=== PATIENT | female | born 1940 | race Caucasian/White ===

== ENCOUNTER 2017-08-25 17:06 | Inpatient (IN) | payer MEDICARE, MEDICAID ==
--- NOTE | 2017-08-25 17:30 | ED Physician Chart ---
ED Chief Complaint/HPI - Patient Information Date Seen:: 08/25/17 Time Seen:: 17:29 Chief Complaint:: AGITATION, CRYING, FLAILING CONFUSED Allergies:: Allergies Allergy/AdvReac Type Severity Reaction Status Date / Time acetaminophen [From Tylenol] Allergy Verified 08/25/17 17:29 aspirin Allergy Verified 08/25/17 17:29 codeine Allergy Verified 08/25/17 17:29 Penicillins Allergy Verified 08/25/17 17:28 Sulfa (Sulfonamide Allergy Verified 08/25/17 17:28 Antibiotics) THE PATIENT IS DEMENTED AND UNABLE TO PROVIDE ANY INFORMATION REGARDING HER HISTORY OF PRESENT ILLNESS. Review:: Nurse's Note Reviewed, Transfer documents Reviewed ED Review of Systems - Review of Systems General/Constitutional: Other (PATIENT IS UNABLE TO PROVIDE ANY RELIABLE INFORMATION REGARDING REVIEW OF SYSTEMS. SHE DOES NOT ANSWER YES OR NO TO ANY OF THE QUESTIONS AND IS UNCOOPERATIVE WITH SIMPLE COMMANDS SUCH SQUEEZE MY FINGERS.) ED Past Medical History - Past Medical History Past Medical History: HTN, DM, CAD, CHF, CVA/TIA, Dementia Social History: Other (PATIENT UNABLE TO PROVIDE INFORMATION ON TOBACCO, ALCOHOL AND DRUG USE DUE TO DEMENTIA.) Family Medical History - Family Member Mother History Unknown: Yes ED Physical Exam - Physical Examination General/Constitutional: Awake, Well-developed, well-nourished, No distress, Non- toxic appearing Other Gen/Cons comments:: Nonambulatory. Head: Atraumatic Eyes: Lids, conjuctiva normal, PERRL Other Eyes comments:: Patient does not cooperate with EOM examination. Skin: No rash, No skin lesions, No ecchymosis, Well hydrated, No lymphadenopathy Other Skin comments:: No visible or palpable evidence of recent head injury. ENMT: External ears, nose nl, TM canals nl Other ENMT comments:: Gag reflex is active. patient is edentulous without plates. Neck: Nontender, Full ROM w/o pain, No JVD, No nuchal rigidity, No bruit, No mass, No stridor Respiratory: Nl effort/Exclusion, No Wheeze/Rhonchi/Rales Cardio Vascular: No murmur, gallop, rubs, NL S1 S2 Other Cardio Vascular comments:: Patient with adequate pulses in all 4 extremities. GI: No tenderness/rebounding/guarding, No organomegaly, No hernia, Normal BS's, Nondistended, No mass/bruits, No McBurney tenderness Other GI comments:: Rectal examination deferred at my discretion. : No CVA tenderness Other comments:: Pelvic examination deferred at my discretion. No female port traffic manager available. Ankle splint left lower extremity no obvious swelling and minimal tenderness on palpation over the lateral and medial malleoli. ED Labs/Radiology/EKG Results - Lab Results Results: Laboratory Results - last 24 hr 08/25/17 17:56 WBC 7.2 RBC 3.46 L Hgb 11.4 L Hct 33.1 L MCV 95.5 MCH 32.8 H MCHC Differential 34.4 RDW 13.5 Plt Count 369 MPV 7.1 Neutrophils % 54.9 Lymphocytes % 33.8 Monocytes % 7.7 Eosinophils % 2.9 Basophils % 0.7 The CBC is unremarkable with no leukocytosis, a mild anemia with a hemoglobin of 11.4 and platelet count within the normal parameters. Comprehensive metabolic panel pending at this time ED Assessment - Assessment General Assessment: CASE SUMMARY: THIS 76-YEAR-OLD FEMALE WAS SENT TO THE HOSPITAL BECAUSE OF INAPPROPRIATE CRYING, AGITATION, AND CONFUSION. THE TIME OF EXAMINATION THERE WAS NO EVIDENCE OF HEAD INJURY AND CRANIAL NERVES APPEARED TO BE INTACT. PATIENT DOES NOT ANSWER TO SIMPLE QUESTIONS SUCH WHAT IS YOUR NAME AND DOES NOT FOLLOW SIMPLE COMMANDS SUCH SQUEEZE MY FINGERS. THE PATIENT'S CHEST, ABDOMEN AND EXTREMITIES APPEAR TO BE NORMAL. CBC RETURNS WITH A NORMAL WHITE COUNT AND A MILD ANEMIA. ED Septic Shock - . Is Septic Shock (SBP<90, OR Lactate>4 mmol\L) present?: No ED Reassessment (Disposition) - Reassessment Reassessment Condition:: Unchanged - Diagnosis Diagnosis:: DEMENTIA/AGITATION NO EVIDENCE FOR SEPSIS. MEDICALLY CLEAR FOR ADMISSION TO GERIATRIC/PSYCH [facility]. ED Discharge Plan - Patient Disposition Admit/Discharge/Transfer: Acute Care w/in this hosp Condition at Disposition: Stable
[2017-08-25 18:03] LABS: % BASOPHILS 0.7 % (0.0-2.0); % EOSINOPHILS 2.9 % (0.0-5.0); % LYMPHOCYTES 33.8 % (20.0-50.0); % MONOCYTES 7.7 % (2.0-10.0); % NEUTROPHILS 54.9 % (40.0-80.0); BASOPHILE ABSOLUTE 0.1 Th/cumm (0-0.2); EOSINOPHILE ABSOLUTE 0.2 Th/cmm (0.1-0.4); HEMATOCRIT 33.1 % (41.0-60); HEMOGLOBIN 11.4 gm/dL (12-16); LYMPHOCYTE ABSOLUTE 2.4 Th/cmm (1.5-3.0); MEAN CELL VOLUME 95.5 fl (81-100); MEAN CORPUSCULAR HEMOGLOBIN 32.8 pg (27.0-31.0); MEAN CORPUSCULAR HGB CONC 34.4 pg (28.0-36.0); MEAN PLATELET VOLUME 7.1 fl; MONOCYTE ABSOLUTE 0.6 Th/cmm (0.3-1.0); NEUTROPHILE ABSOLUTE 3.9 Th/cmm (1.8-8.0); PLATELET COUNT 369 Th/cmm (150-400); RED BLOOD COUNT 3.46 Mil/cmm (3.80-5.20); RED CELL DISTRIBUTION WIDTH 13.5 % (11.5-20.0); WHITE BLOOD COUNT 7.2 Th/cmm (4.8-10.8)
[2017-08-25 18:18] LABS: ALB/GLOB RATIO 1.2 (1.0-1.8); ALBUMIN 3.6 gm/dL (3.7-5.3); ALKALINE PHOSPHATASE 62 U/L (34-104); ANION GAP 10.8 (7.0-16.0); BILIRUBIN,TOTAL 0.3 mg/dL (0.3-1.0); BUN - UREA NITROGEN 23 mg/dL (7-25); CALCIUM SERUM 9.5 mg/dL (8.6-10.3); CHLORIDE 102 mEq/L (98-107); CREATININE - SERUM 0.7 mg/dL (0.6-1.2); GLUCOSE 192 mg/dL (70-105); POTASSIUM SERUM 3.8 mEq/L (3.5-5.1); SGOT 15 U/L (13-39); SGPT/ALT 18 U/L (7-52); SODIUM SERUM 135 mEq/L (136-145); TOTAL PROTEIN,SERUM 6.7 gm/dL (6.0-8.3)
[2017-08-25 20:44] VITALS: BP 147/70
[2017-08-25] MEDS ORDERED: Maalox 30 mL Cup PO PRN (20:45)
[2017-08-25] MEDS ORDERED: Magnesium Hydroxide (MOM) 30 mL UDC PO PRN (20:45)
[2017-08-25] MEDS ORDERED: [UNRECOGNIZED DRUG - OTHER] PO PRN (20:50)
[2017-08-25] MEDS ORDERED: Fleet Enema 135 mL RC PRN (20:50)
[2017-08-25] MEDS ORDERED: Non-Formulary Item 1 EA (Melatonin [Melatonin] 9 MG) PO SCH (21:00)
[2017-08-26] MEDS ORDERED: [UNRECOGNIZED DRUG - OTHER] PO SCH (09:00)
--- NOTE | 2017-08-26 09:06 | Diagnostic Imaging Report ---
Portable chest x-ray HISTORY: Shortness of breath The overall heart size is difficult to assess with portable technique in a poor inspiration. No acute focal bony processes. Atherosclerotic calcification seen in the aortic arch. IMPRESSION: 1. No acute focal pulmonary processes 2. Atherosclerotic vascular changes
[2017-08-26] MEDS: Lactulose 10 Gm/15 mL 30mL UDC PO SCH ×3 (09:27→17:06)
[2017-08-26] MEDS: Multivitamin Tab PO SCH ×2 (09:28→09:39)
[2017-08-26] MEDS: Hydrogel 3 oz Tube TP SCH (09:30)
--- NOTE | 2017-08-26 17:23 | History & Physical ---
ADMIT DATE: 08/26/2017 REASON FOR ADMISSION: Agitation. HISTORY OF PRESENT ILLNESS: A 76-year-old female presents after apparently getting agitated and crying. The patient was brought to the Emergency Room. No acute medical findings were found. The patient is being admitted for further treatment and care. The patient is a poor historian, appears in no pain or distress. PAST MEDICAL HISTORY: The patient has history of diabetes mellitus, dementia, also noted in records, the patient has hypertension, coronary artery disease, congestive heart failure, previous history of CVA or TIA. MEDICATIONS: As per reconciliation. ALLERGIES: No known drug allergies. SOCIAL HISTORY: No tobacco, alcohol or drug use. FAMILY HISTORY: Noncontributory. REVIEW OF SYSTEMS: IMMUNOLOGIC: . CARDIOVASCULAR: The patient has chronic heart disease and hypertension. GASTROINTESTINAL: No nausea, vomiting or diarrhea. ENDOCRINE: The patient is diabetic. . NEUROLOGIC: No seizure or stroke. HEMATOLOGIC: No bleeding or clotting disorder. PHYSICAL EXAMINATION: GENERAL: The patient is awake and alert, in no acute distress. VITAL SIGNS: Temperature 98.0, pulse 96, respiration 18, blood pressure 141/84. HEENT: Pupils equally round, anicteric sclerae. NECK: Supple, no JVD, mass or bruit. LUNGS: Clear to auscultation. HEART: S1, S2 regular rate and rhythm. ABDOMEN: Soft, nontender, positive bowel sounds. EXTREMITIES: No clubbing, cyanosis, or edema. NEUROLOGIC: Unable to follow command. LABORATORY DATA: WBC is 7.2, hemoglobin 11.4, sodium is 135, glucose is 192, albumin is 3.6. IMPRESSION: 1. Diabetes mellitus. 2. Dementia. 3. Anemia. PLAN: Admit to Geropsych Unit. Continue with the patient's home medications. She is medically cleared to participate in activities. JOB# [id number]
[2017-08-26 17:59] LABS: A1C % 6.2 % (4.0-6.0)
--- NOTE | 2017-08-27 00:35 | Consultation ---
DATE OF CONSULTATION: 08/26/2017 INITIAL PSYCHIATRIC EVALUATION IDENTIFYING DATA: A 76-year-old female. REASON FOR HOSPITALIZATION: Agitation and psychotic behavior. CHIEF COMPLAINT: Irritable, crying, does not engage in conversation. HISTORY OF PRESENT ILLNESS: The patient is a 76-year-old female with a previous history of dementia and prediabetes, who was brought in here for workup, more irritable and agitated and crying. She was medically cleared from the ER. Today on [id number] evaluation, the patient wakes up, does not engage in conversation, becomes just crying, tearful, disengaged. Nursing staff overnight continues to report that she is not able to sleep and when she is awake, she just cries tearfully and does not engage in conversation, disengaged ____ is consistent with my interview. PAST MEDICAL HISTORY: Includes history of bimalleolar fracture of right ankle status post ORIF, osteopenia of the ankle. Hypertension, diabetes, CAD, CHF, and CVA with a history of TIA. PAST PSYCHIATRIC HISTORY: Dementia. ALLERGIES TO MEDICATIONS: NKDA. LEGAL HISTORY: Unknown. FAMILY PSYCHIATRIC HISTORY: Unknown. Labs were reviewed. ALLERGIES TO MEDICATION: Clarification seen by medical records include ASPIRIN, CODEINE, PENICILLINS and SULFA medications. SOCIAL HISTORY: Unable to give much information. Per medical records, no history of alcohol or drug use. CURRENT HOME MEDICATIONS: Include bisacodyl, famotidine, metformin, senna. MENTAL STATUS EXAMINATION: Calm, initially irritable, tearful and selectively mute, disengaging, able to assess thought process, thought content, observed to be disorganized, derails with conversations. Limited insight, judgment and impulse control. ONSET OF ILLNESS: Unknown. STRENGTH: Good family support system. WEAKNESSES: Poor coping skills. Physical pain 0/10. Physical impairment, none. PRIMARY DIAGNOSIS: Dementia with behavior disturbance and psychosis. SECONDARY DIAGNOSIS: None. MEDICAL DIAGNOSIS: As noted above. PLAN: The patient is a 76-year-old female with history of dementia with a teary mental status. Medically cleared from the medical unit. We will start the patient on Aricept and low dose of Seroquel. She continues to present very disorganized, resulting in self-injurious behavior. ESTIMATED LENGTH OF STAY: 5 to 10 days. DISCHARGE CRITERIA: Demonstrate euthymic mood. Engaging. JOB# [id number]
--- NOTE | 2017-08-27 09:17 | General Progress Note ---
Subjective - Review of Systems Service Date: 08/27/17 Subjective: awake, yelling spits out meds poor oral intake Objective - Results Result Diagrams: 08/25/17 17:56 08/25/17 17:56 Recent Labs: Laboratory Last Values WBC 7.2 Th/cmm (4.8-10.8) 08/25/17 17:56 RBC 3.46 Mil/cmm (3.80-5.20) L 08/25/17 17:56 Hgb 11.4 gm/dL (12-16) L 08/25/17 17:56 Hct 33.1 % (41.0-60) L 08/25/17 17:56 MCV 95.5 fl (81-100) 08/25/17 17:56 MCH 32.8 pg (27.0-31.0) H 08/25/17 17:56 MCHC Differential 34.4 pg (28.0-36.0) 08/25/17 17:56 RDW 13.5 % (11.5-20.0) 08/25/17 17:56 Plt Count 369 Th/cmm (150-400) 08/25/17 17:56 MPV 7.1 fl 08/25/17 17:56 Neutrophils % 54.9 % (40.0-80.0) 08/25/17 17:56 Lymphocytes % 33.8 % (20.0-50.0) 08/25/17 17:56 Monocytes % 7.7 % (2.0-10.0) 08/25/17 17:56 Eosinophils % 2.9 % (0.0-5.0) 08/25/17 17:56 Basophils % 0.7 % (0.0-2.0) 08/25/17 17:56 Sodium 135 mEq/L (136-145) L 08/25/17 17:56 Potassium 3.8 mEq/L (3.5-5.1) 08/25/17 17:56 Chloride 102 mEq/L (98-107) 08/25/17 17:56 Carbon Dioxide 26.0 mEq/L (21.0-31.0) 08/25/17 17:56 Anion Gap 10.8 (7.0-16.0) 08/25/17 17:56 BUN 23 mg/dL (7-25) 08/25/17 17:56 Creatinine 0.7 mg/dL (0.6-1.2) 08/25/17 17:56 Est GFR ( Amer) TNP 08/25/17 17:56 Est GFR (Non-Af Amer) TNP 08/25/17 17:56 BUN/Creatinine Ratio 32.9 08/25/17 17:56 Glucose 192 mg/dL (70-105) H 08/25/17 17:56 Hemoglobin A1c % 6.2 % (4.0-6.0) H 08/25/17 17:56 Whole Bld Lactic Acid 1.57 mmol/L (0.60-1.99) 08/25/17 17:56 Calcium 9.5 mg/dL (8.6-10.3) 08/25/17 17:56 Total Bilirubin 0.3 mg/dL (0.3-1.0) 08/25/17 17:56 AST 15 U/L (13-39) 08/25/17 17:56 ALT 18 U/L (7-52) 08/25/17 17:56 Alkaline Phosphatase 62 U/L (34-104) 08/25/17 17:56 Total Protein 6.7 gm/dL (6.0-8.3) 08/25/17 17:56 Albumin 3.6 gm/dL (3.7-5.3) L 08/25/17 17:56 Globulin 3.1 gm/dL 08/25/17 17:56 Albumin/Globulin Ratio 1.2 (1.0-1.8) 08/25/17 17:56 - Physical Exam Vitals and I&O: Vital Signs Temp 97 F 08/27/17 05:26 Pulse 91 08/27/17 05:26 Resp 18 08/27/17 05:26 BP 121/97 08/27/17 05:26 Pulse Ox 95 08/27/17 05:26 Intake & Output 08/26/17 08/27/17 08/27/17 18:59 06:59 18:59 Intake Total 900 360 Balance 900 360 Intake: Oral 900 360 Other: # Voids 3 1 Active Medications: Current Medications Acetaminophen (Tylenol) 650 mg PO Q4H PRN PRN Reason: Mild Pain / Temp above 100 Stop: 10/24/17 20:44 Al Hydrox/Mg Hydrox/Simethicone (Maalox) 30 ml PO Q4H PRN PRN Reason: GI DISTRESS Stop: 10/24/17 20:44 Bandage/Support Products (Hydrogel) 1 appl TP DAILY [facility] Stop: 10/25/17 08:59 Last Admin: 08/26/17 09:30 Dose: 1 appl Bisacodyl (Dulcolax 5 Mg Ec Tab) 10 mg PO DAILY PRN PRN Reason: Constipation Stop: 10/24/17 20:49 Donepezil HCl (Aricept) 5 mg PO DAILY [facility] Stop: 10/25/17 08:59 Last Admin: 08/26/17 09:38 Dose: Not Given Ergocalciferol (Vitamin D) 50,000 iu PO QWEEK [facility] Stop: 10/26/17 08:59 Famotidine (Pepcid) 20 mg PO DAILY [facility] Stop: 10/25/17 08:59 Last Admin: 08/26/17 09:38 Dose: Not Given Lactulose (Cephulac) 10 gm PO BID [facility] Stop: 10/25/17 08:59 Last Admin: 08/26/17 17:06 Dose: Not Given Lorazepam (Ativan) 0.5 mg PO Q4HR PRN; Protocol PRN Reason: Anxiety Stop: 09/24/17 20:44 Magnesium Hydroxide (Milk Of Magnesia) 30 ml PO HS PRN PRN Reason: Constipation Megestrol Acetate (Megace) 400 mg PO DAILY [facility] Stop: 10/25/17 08:59 Last Admin: 08/26/17 09:38 Dose: Not Given Metformin HCl (Glucophage) 500 mg PO DAILY [facility] Stop: 10/25/17 08:59 Last Admin: 08/26/17 09:39 Dose: Not Given Multivitamins/Vitamin C (Theragran) 1 tab PO DAILY [facility] Stop: 10/25/17 08:59 Last Admin: 08/26/17 09:39 Dose: Not Given Oxycodone HCl (Oxycodone Ir) 2.5 mg PO Q6H PRN PRN Reason: Pain (Severe) Stop: 10/25/17 07:29 Quetiapine Fumarate (Seroquel) 12.5 mg PO BID JIL PRN Reason: Protocol Stop: 10/25/17 08:59 Last Admin: 08/26/17 17:06 Dose: 12.5 mg Senna (Senna) 8.6 mg PO BID PRN PRN Reason: Constipation Stop: 10/24/17 20:49 Sodium Phosphate (Fleet Enema) 135 ml RC DAILY PRN PRN Reason: NO BM IN THREE DAYS Stop: 10/24/17 20:49 Tramadol HCl (Ultram) 50 mg PO Q6H PRN PRN Reason: MODERATE PAIN Stop: 10/24/17 20:49 Last Admin: 08/26/17 18:31 Dose: 50 mg Zolpidem Tartrate (Ambien) 5 mg PO HS PRN PRN Reason: Insomnia Stop: 10/24/17 20:44 Last Admin: 08/26/17 20:08 Dose: 5 mg General: No acute distress HEENT: Atraumatic Neck: Supple, JVD Cardiovascular: Regular rate, Normal S1, Normal S2 Lungs: Clear to auscultation Abdomen: Bowel sounds, Soft - Procedures Procedures: Procedures Procedure Code Date EXCIS KNEE SEMILUN CARTL 80.6 02/12/04 INJECT/INFUSE NEC 99.29 10/09/07 KNEE ARTHROSCOPY/SURGERY 11134 02/12/04 KNEE ARTHROSCOPY/SURGERY 33988 02/12/04 OTHER REPAIR OF KNEE 81.47 02/12/04 THER/PROPH/DIAG INJ, IV PUSH [id number] 10/09/07 TX/PRO/DX INJ NEW DRUG ADDON 67189 10/09/07 Assessment/Plan - Assessment Assessment: PSYCHIATRIC DISORDER DJD DM ANEMIA MILD PROTEIN MALNUTRITION - Plan Plan: CHECK BLOOD TEST ENCOURAGE HYDRATION TRY TO GIVE PAIN MEDS, PSYCH MEDS
[2017-08-27] MEDS: oxyCODONE 5 mg IR Tab PO PRN ×2 (09:22→20:16)
[2017-08-27 09:31] LABS: % BASOPHILS 0.7 % (0.0-2.0); % EOSINOPHILS 1.7 % (0.0-5.0); % LYMPHOCYTES 33.6 % (20.0-50.0); % MONOCYTES 6.9 % (2.0-10.0); % NEUTROPHILS 57.1 % (40.0-80.0); BASOPHILE ABSOLUTE 0.1 Th/cumm (0-0.2); EOSINOPHILE ABSOLUTE 0.1 Th/cmm (0.1-0.4); HEMATOCRIT 37.4 % (41.0-60); HEMOGLOBIN 12.6 gm/dL (12-16); LYMPHOCYTE ABSOLUTE 2.9 Th/cmm (1.5-3.0); MEAN CELL VOLUME 95.1 fl (81-100); MEAN CORPUSCULAR HEMOGLOBIN 32.1 pg (27.0-31.0); MEAN CORPUSCULAR HGB CONC 33.8 pg (28.0-36.0); MEAN PLATELET VOLUME 7.3 fl; MONOCYTE ABSOLUTE 0.6 Th/cmm (0.3-1.0); NEUTROPHILE ABSOLUTE 4.8 Th/cmm (1.8-8.0); PLATELET COUNT 408 Th/cmm (150-400); RED BLOOD COUNT 3.94 Mil/cmm (3.80-5.20); RED CELL DISTRIBUTION WIDTH 13.6 % (11.5-20.0); WHITE BLOOD COUNT 8.5 Th/cmm (4.8-10.8)
[2017-08-27 09:47] LABS: ANION GAP 12.6 (7.0-16.0); BUN - UREA NITROGEN 22 mg/dL (7-25); CALCIUM SERUM 10.1 mg/dL (8.6-10.3); CARBON DIOXIDE 23.3 mEq/L (21.0-31.0); CHLORIDE 102 mEq/L (98-107); CREATININE - SERUM 0.9 mg/dL (0.6-1.2); GLUCOSE 224 mg/dL (70-105); POTASSIUM SERUM 3.9 mEq/L (3.5-5.1); SODIUM SERUM 134 mEq/L (136-145)
[2017-08-27] MEDS: Lactulose 10 Gm/15 mL 30mL UDC PO SCH ×2 (12:17→16:50)
[2017-08-27] MEDS: Multivitamin Tab PO SCH (12:17)
[2017-08-27 15:52] LABS: URINE MICROSCOPIC INDICATED? YES; URINE SOURCE CATH
[2017-08-27 15:53] LABS: URINE BILIRUBIN NEGATIVE (NEGATIVE); URINE BLOOD NEGATIVE (NEGATIVE); URINE CLARITY CLEAR (CLEAR); URINE COLOR YELLOW; URINE GLUCOSE (UA) NEGATIVE (NEGATIVE); URINE KETONE NEGATIVE (NEGATIVE); URINE LEUKOCYTE ESTERASE NEGATIVE (NEGATIVE); URINE NITRATE NEGATIVE (NEGATIVE); URINE PH 5.5 (4.6 - 8.0); URINE PROTEIN NEGATIVE (NEGATIVE); URINE UROBILINOGEN 0.2 E.U./dL (0.2 - 1.0)
[2017-08-27 15:58] LABS: URINE EPITHELIAL CELLS FEW /lpf (FEW)
[2017-08-27 15:59] LABS: URINE AMORPHOUS SEDIMENT MODERATE URATES (NONE SEEN); URINE BACTERIA MODERATE /hpf (NONE SEEN)
--- NOTE | 2017-08-27 18:15 | Progress Notes ---
DATE: 08/27/[address] Galindo. SUBJECTIVE: Today, the patient is observed selectively mute, withdrawn, disengaged and upon approach, does not give much more information. Overnight, nursing staff reported the patient slept overnight, but has been minimally interactive and very disengaged. I appreciate the physical examination and consultation from Dr. Anders, diagnosed with diabetes, dementia, and anemia. MENTAL STATUS EXAMINATION: Withdrawn, disengaged. LABORATORY DATA: Reviewed. ASSESSMENT AND PLAN: The patient is a 76-year-old female who presents very withdrawn and disengaged, unable to engage in conversation, selectively mute with bites on her lips, self-injurious behavior. We are going to have a second opinion come and evaluate the patient to evaluate for any other potential dehydration. Continue with the Seroquel at this point and continue monitoring, evaluating the patient's mental status. JOB# [id number]
[2017-08-27] MEDS: Hydrogel 3 oz Tube TP SCH (19:04)
[2017-08-27 20:07] LABS: URINE RBC 0-2 /hpf (0-5)
[2017-08-28] MEDS: oxyCODONE 5 mg IR Tab PO PRN ×3 (08:03→20:55)
[2017-08-28] MEDS: Lactulose 10 Gm/15 mL 30mL UDC PO SCH ×2 (08:21→16:48)
[2017-08-28] MEDS: Multivitamin Tab PO SCH (08:23)
[2017-08-28] MEDS: Hydrogel 3 oz Tube TP SCH (10:00)
--- NOTE | 2017-08-28 10:05 | Progress Notes ---
DATE: SUBJECTIVE: The patient was seen and evaluated. The patient's chart reviewed. Vital signs reviewed, stable. Labs on 08/27/2017 within normal limits. Some moderate bacteria. I appreciate Dr. Anders who recommends encouragement of hydration and continued with pain meds. Overnight is observed to the patient's Ativan is disinhibiting the patient. MENTAL STATUS EXAMINATION: Irritable observed to be in pain. ASSESSMENT AND PLAN: The patient is a 76-year-old female with severe dementia, disorganized and confused, thought process. We will obtain more collateral baseline information. We will discontinue the Ativan and continue with the Seroquel. She continues state. We will adjust and targeting pain per medical doctor recommendations. JOB# [id number]
--- NOTE | 2017-08-28 14:58 | General Progress Note ---
Subjective - Review of Systems Service Date: 08/28/17 Subjective: agitated off and on unable to communicate needs Objective - Results Result Diagrams: 08/27/17 09:25 08/27/17 09:25 Recent Labs: Laboratory Last Values WBC 8.5 Th/cmm (4.8-10.8) 08/27/17 09:25 RBC 3.94 Mil/cmm (3.80-5.20) 08/27/17 09:25 Hgb 12.6 gm/dL (12-16) 08/27/17 09:25 Hct 37.4 % (41.0-60) L 08/27/17 09:25 MCV 95.1 fl (81-100) 08/27/17 09:25 MCH 32.1 pg (27.0-31.0) H 08/27/17 09:25 MCHC Differential 33.8 pg (28.0-36.0) 08/27/17 09:25 RDW 13.6 % (11.5-20.0) 08/27/17 09:25 Plt Count 408 Th/cmm (150-400) H 08/27/17 09:25 MPV 7.3 fl 08/27/17 09:25 Neutrophils % 57.1 % (40.0-80.0) 08/27/17 09:25 Lymphocytes % 33.6 % (20.0-50.0) 08/27/17 09:25 Monocytes % 6.9 % (2.0-10.0) 08/27/17 09:25 Eosinophils % 1.7 % (0.0-5.0) 08/27/17 09:25 Basophils % 0.7 % (0.0-2.0) 08/27/17 09:25 Sodium 134 mEq/L (136-145) L 08/27/17 09:25 Potassium 3.9 mEq/L (3.5-5.1) 08/27/17 09:25 Chloride 102 mEq/L (98-107) 08/27/17 09:25 Carbon Dioxide 23.3 mEq/L (21.0-31.0) 08/27/17 09:25 Anion Gap 12.6 (7.0-16.0) 08/27/17 09:25 BUN 22 mg/dL (7-25) 08/27/17 09:25 Creatinine 0.9 mg/dL (0.6-1.2) 08/27/17 09:25 Est GFR ( Amer) TNP 08/27/17 09:25 Est GFR (Non-Af Amer) TNP 08/27/17 09:25 BUN/Creatinine Ratio 24.4 08/27/17 09:25 Glucose 224 mg/dL (70-105) H 08/27/17 09:25 Hemoglobin A1c % 6.2 % (4.0-6.0) H 08/25/17 17:56 Whole Bld Lactic Acid 1.57 mmol/L (0.60-1.99) 08/25/17 17:56 Calcium 10.1 mg/dL (8.6-10.3) 08/27/17 09:25 Total Bilirubin 0.3 mg/dL (0.3-1.0) 08/25/17 17:56 AST 15 U/L (13-39) 08/25/17 17:56 ALT 18 U/L (7-52) 08/25/17 17:56 Alkaline Phosphatase 62 U/L (34-104) 08/25/17 17:56 Total Protein 6.7 gm/dL (6.0-8.3) 08/25/17 17:56 Albumin 3.6 gm/dL (3.7-5.3) L 08/25/17 17:56 Globulin 3.1 gm/dL 08/25/17 17:56 Albumin/Globulin Ratio 1.2 (1.0-1.8) 08/25/17 17:56 Urine Source CATH 08/27/17 14:50 Urine Color YELLOW 08/27/17 14:50 Urine Clarity CLEAR (CLEAR) 08/27/17 14:50 Urine pH 5.5 (4.6 - 8.0) 08/27/17 14:50 Ur Specific [place] >= 1.030 (1.005-1.030) 08/27/17 14:50 Urine Protein NEGATIVE mg/dL (NEGATIVE) 08/27/17 14:50 Urine Glucose (UA) NEGATIVE mg/dL (NEGATIVE) 08/27/17 14:50 Urine Ketones NEGATIVE mg/dL (NEGATIVE) 08/27/17 14:50 Urine Blood NEGATIVE (NEGATIVE) 08/27/17 14:50 Urine Nitrate NEGATIVE (NEGATIVE) 08/27/17 14:50 Urine Bilirubin NEGATIVE (NEGATIVE) 08/27/17 14:50 Urine Urobilinogen 0.2 E.U./dL (0.2 - 1.0) 08/27/17 14:50 Ur Leukocyte Esterase NEGATIVE (NEGATIVE) 08/27/17 14:50 Urine RBC 0-2 /hpf (0-5) 08/27/17 14:50 Urine WBC 2-5 /hpf (0-5) 08/27/17 14:50 Ur Epithelial Cells FEW /lpf (FEW) 08/27/17 14:50 Amorphous Sediment MODERATE URATES (NONE SEEN) 08/27/17 14:50 Urine Bacteria MODERATE /hpf (NONE SEEN) H 08/27/17 14:50 - Physical Exam Vitals and I&O: Vital Signs Temp 97.1 F 08/28/17 06:15 Pulse 103 08/28/17 06:15 Resp 19 08/28/17 06:15 BP 160/74 08/28/17 06:15 Pulse Ox 98 08/28/17 06:15 Intake & Output 08/27/17 08/28/17 08/28/17 18:59 06:59 18:59 Intake Total 800 300 Balance 800 300 Intake: Oral 800 300 Other: # Voids 4 2 # Bowel Movements 1 1 Active Medications: Current Medications Acetaminophen (Tylenol) 650 mg PO Q4H PRN PRN Reason: Mild Pain / Temp above 100 Stop: 10/24/17 20:44 Al Hydrox/Mg Hydrox/Simethicone (Maalox) 30 ml PO Q4H PRN PRN Reason: GI DISTRESS Stop: 10/24/17 20:44 Bandage/Support Products (Hydrogel) 1 appl TP DAILY [facility] Stop: 10/25/17 08:59 Last Admin: 08/28/17 10:00 Dose: 1 appl Bisacodyl (Dulcolax 5 Mg Ec Tab) 10 mg PO DAILY PRN PRN Reason: Constipation Stop: 10/24/17 20:49 Donepezil HCl (Aricept) 5 mg PO DAILY [facility] Stop: 10/25/17 08:59 Last Admin: 08/28/17 08:21 Dose: Not Given Ergocalciferol (Vitamin D) 50,000 iu PO QWEEK [facility] Stop: 10/26/17 08:59 Last Admin: 08/27/17 12:17 Dose: Not Given Famotidine (Pepcid) 20 mg PO DAILY [facility] Stop: 10/25/17 08:59 Last Admin: 08/28/17 08:21 Dose: Not Given Lactulose (Cephulac) 10 gm PO BID [facility] Stop: 10/25/17 08:59 Last Admin: 08/28/17 08:21 Dose: 10 gm Magnesium Hydroxide (Milk Of Magnesia) 30 ml PO HS PRN PRN Reason: Constipation Megestrol Acetate (Megace) 400 mg PO DAILY [facility] Stop: 10/25/17 08:59 Last Admin: 08/28/17 08:23 Dose: 400 mg Metformin HCl (Glucophage) 500 mg PO DAILY [facility] Stop: 10/25/17 08:59 Last Admin: 08/28/17 08:23 Dose: Not Given Multivitamins/Vitamin C (Theragran) 1 tab PO DAILY [facility] Stop: 10/25/17 08:59 Last Admin: 08/28/17 08:23 Dose: Not Given Oxycodone HCl (Oxycodone Ir) 2.5 mg PO Q6H PRN PRN Reason: Pain (Severe) Stop: 10/25/17 07:29 Last Admin: 08/28/17 14:39 Dose: 2.5 mg Quetiapine Fumarate (Seroquel) 25 mg PO BID JIL PRN Reason: Protocol Stop: 10/27/17 08:59 Last Admin: 08/28/17 08:24 Dose: 25 mg Senna (Senna) 8.6 mg PO BID PRN PRN Reason: Constipation Stop: 10/24/17 20:49 Sodium Phosphate (Fleet Enema) 135 ml RC DAILY PRN PRN Reason: NO BM IN THREE DAYS Stop: 10/24/17 20:49 Last Admin: 08/27/17 10:39 Dose: 135 ml Tramadol HCl (Ultram) 50 mg PO Q6H PRN PRN Reason: MODERATE PAIN Stop: 10/24/17 20:49 Last Admin: 08/27/17 17:26 Dose: 50 mg Zolpidem Tartrate (Ambien) 5 mg PO HS PRN PRN Reason: Insomnia Stop: 10/24/17 20:44 Last Admin: 08/26/17 20:08 Dose: 5 mg General: No acute distress HEENT: Atraumatic Neck: Supple, JVD Cardiovascular: Regular rate, Normal S1, Normal S2 Lungs: Clear to auscultation Abdomen: Bowel sounds, Soft - Procedures Procedures: Procedures Procedure Code Date EXCIS KNEE SEMILUN CARTL 80.6 02/12/04 INJECT/INFUSE NEC 99.29 10/09/07 KNEE ARTHROSCOPY/SURGERY 00210 02/12/04 KNEE ARTHROSCOPY/SURGERY 16625 02/12/04 OTHER REPAIR OF KNEE 81.47 02/12/04 THER/PROPH/DIAG INJ, IV PUSH [id number] 10/09/07 TX/PRO/DX INJ NEW DRUG ADDON 62202 10/09/07 Assessment/Plan - Assessment Assessment: PSYCHIATRIC DISORDER DJD DM ANEMIA MILD PROTEIN MALNUTRITION - Plan Plan: encourage PO liquids discussed with staff
[2017-08-29] MEDS: Hydrogel 3 oz Tube TP SCH (09:50)
[2017-08-29] MEDS: Lactulose 10 Gm/15 mL 30mL UDC PO SCH ×2 (09:53→17:54)
[2017-08-29] MEDS: Multivitamin Tab PO SCH (09:54)
--- NOTE | 2017-08-29 11:59 | Internal Medicine Prog Note ---
Internal Medicine Subjective - Subjective Service Date: 08/29/17 Patient seen and examined:: with staff Patient is:: awake, non-verbal, in bed, confused Per staff patient has:: no adverse event Internal Medicine Objective - Results Result Diagrams: 08/27/17 09:25 08/27/17 09:25 Recent Labs: Laboratory Last Values WBC 8.5 Th/cmm (4.8-10.8) 08/27/17 09:25 RBC 3.94 Mil/cmm (3.80-5.20) 08/27/17 09:25 Hgb 12.6 gm/dL (12-16) 08/27/17 09:25 Hct 37.4 % (41.0-60) L 08/27/17 09:25 MCV 95.1 fl (81-100) 08/27/17 09:25 MCH 32.1 pg (27.0-31.0) H 08/27/17 09:25 MCHC Differential 33.8 pg (28.0-36.0) 08/27/17 09:25 RDW 13.6 % (11.5-20.0) 08/27/17 09:25 Plt Count 408 Th/cmm (150-400) H 08/27/17 09:25 MPV 7.3 fl 08/27/17 09:25 Neutrophils % 57.1 % (40.0-80.0) 08/27/17 09:25 Lymphocytes % 33.6 % (20.0-50.0) 08/27/17 09:25 Monocytes % 6.9 % (2.0-10.0) 08/27/17 09:25 Eosinophils % 1.7 % (0.0-5.0) 08/27/17 09:25 Basophils % 0.7 % (0.0-2.0) 08/27/17 09:25 Sodium 134 mEq/L (136-145) L 08/27/17 09:25 Potassium 3.9 mEq/L (3.5-5.1) 08/27/17 09:25 Chloride 102 mEq/L (98-107) 08/27/17 09:25 Carbon Dioxide 23.3 mEq/L (21.0-31.0) 08/27/17 09:25 Anion Gap 12.6 (7.0-16.0) 05/27/18 09:25 BUN 22 mg/dL (7-25) 08/27/17 09:25 Creatinine 0.9 mg/dL (0.6-1.2) 08/27/17 09:25 Est GFR ( Amer) TNP 08/27/17 09:25 Est GFR (Non-Af Amer) TNP 08/27/17 09:25 BUN/Creatinine Ratio 24.4 08/27/17 09:25 Glucose 224 mg/dL (70-105) H 08/27/17 09:25 Hemoglobin A1c % 6.2 % (4.0-6.0) H 08/25/17 17:56 Whole Bld Lactic Acid 1.57 mmol/L (0.60-1.99) 08/25/17 17:56 Calcium 10.1 mg/dL (8.6-10.3) 08/27/17 09:25 Total Bilirubin 0.3 mg/dL (0.3-1.0) 08/25/17 17:56 AST 15 U/L (13-39) 08/25/17 17:56 ALT 18 U/L (7-52) 08/25/17 17:56 Alkaline Phosphatase 62 U/L (34-104) 08/25/17 17:56 Total Protein 6.7 gm/dL (6.0-8.3) 08/25/17 17:56 Albumin 3.6 gm/dL (3.7-5.3) L 08/25/17 17:56 Globulin 3.1 gm/dL 08/25/17 17:56 Albumin/Globulin Ratio 1.2 (1.0-1.8) 08/25/17 17:56 Urine Source CATH 08/27/17 14:50 Urine Color YELLOW 08/27/17 14:50 Urine Clarity CLEAR (CLEAR) 08/27/17 14:50 Urine pH 5.5 (4.6 - 8.0) 08/27/17 14:50 Ur Specific [place] >= 1.030 (1.005-1.030) 08/27/17 14:50 Urine Protein NEGATIVE mg/dL (NEGATIVE) 08/27/17 14:50 Urine Glucose (UA) NEGATIVE mg/dL (NEGATIVE) 08/27/17 14:50 Urine Ketones NEGATIVE mg/dL (NEGATIVE) 08/27/17 14:50 Urine Blood NEGATIVE (NEGATIVE) 08/27/17 14:50 Urine Nitrate NEGATIVE (NEGATIVE) 08/27/17 14:50 Urine Bilirubin NEGATIVE (NEGATIVE) 08/27/17 14:50 Urine Urobilinogen 0.2 E.U./dL (0.2 - 1.0) 08/27/17 14:50 Ur Leukocyte Esterase NEGATIVE (NEGATIVE) 08/27/17 14:50 Urine RBC 0-2 /hpf (0-5) 08/27/17 14:50 Urine WBC 2-5 /hpf (0-5) 08/27/17 14:50 Ur Epithelial Cells FEW /lpf (FEW) 08/27/17 14:50 Amorphous Sediment MODERATE URATES (NONE SEEN) 08/27/17 14:50 Urine Bacteria MODERATE /hpf (NONE SEEN) H 08/27/17 14:50 - Physical Exam Vitals and I&O: Vital Signs Temp 97.1 F 08/29/17 06:15 Pulse 94 08/29/17 06:15 Resp 19 08/29/17 06:15 BP 132/69 08/29/17 06:15 Pulse Ox 99 08/29/17 06:15 Intake & Output 08/28/17 08/29/17 08/29/17 18:59 06:59 18:59 Intake Total 850 180 Balance 850 180 Intake: Oral 850 180 Other: # Voids 3 1 # Bowel Movements 1 0 Active Medications: Current Medications Acetaminophen (Tylenol) 650 mg PO Q4H PRN PRN Reason: Mild Pain / Temp above 100 Stop: 10/24/17 20:44 Last Admin: 08/29/17 09:53 Dose: 650 mg Al Hydrox/Mg Hydrox/Simethicone (Maalox) 30 ml PO Q4H PRN PRN Reason: GI DISTRESS Stop: 10/24/17 20:44 Bandage/Support Products (Hydrogel) 1 appl TP DAILY [facility] Stop: 10/25/17 08:59 Last Admin: 08/29/17 09:50 Dose: 1 appl Bisacodyl (Dulcolax 5 Mg Ec Tab) 10 mg PO DAILY PRN PRN Reason: Constipation Stop: 10/24/17 20:49 Donepezil HCl (Aricept) 5 mg PO DAILY [facility] Stop: 10/25/17 08:59 Last Admin: 08/29/17 09:54 Dose: 5 mg Ergocalciferol (Vitamin D) 50,000 iu PO QWEEK [facility] Stop: 10/26/17 08:59 Last Admin: 08/27/17 12:17 Dose: Not Given Famotidine (Pepcid) 20 mg PO DAILY [facility] Stop: 10/25/17 08:59 Last Admin: 08/29/17 09:54 Dose: 20 mg Lactulose (Cephulac) 10 gm PO BID [facility] Stop: 10/25/17 08:59 Last Admin: 08/29/17 09:53 Dose: 10 gm Magnesium Hydroxide (Milk Of Magnesia) 30 ml PO HS PRN PRN Reason: Constipation Megestrol Acetate (Megace) 400 mg PO DAILY [facility] Stop: 10/25/17 08:59 Last Admin: 08/29/17 09:53 Dose: 400 mg Metformin HCl (Glucophage) 500 mg PO DAILY [facility] Stop: 10/25/17 08:59 Last Admin: 08/29/17 09:54 Dose: 500 mg Multivitamins/Vitamin C (Theragran) 1 tab PO DAILY [facility] Stop: 10/25/17 08:59 Last Admin: 08/29/17 09:54 Dose: 1 tab Oxycodone HCl (Oxycodone Ir) 2.5 mg PO Q6H PRN PRN Reason: Pain (Severe) Stop: 10/25/17 07:29 Last Admin: 08/28/17 20:55 Dose: 2.5 mg Quetiapine Fumarate (Seroquel) 25 mg PO BID [facility] PRN Reason: Protocol Stop: 10/27/17 08:59 Last Admin: 08/29/17 09:53 Dose: 25 mg Senna (Senna) 8.6 mg PO BID PRN PRN Reason: Constipation Stop: 10/24/17 20:49 Sodium Phosphate (Fleet Enema) 135 ml RC DAILY PRN PRN Reason: NO BM IN THREE DAYS Stop: 10/24/17 20:49 Last Admin: 08/27/17 10:39 Dose: 135 ml Tramadol HCl (Ultram) 50 mg PO Q6H PRN PRN Reason: MODERATE PAIN Stop: 10/24/17 20:49 Last Admin: 08/27/17 17:26 Dose: 50 mg Zolpidem Tartrate (Ambien) 5 mg PO HS PRN PRN Reason: Insomnia Stop: 10/24/17 20:44 Last Admin: 08/28/17 20:55 Dose: 5 mg General: demented HEENT: NC/AT, PERRLA, EOMI, anicteric sclerae, throat clear Neck: Supple, No JVD, No thyromegaly, +2 carotid pulse wo bruit, No LAD, + JVD Lungs: CTAB Cardiovascular: RRR, Normal S1, Normal S2, without murmur Abdomen: non-tender, non-distended Extremities: clear Neurological: no change - Procedures Procedures: Procedures Procedure Code Date EXCIS KNEE SEMILUN CARTL 80.6 02/12/04 INJECT/INFUSE NEC 99.29 10/09/07 KNEE ARTHROSCOPY/SURGERY 11778 02/12/04 KNEE ARTHROSCOPY/SURGERY 17878 02/12/04 OTHER REPAIR OF KNEE 81.47 02/12/04 THER/PROPH/DIAG INJ, IV PUSH 21229 10/09/07 TX/PRO/DX INJ NEW DRUG ADDON 58743 10/09/07 Internal Medicine Assmt/Plan - Assessment Assessment: 1.DM. 2.ANEMIA. 3.DEMENTIA. - Plan Plan: CONTINUE ON CURRENT MEDICATION AND DIET.
[2017-08-29] MEDS: Venelex 60gm Tube TP SCH (16:55)
[2017-08-29] MEDS: oxyCODONE 5 mg IR Tab PO PRN (19:50)
--- NOTE | 2017-08-29 23:44 | Progress Notes ---
DATE: 08/29/2017 Daughter approaches me and wants me to continue the patient on Seroquel, wanting to give it clinical one more day. I will take her off Risperdal and put her back on Seroquel 25 mg b.i.d. We will stop trazodone. We will stop Risperdal. Continue Seroquel. JOB# [id number]
--- NOTE | 2017-08-30 00:01 | Progress Notes ---
DATE: 08/29/2017 SUBJECTIVE: The patient in the hospital, history of dementia, advanced. The patient with sundowning, crying, tearful episodes, combative with changing and ADLs. Daughter at bedside, concerned her mom is over sedated "she is not herself. I feel like she is dying." Not happy with her current treatment. The patient is currently on Aricept. Also, Seroquel. Daughter concerned. The patient is AO to name only, appearing quite blank, withdrawn. Medications were noted. ASSESSMENT: The patient quite flat on exam, appearing somewhat over sedated. The patient with poor sleep at night. PLAN: I will adjust the medications. Consider stopping Seroquel as it may be over sedating and initiating Namenda as well as Risperdal. Also, consider trazodone for sleep. We will monitor and follow up. JOB# [id number]
[2017-08-30] MEDS ORDERED: Haloperidol Lactate 5 mg/mL 1mL Vial ONE (07:02)
[2017-08-30] MEDS: Multivitamin Tab PO SCH (09:35)
[2017-08-30] MEDS: Lactulose 10 Gm/15 mL 30mL UDC PO SCH ×2 (09:36→16:53)
[2017-08-30] MEDS: Venelex 60gm Tube TP SCH (09:37)
[2017-08-30] MEDS: Hydrogel 3 oz Tube TP SCH (09:37)
--- NOTE | 2017-08-30 23:13 | Internal Medicine Prog Note ---
Internal Medicine Subjective - Subjective Service Date: 08/30/17 Patient seen and examined:: with staff Patient is:: awake, non-verbal, in bed, confused Per staff patient has:: no adverse event Internal Medicine Objective - Results Result Diagrams: 08/27/17 09:25 08/27/17 09:25 Recent Labs: Laboratory Last Values WBC 8.5 Th/cmm (4.8-10.8) 08/27/17 09:25 RBC 3.94 Mil/cmm (3.80-5.20) 08/27/17 09:25 Hgb 12.6 gm/dL (12-16) 08/27/17 09:25 Hct 37.4 % (41.0-60) L 08/27/17 09:25 MCV 95.1 fl (81-100) 08/27/17 09:25 MCH 32.1 pg (27.0-31.0) H 08/27/17 09:25 MCHC Differential 33.8 pg (28.0-36.0) 08/27/17 09:25 RDW 13.6 % (11.5-20.0) 08/27/17 09:25 Plt Count 408 Th/cmm (150-400) H 08/27/17 09:25 MPV 7.3 fl 08/27/17 09:25 Neutrophils % 57.1 % (40.0-80.0) 08/27/17 09:25 Lymphocytes % 33.6 % (20.0-50.0) 08/27/17 09:25 Monocytes % 6.9 % (2.0-10.0) 08/27/17 09:25 Eosinophils % 1.7 % (0.0-5.0) 08/27/17 09:25 Basophils % 0.7 % (0.0-2.0) 08/27/17 09:25 Sodium 134 mEq/L (136-145) L 08/27/17 09:25 Potassium 3.9 mEq/L (3.5-5.1) 08/27/17 09:25 Chloride 102 mEq/L (98-107) 08/27/17 09:25 Carbon Dioxide 23.3 mEq/L (21.0-31.0) 08/27/17 09:25 Anion Gap 12.6 (7.0-16.0) 05/27/18 09:25 BUN 22 mg/dL (7-25) 08/27/17 09:25 Creatinine 0.9 mg/dL (0.6-1.2) 08/27/17 09:25 Est GFR ( Amer) TNP 08/27/17 09:25 Est GFR (Non-Af Amer) TNP 08/27/17 09:25 BUN/Creatinine Ratio 24.4 08/27/17 09:25 Glucose 224 mg/dL (70-105) H 08/27/17 09:25 POC Glucose 243 MG/DL (70-105) H 08/28/17 19:26 Hemoglobin A1c % 6.2 % (4.0-6.0) H 08/25/17 17:56 Whole Bld Lactic Acid 1.57 mmol/L (0.60-1.99) 08/25/17 17:56 Calcium 10.1 mg/dL (8.6-10.3) 08/27/17 09:25 Total Bilirubin 0.3 mg/dL (0.3-1.0) 08/25/17 17:56 AST 15 U/L (13-39) 08/25/17 17:56 ALT 18 U/L (7-52) 08/25/17 17:56 Alkaline Phosphatase 62 U/L (34-104) 08/25/17 17:56 Total Protein 6.7 gm/dL (6.0-8.3) 08/25/17 17:56 Albumin 3.6 gm/dL (3.7-5.3) L 08/25/17 17:56 Globulin 3.1 gm/dL 08/25/17 17:56 Albumin/Globulin Ratio 1.2 (1.0-1.8) 08/25/17 17:56 Urine Source CATH 08/27/17 14:50 Urine Color YELLOW 08/27/17 14:50 Urine Clarity CLEAR (CLEAR) 08/27/17 14:50 Urine pH 5.5 (4.6 - 8.0) 08/27/17 14:50 Ur Specific [place] >= 1.030 (1.005-1.030) 08/27/17 14:50 Urine Protein NEGATIVE mg/dL (NEGATIVE) 08/27/17 14:50 Urine Glucose (UA) NEGATIVE mg/dL (NEGATIVE) 08/27/17 14:50 Urine Ketones NEGATIVE mg/dL (NEGATIVE) 08/27/17 14:50 Urine Blood NEGATIVE (NEGATIVE) 08/27/17 14:50 Urine Nitrate NEGATIVE (NEGATIVE) 08/27/17 14:50 Urine Bilirubin NEGATIVE (NEGATIVE) 08/27/17 14:50 Urine Urobilinogen 0.2 E.U./dL (0.2 - 1.0) 08/27/17 14:50 Ur Leukocyte Esterase NEGATIVE (NEGATIVE) 08/27/17 14:50 Urine RBC 0-2 /hpf (0-5) 08/27/17 14:50 Urine WBC 2-5 /hpf (0-5) 08/27/17 14:50 Ur Epithelial Cells FEW /lpf (FEW) 08/27/17 14:50 Amorphous Sediment MODERATE URATES (NONE SEEN) 08/27/17 14:50 Urine Bacteria MODERATE /hpf (NONE SEEN) H 08/27/17 14:50 - Physical Exam Vitals and I&O: Vital Signs Temp 97.6 F 08/30/17 20:00 Pulse 94 08/30/17 20:00 Resp 18 08/30/17 20:00 BP 129/77 08/30/17 20:00 Pulse Ox 97 08/30/17 20:00 Intake & Output 08/30/17 08/30/17 08/31/17 06:59 18:59 06:59 Intake Total 480 Balance 480 Intake: Oral 480 Other: # Voids 3 2 Active Medications: Current Medications Acetaminophen (Tylenol) 650 mg PO Q4H PRN PRN Reason: Mild Pain / Temp above 100 Stop: 10/24/17 20:44 Last Admin: 08/30/17 05:41 Dose: 650 mg Al Hydrox/Mg Hydrox/Simethicone (Maalox) 30 ml PO Q4H PRN PRN Reason: GI DISTRESS Stop: 10/24/17 20:44 Bandage/Support Products (Hydrogel) 1 appl TP DAILY [facility] Stop: 10/25/17 08:59 Last Admin: 08/30/17 09:37 Dose: 1 appl Bisacodyl (Dulcolax 5 Mg Ec Tab) 10 mg PO DAILY PRN PRN Reason: Constipation Stop: 10/24/17 20:49 [place] Oil/[place] Balsam/Trypsin (Venelex) 1 appl TP DAILY [facility] Stop: 10/28/17 15:59 Last Admin: 08/30/17 09:37 Dose: 1 appl Donepezil HCl (Aricept) 5 mg PO DAILY [facility] Stop: 10/25/17 08:59 Last Admin: 08/30/17 09:35 Dose: 5 mg Ergocalciferol (Vitamin D) 50,000 iu PO QWEEK [facility] Stop: 10/26/17 08:59 Last Admin: 08/27/17 12:17 Dose: Not Given Famotidine (Pepcid) 20 mg PO DAILY [facility] Stop: 10/25/17 08:59 Last Admin: 08/30/17 09:36 Dose: 20 mg Lactulose (Cephulac) 10 gm PO BID [facility] Stop: 10/25/17 08:59 Last Admin: 08/30/17 16:53 Dose: 10 gm Magnesium Hydroxide (Milk Of Magnesia) 30 ml PO HS PRN PRN Reason: Constipation Megestrol Acetate (Megace) 400 mg PO DAILY [facility] Stop: 10/25/17 08:59 Last Admin: 08/30/17 09:35 Dose: 400 mg Metformin HCl (Glucophage) 500 mg PO DAILY [facility] Stop: 10/25/17 08:59 Last Admin: 08/30/17 09:35 Dose: 500 mg Multivitamins/Vitamin C (Theragran) 1 tab PO DAILY [facility] Stop: 10/25/17 08:59 Last Admin: 08/30/17 09:35 Dose: 1 tab Oxycodone HCl (Oxycodone Ir) 2.5 mg PO Q6H PRN PRN Reason: Pain (Severe) Stop: 10/25/17 07:29 Last Admin: 08/29/17 19:50 Dose: 2.5 mg Quetiapine Fumarate (Seroquel) 25 mg PO BID [facility]; Protocol Stop: 10/29/17 08:59 Last Admin: 08/30/17 16:53 Dose: 25 mg Quetiapine Fumarate (Seroquel) 50 mg PO TID [facility]; Protocol Stop: 10/29/17 13:59 Last Admin: 08/30/17 22:02 Dose: 50 mg Senna (Senna) 8.6 mg PO BID PRN PRN Reason: Constipation Stop: 10/24/17 20:49 Sodium Phosphate (Fleet Enema) 135 ml RC DAILY PRN PRN Reason: NO BM IN THREE DAYS Stop: 10/24/17 20:49 Last Admin: 08/27/17 10:39 Dose: 135 ml Tramadol HCl (Ultram) 50 mg PO Q6H PRN PRN Reason: MODERATE PAIN Stop: 10/24/17 20:49 Last Admin: 08/30/17 01:55 Dose: 50 mg General: demented HEENT: NC/AT, PERRLA, EOMI, anicteric sclerae, throat clear Neck: Supple, No JVD, No thyromegaly, +2 carotid pulse wo bruit, No LAD, + JVD Lungs: CTAB Cardiovascular: RRR, Normal S1, Normal S2, without murmur Abdomen: non-tender, non-distended Extremities: clear Neurological: no change - Procedures Procedures: Procedures Procedure Code Date EXCIS KNEE SEMILUN CARTL 80.6 02/12/04 INJECT/INFUSE NEC 99.29 10/09/07 KNEE ARTHROSCOPY/SURGERY 70534 02/12/04 KNEE ARTHROSCOPY/SURGERY 64159 02/12/04 OTHER REPAIR OF KNEE 81.47 02/12/04 THER/PROPH/DIAG INJ, IV PUSH 49078 10/09/07 TX/PRO/DX INJ NEW DRUG ADDON 51485 10/09/07 Internal Medicine Assmt/Plan - Assessment Assessment: 1.DM. 2.ANEMIA. 3.DEMENTIA. - Plan Plan: CONTINUE ON CURRENT MEDICATION AND DIET.
[2017-08-31] MEDS: Lactulose 10 Gm/15 mL 30mL UDC PO SCH ×2 (09:45→17:37)
[2017-08-31] MEDS: Multivitamin Tab PO SCH (09:46)
[2017-08-31] MEDS: Hydrogel 3 oz Tube TP SCH (09:47)
[2017-08-31] MEDS: Venelex 60gm Tube TP SCH (09:47)
[2017-08-31] MEDS ORDERED: Haloperidol Lactate 5 mg/mL 1mL Vial IM ONE (11:35)
[2017-08-31] MEDS ORDERED: Haloperidol Lactate 5 mg/mL 1mL Vial ONE (11:35)
--- NOTE | 2017-08-31 13:04 | Progress Notes ---
DATE: SUBJECTIVE: Chart reviewed and the patient interviewed. Also discussed the patient's condition with the staff and reviewed records and labs. The patient continued to be extremely agitated and in irritable mood. The patient has been yelling and screaming most of my interview and I tried to ask the patient questions. ____ continue to yell and scream. She is confused and still has disorganized thoughts. The patient also is not able to answer any of the questions and she continued to mumble in Hebrew language and the loud tone of voice with yelling and screaming behavior. Otherwise, the patient is compliant with taking her medications and yesterday, Dr. Pichardo stopped Risperdal and start back on Seroquel 25 mg twice a day since it seems that Seroquel was helping the patient more. We will continue to monitor her behavior and we will continue adjusting psychotropic medications and follow up closely. Actually, the current dose of Seroquel is 50 mg 3 times a day. [facility]# [id number]
--- NOTE | 2017-08-31 18:41 | Internal Medicine Prog Note ---
Internal Medicine Subjective - Subjective Service Date: 08/31/17 Patient seen and examined:: with staff Patient is:: awake, non-verbal, in bed, confused Per staff patient has:: no adverse event Internal Medicine Objective - Results Result Diagrams: 08/27/17 09:25 08/27/17 09:25 Recent Labs: Laboratory Last Values WBC 8.5 Th/cmm (4.8-10.8) 08/27/17 09:25 RBC 3.94 Mil/cmm (3.80-5.20) 08/27/17 09:25 Hgb 12.6 gm/dL (12-16) 08/27/17 09:25 Hct 37.4 % (41.0-60) L 08/27/17 09:25 MCV 95.1 fl (81-100) 08/27/17 09:25 MCH 32.1 pg (27.0-31.0) H 08/27/17 09:25 MCHC Differential 33.8 pg (28.0-36.0) 08/27/17 09:25 RDW 13.6 % (11.5-20.0) 08/27/17 09:25 Plt Count 408 Th/cmm (150-400) H 08/27/17 09:25 MPV 7.3 fl 08/27/17 09:25 Neutrophils % 57.1 % (40.0-80.0) 08/27/17 09:25 Lymphocytes % 33.6 % (20.0-50.0) 08/27/17 09:25 Monocytes % 6.9 % (2.0-10.0) 08/27/17 09:25 Eosinophils % 1.7 % (0.0-5.0) 08/27/17 09:25 Basophils % 0.7 % (0.0-2.0) 08/27/17 09:25 Sodium 134 mEq/L (136-145) L 08/27/17 09:25 Potassium 3.9 mEq/L (3.5-5.1) 08/27/17 09:25 Chloride 102 mEq/L (98-107) 08/27/17 09:25 Carbon Dioxide 23.3 mEq/L (21.0-31.0) 08/27/17 09:25 Anion Gap 12.6 (7.0-16.0) 05/27/18 09:25 BUN 22 mg/dL (7-25) 08/27/17 09:25 Creatinine 0.9 mg/dL (0.6-1.2) 08/27/17 09:25 Est GFR ( Amer) TNP 08/27/17 09:25 Est GFR (Non-Af Amer) TNP 08/27/17 09:25 BUN/Creatinine Ratio 24.4 08/27/17 09:25 Glucose 224 mg/dL (70-105) H 08/27/17 09:25 POC Glucose 160 MG/DL (70 - 105) H 08/31/17 16:39 Hemoglobin A1c % 6.2 % (4.0-6.0) H 08/25/17 17:56 Whole Bld Lactic Acid 1.57 mmol/L (0.60-1.99) 08/25/17 17:56 Calcium 10.1 mg/dL (8.6-10.3) 08/27/17 09:25 Total Bilirubin 0.3 mg/dL (0.3-1.0) 08/25/17 17:56 AST 15 U/L (13-39) 08/25/17 17:56 ALT 18 U/L (7-52) 08/25/17 17:56 Alkaline Phosphatase 62 U/L (34-104) 08/25/17 17:56 Total Protein 6.7 gm/dL (6.0-8.3) 08/25/17 17:56 Albumin 3.6 gm/dL (3.7-5.3) L 08/25/17 17:56 Globulin 3.1 gm/dL 08/25/17 17:56 Albumin/Globulin Ratio 1.2 (1.0-1.8) 08/25/17 17:56 Urine Source CATH 08/27/17 14:50 Urine Color YELLOW 08/27/17 14:50 Urine Clarity CLEAR (CLEAR) 08/27/17 14:50 Urine pH 5.5 (4.6 - 8.0) 08/27/17 14:50 Ur Specific [place] >= 1.030 (1.005-1.030) 08/27/17 14:50 Urine Protein NEGATIVE mg/dL (NEGATIVE) 08/27/17 14:50 Urine Glucose (UA) NEGATIVE mg/dL (NEGATIVE) 08/27/17 14:50 Urine Ketones NEGATIVE mg/dL (NEGATIVE) 08/27/17 14:50 Urine Blood NEGATIVE (NEGATIVE) 08/27/17 14:50 Urine Nitrate NEGATIVE (NEGATIVE) 08/27/17 14:50 Urine Bilirubin NEGATIVE (NEGATIVE) 08/27/17 14:50 Urine Urobilinogen 0.2 E.U./dL (0.2 - 1.0) 08/27/17 14:50 Ur Leukocyte Esterase NEGATIVE (NEGATIVE) 08/27/17 14:50 Urine RBC 0-2 /hpf (0-5) 08/27/17 14:50 Urine WBC 2-5 /hpf (0-5) 08/27/17 14:50 Ur Epithelial Cells FEW /lpf (FEW) 08/27/17 14:50 Amorphous Sediment MODERATE URATES (NONE SEEN) 08/27/17 14:50 Urine Bacteria MODERATE /hpf (NONE SEEN) H 08/27/17 14:50 - Physical Exam Vitals and I&O: Vital Signs Temp 97.0 F 08/31/17 15:17 Pulse 99 08/31/17 15:17 Resp 20 08/31/17 15:17 BP 105/55 08/31/17 15:17 Pulse Ox 97 08/31/17 15:17 Intake & Output 08/30/17 08/31/17 08/31/17 18:59 06:59 18:59 Intake Total 480 120 960 Balance 480 120 960 Intake: Oral 480 120 960 Other: # Voids 2 3 2 # Bowel Movements 0 Active Medications: Current Medications Acetaminophen (Tylenol) 650 mg PO Q4H PRN PRN Reason: Mild Pain / Temp above 100 Stop: 10/24/17 20:44 Last Admin: 08/30/17 05:41 Dose: 650 mg Al Hydrox/Mg Hydrox/Simethicone (Maalox) 30 ml PO Q4H PRN PRN Reason: GI DISTRESS Stop: 10/24/17 20:44 Bandage/Support Products (Hydrogel) 1 appl TP DAILY [facility] Stop: 10/25/17 08:59 Last Admin: 08/31/17 09:47 Dose: 1 appl Bisacodyl (Dulcolax 5 Mg Ec Tab) 10 mg PO DAILY PRN PRN Reason: Constipation Stop: 10/24/17 20:49 [place] Oil/[place] Balsam/Trypsin (Venelex) 1 appl TP DAILY [facility] [place] Stop: 10/28/17 15:59 Last Admin: 08/31/17 09:47 Dose: 1 appl Donepezil HCl (Aricept) 5 mg PO DAILY [facility] [place] Stop: 10/25/17 08:59 Last Admin: 08/31/17 09:47 Dose: 5 mg Ergocalciferol (Vitamin D) 50,000 iu PO QWEEK [facility] [place] Stop: 10/26/17 08:59 Last Admin: 08/27/17 12:17 Dose: Not Given Famotidine (Pepcid) 20 mg PO DAILY [facility] [place] Stop: 10/25/17 08:59 Last Admin: 08/31/17 09:47 Dose: 20 mg Lactulose (Cephulac) 10 gm PO BID [facility] [place] Stop: 10/25/17 08:59 Last Admin: 08/31/17 17:37 Dose: 10 gm Magnesium Hydroxide (Milk Of Magnesia) 30 ml PO HS PRN PRN Reason: Constipation Megestrol Acetate (Megace) 400 mg PO DAILY [facility] [place] Stop: 10/25/17 08:59 Last Admin: 08/31/17 09:45 Dose: 400 mg Metformin HCl (Glucophage) 500 mg PO DAILY [facility] [place] Stop: 10/25/17 08:59 Last Admin: 08/31/17 09:47 Dose: 500 mg Multivitamins/Vitamin C (Theragran) 1 tab PO DAILY [facility] [place] Stop: 10/25/17 08:59 Last Admin: 08/31/17 09:46 Dose: 1 tab Oxycodone HCl (Oxycodone Ir) 2.5 mg PO Q6H PRN PRN Reason: Pain (Severe) Stop: 10/25/17 07:29 Last Admin: 08/29/17 19:50 Dose: 2.5 mg Quetiapine Fumarate (Seroquel) 100 mg PO TID [facility] [place]; Protocol Stop: 10/30/17 08:59 Last Admin: 08/31/17 14:30 Dose: 100 mg Senna (Senna) 8.6 mg PO BID PRN PRN Reason: Constipation Stop: 10/24/17 20:49 Sodium Phosphate (Fleet Enema) 135 ml RC DAILY PRN PRN Reason: NO BM IN THREE DAYS Stop: 10/24/17 20:49 Last Admin: 08/27/17 10:39 Dose: 135 ml Tramadol HCl (Ultram) 50 mg PO Q6H PRN PRN Reason: MODERATE PAIN Stop: 10/24/17 20:49 Last Admin: 08/31/17 00:04 Dose: 50 mg General: demented HEENT: NC/AT, PERRLA, EOMI, anicteric sclerae, throat clear Neck: Supple, No JVD, No thyromegaly, +2 carotid pulse wo bruit, No LAD, + JVD Lungs: CTAB Cardiovascular: RRR, Normal S1, Normal S2, without murmur Abdomen: non-tender, non-distended Extremities: clear Neurological: no change - Procedures Procedures: Procedures Procedure Code Date EXCIS KNEE SEMILUN CARTL 80.6 02/12/04 INJECT/INFUSE NEC 99.29 10/09/07 KNEE ARTHROSCOPY/SURGERY 07877 02/12/04 KNEE ARTHROSCOPY/SURGERY 37915 02/12/04 OTHER REPAIR OF KNEE 81.47 02/12/04 THER/PROPH/DIAG INJ, IV PUSH 60177 10/09/07 TX/PRO/DX INJ NEW DRUG ADDON 25019 10/09/07 Internal Medicine Assmt/Plan - Assessment Assessment: 1.DM. 2.ANEMIA. 3.DEMENTIA. - Plan Plan: CONTINUE ON CURRENT MEDICATION AND DIET.
[2017-09-01] MEDS: Lactulose 10 Gm/15 mL 30mL UDC PO SCH ×2 (09:01→18:52)
[2017-09-01] MEDS: oxyCODONE 5 mg IR Tab PO PRN (09:03)
[2017-09-01] MEDS: Multivitamin Tab PO SCH (09:05)
[2017-09-01] MEDS: Venelex 60gm Tube TP SCH (11:34)
[2017-09-01] MEDS: Hydrogel 3 oz Tube TP SCH (11:34)
--- NOTE | 2017-09-01 11:56 | Progress Notes ---
DATE: 09/01/[address] Galindo. Case was discussed with staff of the patient and reviewed records. This is a 76-year-old female who was admitted on 08/25/2017 because of agitation and psychotic behavior. She was irritable, unable to engage in any information. The patient is demented, confused. The patient had many intramuscular injections because of her acting out behavior, agitation and when it wears off, she starts yelling and screaming again. She is on Aricept 5 mg a day, Seroquel 100 mg 3 times a day, tramadol. The staff believes that she does well when they give her the Haldol and so far no side effects with the medication, no sedation or nausea, no extrapyramidal symptoms. We will continue with the patient in group therapy, milieu therapy, adjust medication as needed. JOB# [id number]
--- NOTE | 2017-09-01 14:22 | Progress Notes ---
DATE: 08/31/2017 Chart reviewed and the patient interviewed. Also discussed the patient's condition with the staff and reviewed records and labs. The patient continued to be irritable and angry. She also is still yelling and screaming constantly and she is still using foul language to staff and tries to hit staff while trying to help with her ADLs. The patient also still has difficulty following any of staff directions. She is irritable and angry. The patient also did not sleep, except about 4 hours last night according to staff. Also, the patient is suspicious and is paranoid and seems to be confused. ASSESSMENT: The patient is still psychotic and can be dangerous to others. TREATMENT PLAN: We will continue to monitor her behavior and her condition closely. Also we will increase Seroquel to 100 mg three times a day. Also, continue to work on behavioral modification. JOB# [id number]
--- NOTE | 2017-09-01 18:47 | Internal Medicine Prog Note ---
Internal Medicine Subjective - Subjective Service Date: 09/01/17 Patient seen and examined:: with staff Patient is:: awake, non-verbal, in bed, confused Per staff patient has:: no adverse event Internal Medicine Objective - Results Result Diagrams: 08/27/17 09:25 08/27/17 09:25 Recent Labs: Laboratory Last Values WBC 8.5 Th/cmm (4.8-10.8) 08/27/17 09:25 RBC 3.94 Mil/cmm (3.80-5.20) 08/27/17 09:25 Hgb 12.6 gm/dL (12-16) 08/27/17 09:25 Hct 37.4 % (41.0-60) L 08/27/17 09:25 MCV 95.1 fl (81-100) 08/27/17 09:25 MCH 32.1 pg (27.0-31.0) H 08/27/17 09:25 MCHC Differential 33.8 pg (28.0-36.0) 08/27/17 09:25 RDW 13.6 % (11.5-20.0) 08/27/17 09:25 Plt Count 408 Th/cmm (150-400) H 08/27/17 09:25 MPV 7.3 fl 08/27/17 09:25 Neutrophils % 57.1 % (40.0-80.0) 08/27/17 09:25 Lymphocytes % 33.6 % (20.0-50.0) 08/27/17 09:25 Monocytes % 6.9 % (2.0-10.0) 08/27/17 09:25 Eosinophils % 1.7 % (0.0-5.0) 08/27/17 09:25 Basophils % 0.7 % (0.0-2.0) 08/27/17 09:25 Sodium 134 mEq/L (136-145) L 08/27/17 09:25 Potassium 3.9 mEq/L (3.5-5.1) 08/27/17 09:25 Chloride 102 mEq/L (98-107) 08/27/17 09:25 Carbon Dioxide 23.3 mEq/L (21.0-31.0) 08/27/17 09:25 Anion Gap 12.6 (7.0-16.0) 05/27/18 09:25 BUN 22 mg/dL (7-25) 08/27/17 09:25 Creatinine 0.9 mg/dL (0.6-1.2) 08/27/17 09:25 Est GFR ( Amer) TNP 08/27/17 09:25 Est GFR (Non-Af Amer) TNP 08/27/17 09:25 BUN/Creatinine Ratio 24.4 08/27/17 09:25 Glucose 224 mg/dL (70-105) H 08/27/17 09:25 POC Glucose 160 MG/DL (70 - 105) H 08/31/17 16:39 Hemoglobin A1c % 6.2 % (4.0-6.0) H 08/25/17 17:56 Whole Bld Lactic Acid 1.57 mmol/L (0.60-1.99) 08/25/17 17:56 Calcium 10.1 mg/dL (8.6-10.3) 08/27/17 09:25 Total Bilirubin 0.3 mg/dL (0.3-1.0) 08/25/17 17:56 AST 15 U/L (13-39) 08/25/17 17:56 ALT 18 U/L (7-52) 08/25/17 17:56 Alkaline Phosphatase 62 U/L (34-104) 08/25/17 17:56 Total Protein 6.7 gm/dL (6.0-8.3) 08/25/17 17:56 Albumin 3.6 gm/dL (3.7-5.3) L 08/25/17 17:56 Globulin 3.1 gm/dL 08/25/17 17:56 Albumin/Globulin Ratio 1.2 (1.0-1.8) 08/25/17 17:56 Urine Source CATH 08/27/17 14:50 Urine Color YELLOW 08/27/17 14:50 Urine Clarity CLEAR (CLEAR) 08/27/17 14:50 Urine pH 5.5 (4.6 - 8.0) 08/27/17 14:50 Ur Specific [place] >= 1.030 (1.005-1.030) 08/27/17 14:50 Urine Protein NEGATIVE mg/dL (NEGATIVE) 08/27/17 14:50 Urine Glucose (UA) NEGATIVE mg/dL (NEGATIVE) 08/27/17 14:50 Urine Ketones NEGATIVE mg/dL (NEGATIVE) 08/27/17 14:50 Urine Blood NEGATIVE (NEGATIVE) 08/27/17 14:50 Urine Nitrate NEGATIVE (NEGATIVE) 08/27/17 14:50 Urine Bilirubin NEGATIVE (NEGATIVE) 08/27/17 14:50 Urine Urobilinogen 0.2 E.U./dL (0.2 - 1.0) 08/27/17 14:50 Ur Leukocyte Esterase NEGATIVE (NEGATIVE) 08/27/17 14:50 Urine RBC 0-2 /hpf (0-5) 08/27/17 14:50 Urine WBC 2-5 /hpf (0-5) 08/27/17 14:50 Ur Epithelial Cells FEW /lpf (FEW) 08/27/17 14:50 Amorphous Sediment MODERATE URATES (NONE SEEN) 08/27/17 14:50 Urine Bacteria MODERATE /hpf (NONE SEEN) H 08/27/17 14:50 - Physical Exam Vitals and I&O: Vital Signs Temp 97.6 F 09/01/17 15:07 Pulse 99 09/01/17 15:07 Resp 20 09/01/17 15:07 BP 105/54 09/01/17 15:07 Pulse Ox 97 09/01/17 15:07 Intake & Output 08/31/17 09/01/17 09/01/17 18:59 06:59 18:59 Intake Total 960 960 Balance 960 960 Intake: Oral 960 960 Other: # Voids 2 2 # Bowel Movements 0 Active Medications: Current Medications Acetaminophen (Tylenol) 650 mg PO Q4H PRN PRN Reason: Mild Pain / Temp above 100 Stop: 10/24/17 20:44 Last Admin: 08/30/17 05:41 Dose: 650 mg Al Hydrox/Mg Hydrox/Simethicone (Maalox) 30 ml PO Q4H PRN PRN Reason: GI DISTRESS Stop: 10/24/17 20:44 Bandage/Support Products (Hydrogel) 1 appl TP DAILY JIL Stop: 10/25/17 08:59 Last Admin: 09/01/17 11:34 Dose: 1 appl Bisacodyl (Dulcolax 5 Mg Ec Tab) 10 mg PO DAILY PRN PRN Reason: Constipation Stop: 10/24/17 20:49 [place] Oil/[place] Balsam/Trypsin (Venelex) 1 appl TP DAILY [facility] Stop: 10/28/17 15:59 Last Admin: 09/01/17 11:34 Dose: 1 appl Donepezil HCl (Aricept) 5 mg PO DAILY [facility] Stop: 10/25/17 08:59 Last Admin: 09/01/17 09:02 Dose: 5 mg Ergocalciferol (Vitamin D) 50,000 iu PO QWEEK [facility] Stop: 10/26/17 08:59 Last Admin: 08/27/17 12:17 Dose: Not Given Famotidine (Pepcid) 20 mg PO DAILY [facility] Stop: 10/25/17 08:59 Last Admin: 09/01/17 09:06 Dose: 20 mg Lactulose (Cephulac) 10 gm PO BID [facility] Stop: 10/25/17 08:59 Last Admin: 09/01/17 09:01 Dose: 10 gm Magnesium Hydroxide (Milk Of Magnesia) 30 ml PO HS PRN PRN Reason: Constipation Megestrol Acetate (Megace) 400 mg PO DAILY [facility] Stop: 10/25/17 08:59 Last Admin: 09/01/17 09:05 Dose: 400 mg Metformin HCl (Glucophage) 500 mg PO DAILY [facility] Stop: 10/25/17 08:59 Last Admin: 09/01/17 09:04 Dose: 500 mg Multivitamins/Vitamin C (Theragran) 1 tab PO DAILY [facility] Stop: 10/25/17 08:59 Last Admin: 09/01/17 09:05 Dose: 1 tab Oxycodone HCl (Oxycodone Ir) 2.5 mg PO Q6H PRN PRN Reason: Pain (Severe) Stop: 10/25/17 07:29 Last Admin: 09/01/17 09:03 Dose: 2.5 mg Quetiapine Fumarate (Seroquel) 100 mg PO TID [facility] Stop: 10/31/17 14:29 Senna (Senna) 8.6 mg PO BID PRN PRN Reason: Constipation Stop: 10/24/17 20:49 Sodium Phosphate (Fleet Enema) 135 ml RC DAILY PRN PRN Reason: NO BM IN THREE DAYS Stop: 10/24/17 20:49 Last Admin: 08/27/17 10:39 Dose: 135 ml Tramadol HCl (Ultram) 50 mg PO Q6H PRN PRN Reason: MODERATE PAIN Stop: 10/24/17 20:49 Last Admin: 08/31/17 00:04 Dose: 50 mg General: demented HEENT: NC/AT, PERRLA, EOMI, anicteric sclerae, throat clear Neck: Supple, No JVD, No thyromegaly, +2 carotid pulse wo bruit, No LAD, + JVD Lungs: CTAB Cardiovascular: RRR, Normal S1, Normal S2, without murmur Abdomen: non-tender, non-distended Extremities: clear Neurological: no change - Procedures Procedures: Procedures Procedure Code Date EXCIS KNEE SEMILUN CARTL 80.6 02/12/04 INJECT/INFUSE NEC 99.29 10/09/07 KNEE ARTHROSCOPY/SURGERY 78300 02/12/04 KNEE ARTHROSCOPY/SURGERY 06056 02/12/04 OTHER REPAIR OF KNEE 81.47 02/12/04 THER/PROPH/DIAG INJ, IV PUSH 52575 10/09/07 TX/PRO/DX INJ NEW DRUG ADDON 75929 10/09/07 Internal Medicine Assmt/Plan - Assessment Assessment: 1.DM. 2.ANEMIA. 3.DEMENTIA. - Plan Plan: CONTINUE ON CURRENT MEDICATION AND DIET. Nutritional Asmnt/Malnutr-PDOC - Dietary Evaluation Malnutrition Findings (Please click <Entered> for more info): Nutritional Asmnt/Malnutrition Start: 09/01/17 17: 04 Text: Status: Complete Freq: Protocol: Document 09/01/17 17:07 LCHENG (Rec: 09/01/17 17:11 LCALONAG [email or web address]) Nutritional Asmnt/Malnutrition Patient General Information Nutritional Screening Low Risk Diagnosis psychosis Pertinent Medical Hx/Surgical Hx DM, dementia, HTN, CAD, CHF, CVA, TIA Subjective Information Per EMR, PO intake 25-75. Per [employer]IST, pt needs assist with feeding, consumed 100% of dinner last night and breakfast this morning. Current Diet Order/ Nutrition Support pureed, CCHO 60gm, lactose intolerant. boost glucose control Pertinent Medications vit D, pepcid, megace, glucophage, theragran, seroquel, senna Pertinent Labs 08/27 na 134, glucose 224, POC 160-243 Nutritional Hx/Data Height 1.55 m Height (Calculated Centimeters) 154.9 Current Weight (lbs) 52.163 kg Weight (Calculated Kilograms) 52.2 Weight (Calculated Grams) 96415.1 [place] Body Weight 105 Body Mass Index (BMI) 21.7 Weight Status Approriate GI Symptoms GI Symptoms None Last BM 08/28 Difficult in: None Skin Integrity/Comment: itnact Current %PO Good (75-100%) Estimated Nutritional Goals BEE in Kcals: Using Current wt Calories/Kcals/Kg 25-30 Kcals Calculated 3505-2464 Protein: Using Current wt Protein g/k-1.2 Protein Calculated 52-62 Fluid: ml 1300-1560ml (1ml/kcal) Nutritional Problem 1. Problem Problem altered nutrition related labs Etiology hx of DM Signs/Symptoms: glucose 224, POC 160-243 Malnutrition Alert Is there a minimum of two criteria No selected? Query Text:Check all the applicable criteria. A minimum of two criteria are recommended for diagnosis of either severe or non-severe malnutrition. Malnutrition Related to Morbid Obesity Malnutrition related to morbid obesity No Intervention/Recommendation Comments 1. Continue with [facility] pureed diet as ordered. MD to adjust insulin for optimal glycemic control. 2. Monitor PO intake, wt, labs and skin integrity 3. F/U as low risk in 7 days, 09/08, PO check 09/05 Expected Outcomes/Goals Expected Outcomes/Goals 1. PO intake to meet at least 75% of nutritional needs. 2. Wt stability, skin to remain intact, labs to approach WNL.
[2017-09-02] MEDS: Multivitamin Tab PO SCH (10:00)
[2017-09-02] MEDS: Hydrogel 3 oz Tube TP SCH (10:00)
[2017-09-02] MEDS: Lactulose 10 Gm/15 mL 30mL UDC PO SCH ×2 (10:00→17:07)
[2017-09-02] MEDS: Venelex 60gm Tube TP SCH (10:00)
--- NOTE | 2017-09-02 15:25 | Internal Medicine Prog Note ---
Internal Medicine Subjective - Subjective Service Date: 09/02/17 Patient seen and examined:: with staff (she is not coherent) Patient is:: awake, non-verbal, in bed, confused Per staff patient has:: no adverse event Internal Medicine Objective - Results Result Diagrams: 08/27/17 09:25 08/27/17 09:25 Recent Labs: Laboratory Last Values WBC 8.5 Th/cmm (4.8-10.8) 08/27/17 09:25 RBC 3.94 Mil/cmm (3.80-5.20) 08/27/17 09:25 Hgb 12.6 gm/dL (12-16) 08/27/17 09:25 Hct 37.4 % (41.0-60) L 08/27/17 09:25 MCV 95.1 fl (81-100) 08/27/17 09:25 MCH 32.1 pg (27.0-31.0) H 08/27/17 09:25 MCHC Differential 33.8 pg (28.0-36.0) 08/27/17 09:25 RDW 13.6 % (11.5-20.0) 08/27/17 09:25 Plt Count 408 Th/cmm (150-400) H 08/27/17 09:25 MPV 7.3 fl 08/27/17 09:25 Neutrophils % 57.1 % (40.0-80.0) 08/27/17 09:25 Lymphocytes % 33.6 % (20.0-50.0) 08/27/17 09:25 Monocytes % 6.9 % (2.0-10.0) 08/27/17 09:25 Eosinophils % 1.7 % (0.0-5.0) 08/27/17 09:25 Basophils % 0.7 % (0.0-2.0) 08/27/17 09:25 Sodium 134 mEq/L (136-145) L 08/27/17 09:25 Potassium 3.9 mEq/L (3.5-5.1) 08/27/17 09:25 Chloride 102 mEq/L (98-107) 08/27/17 09:25 Carbon Dioxide 23.3 mEq/L (21.0-31.0) 08/27/17 09:25 Anion Gap 12.6 (7.0-16.0) 08/27/17 09:25 BUN 22 mg/dL (7-25) 08/27/17 09:25 Creatinine 0.9 mg/dL (0.6-1.2) 08/27/17 09:25 Est GFR ( Amer) TNP 08/27/17 09:25 Est GFR (Non-Af Amer) TNP 08/27/17 09:25 BUN/Creatinine Ratio 24.4 08/27/17 09:25 Glucose 224 mg/dL (70-105) H 08/27/17 09:25 POC Glucose 160 MG/DL (70 - 105) H 08/31/17 16:39 Hemoglobin A1c % 6.2 % (4.0-6.0) H 08/25/17 17:56 Whole Bld Lactic Acid 1.57 mmol/L (0.60-1.99) 08/25/17 17:56 Calcium 10.1 mg/dL (8.6-10.3) 08/27/17 09:25 Total Bilirubin 0.3 mg/dL (0.3-1.0) 08/25/17 17:56 AST 15 U/L (13-39) 08/25/17 17:56 ALT 18 U/L (7-52) 08/25/17 17:56 Alkaline Phosphatase 62 U/L (34-104) 08/25/17 17:56 Total Protein 6.7 gm/dL (6.0-8.3) 08/25/17 17:56 Albumin 3.6 gm/dL (3.7-5.3) L 08/25/17 17:56 Globulin 3.1 gm/dL 08/25/17 17:56 Albumin/Globulin Ratio 1.2 (1.0-1.8) 08/25/17 17:56 Urine Source CATH 08/27/17 14:50 Urine Color YELLOW 08/27/17 14:50 Urine Clarity CLEAR (CLEAR) 08/27/17 14:50 Urine pH 5.5 (4.6 - 8.0) 08/27/17 14:50 Ur Specific [place] >= 1.030 (1.005-1.030) 08/27/17 14:50 Urine Protein NEGATIVE mg/dL (NEGATIVE) 08/27/17 14:50 Urine Glucose (UA) NEGATIVE mg/dL (NEGATIVE) 08/27/17 14:50 Urine Ketones NEGATIVE mg/dL (NEGATIVE) 08/27/17 14:50 Urine Blood NEGATIVE (NEGATIVE) 08/27/17 14:50 Urine Nitrate NEGATIVE (NEGATIVE) 08/27/17 14:50 Urine Bilirubin NEGATIVE (NEGATIVE) 08/27/17 14:50 Urine Urobilinogen 0.2 E.U./dL (0.2 - 1.0) 08/27/17 14:50 Ur Leukocyte Esterase NEGATIVE (NEGATIVE) 08/27/17 14:50 Urine RBC 0-2 /hpf (0-5) 08/27/17 14:50 Urine WBC 2-5 /hpf (0-5) 08/27/17 14:50 Ur Epithelial Cells FEW /lpf (FEW) 08/27/17 14:50 Amorphous Sediment MODERATE URATES (NONE SEEN) 08/27/17 14:50 Urine Bacteria MODERATE /hpf (NONE SEEN) H 08/27/17 14:50 - Physical Exam Vitals and I&O: Vital Signs Temp 97.9 F 09/01/17 20:26 Pulse 102 09/01/17 20:26 Resp 20 09/01/17 20:26 BP 122/69 09/01/17 20:26 Pulse Ox 97 09/01/17 20:26 Intake & Output 09/01/17 09/02/17 09/02/17 18:59 06:59 18:59 Intake Total 960 120 Balance 960 120 Intake: Oral 960 120 Other: # Voids 2 1 Active Medications: Current Medications Acetaminophen (Tylenol) 650 mg PO Q4H PRN PRN Reason: Mild Pain / Temp above 100 Stop: 10/24/17 20:44 Last Admin: 08/30/17 05:41 Dose: 650 mg Al Hydrox/Mg Hydrox/Simethicone (Maalox) 30 ml PO Q4H PRN PRN Reason: GI DISTRESS Stop: 10/24/17 20:44 Bandage/Support Products (Hydrogel) 1 appl TP DAILY JIL Stop: 10/25/17 08:59 Last Admin: 09/02/17 10:00 Dose: 1 appl Bisacodyl (Dulcolax 5 Mg Ec Tab) 10 mg PO DAILY PRN PRN Reason: Constipation Stop: 10/24/17 20:49 [place] Oil/[place] Balsam/Trypsin (Venelex) 1 appl TP DAILY [facility] Stop: 10/28/17 15:59 Last Admin: 09/02/17 10:00 Dose: Not Given Donepezil HCl (Aricept) 5 mg PO DAILY [facility] Stop: 10/25/17 08:59 Last Admin: 09/02/17 10:00 Dose: 5 mg Ergocalciferol (Vitamin D) 50,000 iu PO QWEEK [facility] Stop: 10/26/17 08:59 Last Admin: 08/27/17 12:17 Dose: Not Given Famotidine (Pepcid) 20 mg PO DAILY [facility] Stop: 10/25/17 08:59 Last Admin: 09/02/17 10:00 Dose: 20 mg Lactulose (Cephulac) 10 gm PO BID [facility] Stop: 10/25/17 08:59 Last Admin: 09/02/17 10:00 Dose: 10 gm Magnesium Hydroxide (Milk Of Magnesia) 30 ml PO HS PRN PRN Reason: Constipation Megestrol Acetate (Megace) 400 mg PO DAILY [facility] Stop: 10/25/17 08:59 Last Admin: 09/02/17 10:00 Dose: 400 mg Metformin HCl (Glucophage) 500 mg PO DAILY [facility] Stop: 10/25/17 08:59 Last Admin: 09/02/17 10:00 Dose: 500 mg Multivitamins/Vitamin C (Theragran) 1 tab PO DAILY [facility] Stop: 10/25/17 08:59 Last Admin: 09/02/17 10:00 Dose: 1 tab Oxycodone HCl (Oxycodone Ir) 2.5 mg PO Q6H PRN PRN Reason: Pain (Severe) Stop: 10/25/17 07:29 Last Admin: 09/01/17 09:03 Dose: 2.5 mg Quetiapine Fumarate (Seroquel) 100 mg PO TID [facility] Stop: 10/31/17 14:29 Last Admin: 09/02/17 14:39 Dose: 100 mg Senna (Senna) 8.6 mg PO BID PRN PRN Reason: Constipation Stop: 10/24/17 20:49 Sodium Phosphate (Fleet Enema) 135 ml RC DAILY PRN PRN Reason: NO BM IN THREE DAYS Stop: 10/24/17 20:49 Last Admin: 08/27/17 10:39 Dose: 135 ml Tramadol HCl (Ultram) 50 mg PO Q6H PRN PRN Reason: MODERATE PAIN Stop: 10/24/17 20:49 Last Admin: 08/31/17 00:04 Dose: 50 mg General: demented HEENT: NC/AT, PERRLA, EOMI, anicteric sclerae, throat clear Neck: Supple, No JVD, No thyromegaly, +2 carotid pulse wo bruit, No LAD, + JVD Lungs: CTAB Cardiovascular: RRR, Normal S1, Normal S2, without murmur Abdomen: non-tender, non-distended Extremities: clear Neurological: no change - Procedures Procedures: Procedures Procedure Code Date EXCIS KNEE SEMILUN CARTL 80.6 02/12/04 INJECT/INFUSE NEC 99.29 10/09/07 KNEE ARTHROSCOPY/SURGERY 64286 02/12/04 KNEE ARTHROSCOPY/SURGERY 91617 02/12/04 OTHER REPAIR OF KNEE 81.47 02/12/04 THER/PROPH/DIAG INJ, IV PUSH 69870 10/09/07 TX/PRO/DX INJ NEW DRUG ADDON 31583 10/09/07 Internal Medicine Assmt/Plan - Assessment Assessment: 1.DM. 2.ANEMIA. 3.DEMENTIA. - Plan Plan: CONTINUE ON CURRENT MEDICATION AND DIET. Nutritional Asmnt/Malnutr-PDOC - Dietary Evaluation Malnutrition Findings (Please click <Entered> for more info): Nutritional Asmnt/Malnutrition Start: 09/01/17 17: 04 Text: Status: Complete Freq: Protocol: Document 09/01/17 17:07 LCALONAG (Rec: 09/01/17 17:11 ALONA [email or web address]) Nutritional Asmnt/Malnutrition Patient General Information Nutritional Screening Low Risk Diagnosis psychosis Pertinent Medical Hx/Surgical Hx DM, dementia, HTN, CAD, CHF, CVA, TIA Subjective Information Per EMR, PO intake 25-75. Per BOX PERSON, pt needs assist with feeding, consumed 100% of dinner last night and breakfast this morning. Current Diet Order/ Nutrition Support pureed, CCHO 60gm, lactose intolerant. boost glucose control Pertinent Medications vit D, pepcid, megace, glucophage, theragran, seroquel, senna Pertinent Labs 08/27 na 134, glucose 224, POC 160-243 Nutritional Hx/Data Height 1.55 m Height (Calculated Centimeters) 154.9 Current Weight (lbs) 52.163 kg Weight (Calculated Kilograms) 52.2 Weight (Calculated Grams) 75780.1 [place] Body Weight 105 Body Mass Index (BMI) 21.7 Weight Status Approriate GI Symptoms GI Symptoms None Last BM 08/28 Difficult in: None Skin Integrity/Comment: itnact Current %PO Good (75-100%) Estimated Nutritional Goals BEE in Kcals: Using Current wt Calories/Kcals/Kg 25-30 Kcals Calculated 4576-6152 Protein: Using Current wt Protein g/k-1.2 Protein Calculated 52-62 Fluid: ml 1300-1560ml (1ml/kcal) Nutritional Problem 1. Problem Problem altered nutrition related labs Etiology hx of DM Signs/Symptoms: glucose 224, POC 160-243 Malnutrition Alert Is there a minimum of two criteria No selected? Query Text:Check all the applicable criteria. A minimum of two criteria are recommended for diagnosis of either severe or non-severe malnutrition. Malnutrition Related to Morbid Obesity Malnutrition related to morbid obesity No Intervention/Recommendation Comments 1. Continue with [facility] pureed diet as ordered. MD to adjust insulin for optimal glycemic control. 2. Monitor PO intake, wt, labs and skin integrity 3. F/U as low risk in 7 days, 09/08, PO check 09/05 Expected Outcomes/Goals Expected Outcomes/Goals 1. PO intake to meet at least 75% of nutritional needs. 2. Wt stability, skin to remain intact, labs to approach WNL.
--- NOTE | 2017-09-02 18:42 | Progress Notes ---
DATE: 09/02/2017 The patient in the hospital due to agitation and psychotic behaviors, originally admitted in late August 2017 to the hospital. The patient was noted to be agitated, upset. Also, labile, crying episodes. Dr. Kearns seeing the patient in the past few days, noting she remained symptomatic, agitated, noted to be confused. On [id number], the patient is confused, disoriented, still with some screaming episodes. Medications were noted including dosages and frequencies. ASSESSMENT: The patient remains symptomatic, confused, still with behavioral disturbances, impulsive and unpredictable. PLAN: We will continue to monitor. Continue medications including Seroquel, Aricept. We will monitor and follow up. The patient is not safe for a lower level of care, not stable at this time. [facility]# [id number]
[2017-09-03] MEDS: Venelex 60gm Tube TP SCH (09:13)
[2017-09-03] MEDS: Hydrogel 3 oz Tube TP SCH (09:13)
[2017-09-03] MEDS: Multivitamin Tab PO SCH (09:15)
[2017-09-03] MEDS: Lactulose 10 Gm/15 mL 30mL UDC PO SCH ×2 (09:15→16:38)
[2017-09-03] MEDS: oxyCODONE 5 mg IR Tab PO PRN ×2 (09:58→16:45)
--- NOTE | 2017-09-03 10:19 | Progress Notes ---
DATE: 09/03/2017 SUBJECTIVE: The patient in the hospital, agitation and psychotic behaviors, still sometimes labile, upset. On [id number], the patient remains disoriented, not saying much to me today of anything. Staff noting she remains selectively mute, poorly oriented, a lot of confusion noted, forgetfulness. ASSESSMENT: The patient remains symptomatic, still confused, sometimes anxious, labile. Medications were noted. She is calm on my exam today. We will continue to monitor. Medications were noted including Aricept and Seroquel. No overt side effects. JOB# [id number]
--- NOTE | 2017-09-03 17:23 | Internal Medicine Prog Note ---
Internal Medicine Subjective - Subjective Service Date: 09/03/17 Patient seen and examined:: without staff Patient is:: awake, non-verbal, in bed, confused Per staff patient has:: no adverse event Internal Medicine Objective - Results Result Diagrams: 08/27/17 09:25 08/27/17 09:25 Recent Labs: Laboratory Last Values WBC 8.5 Th/cmm (4.8-10.8) 08/27/17 09:25 RBC 3.94 Mil/cmm (3.80-5.20) 08/27/17 09:25 Hgb 12.6 gm/dL (12-16) 08/27/17 09:25 Hct 37.4 % (41.0-60) L 08/27/17 09:25 MCV 95.1 fl (81-100) 08/27/17 09:25 MCH 32.1 pg (27.0-31.0) H 08/27/17 09:25 MCHC Differential 33.8 pg (28.0-36.0) 08/27/17 09:25 RDW 13.6 % (11.5-20.0) 08/27/17 09:25 Plt Count 408 Th/cmm (150-400) H 08/27/17 09:25 MPV 7.3 fl 08/27/17 09:25 Neutrophils % 57.1 % (40.0-80.0) 08/27/17 09:25 Lymphocytes % 33.6 % (20.0-50.0) 08/27/17 09:25 Monocytes % 6.9 % (2.0-10.0) 08/27/17 09:25 Eosinophils % 1.7 % (0.0-5.0) 08/27/17 09:25 Basophils % 0.7 % (0.0-2.0) 08/27/17 09:25 Sodium 134 mEq/L (136-145) L 08/27/17 09:25 Potassium 3.9 mEq/L (3.5-5.1) 08/27/17 09:25 Chloride 102 mEq/L (98-107) 08/27/17 09:25 Carbon Dioxide 23.3 mEq/L (21.0-31.0) 08/27/17 09:25 Anion Gap 12.6 (7.0-16.0) 05/27/18 09:25 BUN 22 mg/dL (7-25) 08/27/17 09:25 Creatinine 0.9 mg/dL (0.6-1.2) 08/27/17 09:25 Est GFR ( Amer) TNP 08/27/17 09:25 Est GFR (Non-Af Amer) TNP 08/27/17 09:25 BUN/Creatinine Ratio 24.4 08/27/17 09:25 Glucose 224 mg/dL (70-105) H 08/27/17 09:25 POC Glucose 160 MG/DL (70 - 105) H 08/31/17 16:39 Hemoglobin A1c % 6.2 % (4.0-6.0) H 08/25/17 17:56 Whole Bld Lactic Acid 1.57 mmol/L (0.60-1.99) 08/25/17 17:56 Calcium 10.1 mg/dL (8.6-10.3) 08/27/17 09:25 Total Bilirubin 0.3 mg/dL (0.3-1.0) 08/25/17 17:56 AST 15 U/L (13-39) 08/25/17 17:56 ALT 18 U/L (7-52) 08/25/17 17:56 Alkaline Phosphatase 62 U/L (34-104) 08/25/17 17:56 Total Protein 6.7 gm/dL (6.0-8.3) 08/25/17 17:56 Albumin 3.6 gm/dL (3.7-5.3) L 08/25/17 17:56 Globulin 3.1 gm/dL 08/25/17 17:56 Albumin/Globulin Ratio 1.2 (1.0-1.8) 08/25/17 17:56 Urine Source CATH 08/27/17 14:50 Urine Color YELLOW 08/27/17 14:50 Urine Clarity CLEAR (CLEAR) 08/27/17 14:50 Urine pH 5.5 (4.6 - 8.0) 08/27/17 14:50 Ur Specific [place] >= 1.030 (1.005-1.030) 08/27/17 14:50 Urine Protein NEGATIVE mg/dL (NEGATIVE) 08/27/17 14:50 Urine Glucose (UA) NEGATIVE mg/dL (NEGATIVE) 08/27/17 14:50 Urine Ketones NEGATIVE mg/dL (NEGATIVE) 08/27/17 14:50 Urine Blood NEGATIVE (NEGATIVE) 08/27/17 14:50 Urine Nitrate NEGATIVE (NEGATIVE) 08/27/17 14:50 Urine Bilirubin NEGATIVE (NEGATIVE) 08/27/17 14:50 Urine Urobilinogen 0.2 E.U./dL (0.2 - 1.0) 08/27/17 14:50 Ur Leukocyte Esterase NEGATIVE (NEGATIVE) 08/27/17 14:50 Urine RBC 0-2 /hpf (0-5) 08/27/17 14:50 Urine WBC 2-5 /hpf (0-5) 08/27/17 14:50 Ur Epithelial Cells FEW /lpf (FEW) 08/27/17 14:50 Amorphous Sediment MODERATE URATES (NONE SEEN) 08/27/17 14:50 Urine Bacteria MODERATE /hpf (NONE SEEN) H 08/27/17 14:50 - Physical Exam Vitals and I&O: Vital Signs Temp 98.0 F 09/03/17 14:00 Pulse 112 09/03/17 14:00 Resp 20 09/03/17 14:00 BP 127/72 09/03/17 14:00 Pulse Ox 97 09/03/17 14:00 Intake & Output 09/02/17 09/03/17 09/03/17 18:59 06:59 18:59 Intake Total 900 120 Balance 900 120 Intake: Oral 900 120 Other: # Voids 2 3 Active Medications: Current Medications Acetaminophen (Tylenol) 650 mg PO Q4H PRN PRN Reason: Mild Pain / Temp above 100 Stop: 10/24/17 20:44 Last Admin: 08/30/17 05:41 Dose: 650 mg Al Hydrox/Mg Hydrox/Simethicone (Maalox) 30 ml PO Q4H PRN PRN Reason: GI DISTRESS Stop: 10/24/17 20:44 Bandage/Support Products (Hydrogel) 1 appl TP DAILY [facility] Stop: 10/25/17 08:59 Last Admin: 09/03/17 09:13 Dose: 1 appl Bisacodyl (Dulcolax 5 Mg Ec Tab) 10 mg PO DAILY PRN PRN Reason: Constipation Stop: 10/24/17 20:49 [place] Oil/[place] Balsam/Trypsin (Venelex) 1 appl TP DAILY [facility] Stop: 10/28/17 15:59 Last Admin: 09/03/17 09:13 Dose: Not Given Donepezil HCl (Aricept) 5 mg PO DAILY [facility] Stop: 10/25/17 08:59 Last Admin: 09/03/17 09:14 Dose: 5 mg Ergocalciferol (Vitamin D) 50,000 iu PO QWEEK [facility] Stop: 10/26/17 08:59 Last Admin: 09/03/17 09:14 Dose: 50,000 iu Famotidine (Pepcid) 20 mg PO DAILY [facility] Stop: 10/25/17 08:59 Last Admin: 09/03/17 09:14 Dose: 20 mg Lactulose (Cephulac) 10 gm PO BID [facility] Stop: 10/25/17 08:59 Last Admin: 09/03/17 16:38 Dose: Not Given Magnesium Hydroxide (Milk Of Magnesia) 30 ml PO HS PRN PRN Reason: Constipation Megestrol Acetate (Megace) 400 mg PO DAILY [facility] Stop: 10/25/17 08:59 Last Admin: 09/03/17 09:16 Dose: 400 mg Metformin HCl (Glucophage) 500 mg PO DAILY [facility] Stop: 10/25/17 08:59 Last Admin: 09/03/17 09:16 Dose: 500 mg Multivitamins/Vitamin C (Theragran) 1 tab PO DAILY [facility] Stop: 10/25/17 08:59 Last Admin: 09/03/17 09:15 Dose: 1 tab Oxycodone HCl (Oxycodone Ir) 2.5 mg PO Q6H PRN PRN Reason: Pain (Severe) Stop: 10/25/17 07:29 Last Admin: 09/03/17 16:45 Dose: 2.5 mg Quetiapine Fumarate (Seroquel) 100 mg PO TID [facility] Stop: 10/31/17 14:29 Last Admin: 09/03/17 14:07 Dose: 100 mg Senna (Senna) 8.6 mg PO BID PRN PRN Reason: Constipation Stop: 10/24/17 20:49 Sodium Phosphate (Fleet Enema) 135 ml RC DAILY PRN PRN Reason: NO BM IN THREE DAYS Stop: 10/24/17 20:49 Last Admin: 08/27/17 10:39 Dose: 135 ml Tramadol HCl (Ultram) 50 mg PO Q6H PRN PRN Reason: MODERATE PAIN Stop: 10/24/17 20:49 Last Admin: 08/31/17 00:04 Dose: 50 mg General: demented HEENT: NC/AT, PERRLA, EOMI, anicteric sclerae, throat clear Neck: Supple, No JVD, No thyromegaly, +2 carotid pulse wo bruit, No LAD, + JVD Lungs: CTAB Cardiovascular: RRR, Normal S1, Normal S2, without murmur Abdomen: non-tender, non-distended Extremities: clear Neurological: no change - Procedures Procedures: Procedures Procedure Code Date EXCIS KNEE SEMILUN CARTL 80.6 02/12/04 INJECT/INFUSE NEC 99.29 10/09/07 KNEE ARTHROSCOPY/SURGERY 80308 02/12/04 KNEE ARTHROSCOPY/SURGERY 51257 02/12/04 OTHER REPAIR OF KNEE 81.47 02/12/04 THER/PROPH/DIAG INJ, IV PUSH 31069 10/09/07 TX/PRO/DX INJ NEW DRUG ADDON 25588 10/09/07 Internal Medicine Assmt/Plan - Assessment Assessment: 1.DM. 2.ANEMIA. 3.DEMENTIA. - Plan Plan: CONTINUE ON CURRENT MEDICATION AND DIET. Nutritional Asmnt/Malnutr-PDOC - Dietary Evaluation Malnutrition Findings (Please click <Entered> for more info): Nutritional Asmnt/Malnutrition Start: 09/01/17 17: 04 Text: Status: Complete Freq: Protocol: Document 09/01/17 17:07 DESMOND (Rec: 09/01/17 17:11 ALONA [email or web address]) Nutritional Asmnt/Malnutrition Patient General Information Nutritional Screening Low Risk Diagnosis psychosis Pertinent Medical Hx/Surgical Hx DM, dementia, HTN, CAD, CHF, CVA, TIA Subjective Information Per EMR, PO intake 25-75. 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 Current Diet Order/ Nutrition Support pureed, CCHO 60gm, lactose intolerant. boost glucose control Pertinent Medications vit D, pepcid, megace, glucophage, theragran, seroquel, senna Pertinent Labs 08/27 na 134, glucose 224, POC 160-243 Nutritional Hx/Data Height 1.55 m Height (Calculated Centimeters) 154.9 Current Weight (lbs) 52.163 kg Weight (Calculated Kilograms) 52.2 Weight (Calculated Grams) 73963.1 [place] Body Weight 105 Body Mass Index (BMI) 21.7 Weight Status Approriate GI Symptoms GI Symptoms None Last BM 08/28 Difficult in: None Skin Integrity/Comment: itnact Current %PO Good (75-100%) Estimated Nutritional Goals BEE in Kcals: Using Current wt Calories/Kcals/Kg 25-30 Kcals Calculated 5959-9469 Protein: Using Current wt Protein g/k-1.2 Protein Calculated 52-62 Fluid: ml 1300-1560ml (1ml/kcal) Nutritional Problem 1. Problem Problem altered nutrition related labs Etiology hx of DM Signs/Symptoms: glucose 224, POC 160-243 Malnutrition Alert Is there a minimum of two criteria No selected? Query Text:Check all the applicable criteria. A minimum of two criteria are recommended for diagnosis of either severe or non-severe malnutrition. Malnutrition Related to Morbid Obesity Malnutrition related to morbid obesity No Intervention/Recommendation Comments 1. Continue with [facility] pureed diet as ordered. MD to adjust insulin for optimal glycemic control. 2. Monitor PO intake, wt, labs and skin integrity 3. F/U as low risk in 7 days, 09/08, PO check 09/05 Expected Outcomes/Goals Expected Outcomes/Goals 1. PO intake to meet at least 75% of nutritional needs. 2. Wt stability, skin to remain intact, labs to approach WNL.
[2017-09-04] MEDS: Lactulose 10 Gm/15 mL 30mL UDC PO SCH ×2 (09:30→17:08)
[2017-09-04] MEDS: Venelex 60gm Tube TP SCH (09:30)
[2017-09-04] MEDS: Hydrogel 3 oz Tube TP SCH (09:30)
[2017-09-04] MEDS: Multivitamin Tab PO SCH ×2 (09:30→12:35)
[2017-09-04] MEDS: oxyCODONE 5 mg IR Tab PO PRN (09:30)
--- NOTE | 2017-09-04 23:30 | Internal Medicine Prog Note ---
Internal Medicine Subjective - Subjective Service Date: 09/04/17 Patient seen and examined:: without staff Patient is:: awake, non-verbal, in bed, confused Per staff patient has:: no adverse event Internal Medicine Objective - Results Result Diagrams: 08/27/17 09:25 08/27/17 09:25 Recent Labs: Laboratory Last Values WBC 8.5 Th/cmm (4.8-10.8) 08/27/17 09:25 RBC 3.94 Mil/cmm (3.80-5.20) 08/27/17 09:25 Hgb 12.6 gm/dL (12-16) 08/27/17 09:25 Hct 37.4 % (41.0-60) L 08/27/17 09:25 MCV 95.1 fl (81-100) 08/27/17 09:25 MCH 32.1 pg (27.0-31.0) H 08/27/17 09:25 MCHC Differential 33.8 pg (28.0-36.0) 08/27/17 09:25 RDW 13.6 % (11.5-20.0) 08/27/17 09:25 Plt Count 408 Th/cmm (150-400) H 08/27/17 09:25 MPV 7.3 fl 08/27/17 09:25 Neutrophils % 57.1 % (40.0-80.0) 08/27/17 09:25 Lymphocytes % 33.6 % (20.0-50.0) 08/27/17 09:25 Monocytes % 6.9 % (2.0-10.0) 08/27/17 09:25 Eosinophils % 1.7 % (0.0-5.0) 08/27/17 09:25 Basophils % 0.7 % (0.0-2.0) 08/27/17 09:25 Sodium 134 mEq/L (136-145) L 08/27/17 09:25 Potassium 3.9 mEq/L (3.5-5.1) 08/27/17 09:25 Chloride 102 mEq/L (98-107) 08/27/17 09:25 Carbon Dioxide 23.3 mEq/L (21.0-31.0) 08/27/17 09:25 Anion Gap 12.6 (7.0-16.0) 05/27/18 09:25 BUN 22 mg/dL (7-25) 08/27/17 09:25 Creatinine 0.9 mg/dL (0.6-1.2) 08/27/17 09:25 Est GFR ( Amer) TNP 08/27/17 09:25 Est GFR (Non-Af Amer) TNP 08/27/17 09:25 BUN/Creatinine Ratio 24.4 08/27/17 09:25 Glucose 224 mg/dL (70-105) H 08/27/17 09:25 POC Glucose 160 MG/DL (70 - 105) H 08/31/17 16:39 Hemoglobin A1c % 6.2 % (4.0-6.0) H 08/25/17 17:56 Whole Bld Lactic Acid 1.57 mmol/L (0.60-1.99) 08/25/17 17:56 Calcium 10.1 mg/dL (8.6-10.3) 08/27/17 09:25 Total Bilirubin 0.3 mg/dL (0.3-1.0) 08/25/17 17:56 AST 15 U/L (13-39) 08/25/17 17:56 ALT 18 U/L (7-52) 08/25/17 17:56 Alkaline Phosphatase 62 U/L (34-104) 08/25/17 17:56 Total Protein 6.7 gm/dL (6.0-8.3) 08/25/17 17:56 Albumin 3.6 gm/dL (3.7-5.3) L 08/25/17 17:56 Globulin 3.1 gm/dL 08/25/17 17:56 Albumin/Globulin Ratio 1.2 (1.0-1.8) 08/25/17 17:56 Urine Source CATH 08/27/17 14:50 Urine Color YELLOW 08/27/17 14:50 Urine Clarity CLEAR (CLEAR) 08/27/17 14:50 Urine pH 5.5 (4.6 - 8.0) 08/27/17 14:50 Ur Specific [place] >= 1.030 (1.005-1.030) 08/27/17 14:50 Urine Protein NEGATIVE mg/dL (NEGATIVE) 08/27/17 14:50 Urine Glucose (UA) NEGATIVE mg/dL (NEGATIVE) 08/27/17 14:50 Urine Ketones NEGATIVE mg/dL (NEGATIVE) 08/27/17 14:50 Urine Blood NEGATIVE (NEGATIVE) 08/27/17 14:50 Urine Nitrate NEGATIVE (NEGATIVE) 08/27/17 14:50 Urine Bilirubin NEGATIVE (NEGATIVE) 08/27/17 14:50 Urine Urobilinogen 0.2 E.U./dL (0.2 - 1.0) 08/27/17 14:50 Ur Leukocyte Esterase NEGATIVE (NEGATIVE) 08/27/17 14:50 Urine RBC 0-2 /hpf (0-5) 08/27/17 14:50 Urine WBC 2-5 /hpf (0-5) 08/27/17 14:50 Ur Epithelial Cells FEW /lpf (FEW) 08/27/17 14:50 Amorphous Sediment MODERATE URATES (NONE SEEN) 08/27/17 14:50 Urine Bacteria MODERATE /hpf (NONE SEEN) H 08/27/17 14:50 - Physical Exam Vitals and I&O: Vital Signs Temp 97.8 F 09/04/17 20:21 Pulse 98 09/04/17 20:21 Resp 20 09/04/17 20:21 BP 128/51 09/04/17 20:21 Pulse Ox 97 09/04/17 20:21 Intake & Output 09/04/17 09/04/17 09/05/17 06:59 18:59 06:59 Intake Total 120 250 120 Balance 120 250 120 Intake: Oral 120 250 120 Other: # Voids 3 3 1 # Bowel Movements 0 Stool Characteristics Soft Active Medications: Current Medications Acetaminophen (Tylenol) 650 mg PO Q4H PRN PRN Reason: Mild Pain / Temp above 100 Stop: 10/24/17 20:44 Last Admin: 08/30/17 05:41 Dose: 650 mg Al Hydrox/Mg Hydrox/Simethicone (Maalox) 30 ml PO Q4H PRN PRN Reason: GI DISTRESS Stop: 10/24/17 20:44 Bandage/Support Products (Hydrogel) 1 appl TP DAILY [facility] Stop: 10/25/17 08:59 Last Admin: 09/04/17 09:30 Dose: 1 appl Bisacodyl (Dulcolax 5 Mg Ec Tab) 10 mg PO DAILY PRN PRN Reason: Constipation Stop: 10/24/17 20:49 [place] Oil/[place] Balsam/Trypsin (Venelex) 1 appl TP DAILY [facility] Stop: 10/28/17 15:59 Last Admin: 09/04/17 09:30 Dose: 1 appl Donepezil HCl (Aricept) 5 mg PO DAILY [facility] Stop: 10/25/17 08:59 Last Admin: 09/04/17 09:30 Dose: 5 mg Ergocalciferol (Vitamin D) 50,000 iu PO QWEEK [facility] Stop: 10/26/17 08:59 Last Admin: 09/03/17 09:14 Dose: 50,000 iu Famotidine (Pepcid) 20 mg PO DAILY [facility] Stop: 10/25/17 08:59 Last Admin: 09/04/17 09:30 Dose: 20 mg Lactulose (Cephulac) 10 gm PO BID [facility] Stop: 10/25/17 08:59 Last Admin: 09/04/17 17:08 Dose: 10 gm Magnesium Hydroxide (Milk Of Magnesia) 30 ml PO HS PRN PRN Reason: Constipation Megestrol Acetate (Megace) 400 mg PO DAILY [facility] Stop: 10/25/17 08:59 Last Admin: 09/04/17 09:30 Dose: 400 mg Metformin HCl (Glucophage) 500 mg PO DAILY [facility] Stop: 10/25/17 08:59 Last Admin: 09/04/17 09:30 Dose: Not Given Multivitamins/Vitamin C (Theragran) 1 tab PO DAILY [facility] Stop: 10/25/17 08:59 Last Admin: 09/04/17 12:35 Dose: Not Given Oxycodone HCl (Oxycodone Ir) 2.5 mg PO Q6H PRN PRN Reason: Pain (Severe) Stop: 10/25/17 07:29 Last Admin: 09/04/17 09:30 Dose: 2.5 mg Quetiapine Fumarate (Seroquel) 100 mg PO TID [facility] Stop: 10/31/17 14:29 Last Admin: 09/04/17 20:39 Dose: 100 mg Senna (Senna) 8.6 mg PO BID PRN PRN Reason: Constipation Stop: 10/24/17 20:49 Sodium Phosphate (Fleet Enema) 135 ml RC DAILY PRN PRN Reason: NO BM IN THREE DAYS Stop: 10/24/17 20:49 Last Admin: 08/27/17 10:39 Dose: 135 ml Tramadol HCl (Ultram) 50 mg PO Q6H PRN PRN Reason: MODERATE PAIN Stop: 10/24/17 20:49 Last Admin: 09/04/17 20:39 Dose: 50 mg General: demented HEENT: NC/AT, PERRLA, EOMI, anicteric sclerae, throat clear Neck: Supple, No JVD, No thyromegaly, +2 carotid pulse wo bruit, No LAD, + JVD Lungs: CTAB Cardiovascular: RRR, Normal S1, Normal S2, without murmur Abdomen: non-tender, non-distended Extremities: clear Neurological: no change - Procedures Procedures: Procedures Procedure Code Date EXCIS KNEE SEMILUN CARTL 80.6 02/12/04 INJECT/INFUSE NEC 99.29 10/09/07 KNEE ARTHROSCOPY/SURGERY 13519 02/12/04 KNEE ARTHROSCOPY/SURGERY 49251 02/12/04 OTHER REPAIR OF KNEE 81.47 02/12/04 THER/PROPH/DIAG INJ, IV PUSH 66710 10/09/07 TX/PRO/DX INJ NEW DRUG ADDON 56578 10/09/07 Internal Medicine Assmt/Plan - Assessment Assessment: 1.DM. 2.ANEMIA. 3.DEMENTIA. - Plan Plan: CONTINUE ON CURRENT MEDICATION AND DIET. Nutritional Asmnt/Malnutr-PDOC - Dietary Evaluation Malnutrition Findings (Please click <Entered> for more info): Nutritional Asmnt/Malnutrition Start: 09/01/17 17: 04 Text: Status: Complete Freq: Protocol: Document 09/01/17 17:07 SHAWNG (Rec: 09/01/17 17:11 LCLISA [email or web address]) Nutritional Asmnt/Malnutrition Patient General Information Nutritional Screening Low Risk Diagnosis psychosis Pertinent Medical Hx/Surgical Hx DM, dementia, HTN, CAD, CHF, CVA, TIA Subjective Information Per EMR, PO intake 25-75. 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 Current Diet Order/ Nutrition Support pureed, CCHO 60gm, lactose intolerant. boost glucose control Pertinent Medications vit D, pepcid, megace, glucophage, theragran, seroquel, senna Pertinent Labs 08/27 na 134, glucose 224, POC 160-243 Nutritional Hx/Data Height 1.55 m Height (Calculated Centimeters) 154.9 Current Weight (lbs) 52.163 kg Weight (Calculated Kilograms) 52.2 Weight (Calculated Grams) 43743.1 [place] Body Weight 105 Body Mass Index (BMI) 21.7 Weight Status Approriate GI Symptoms GI Symptoms None Last BM 08/28 Difficult in: None Skin Integrity/Comment: itnact Current %PO Good (75-100%) Estimated Nutritional Goals BEE in Kcals: Using Current wt Calories/Kcals/Kg 25-30 Kcals Calculated 0431-4890 Protein: Using Current wt Protein g/k-1.2 Protein Calculated 52-62 Fluid: ml 1300-1560ml (1ml/kcal) Nutritional Problem 1. Problem Problem altered nutrition related labs Etiology hx of DM Signs/Symptoms: glucose 224, POC 160-243 Malnutrition Alert Is there a minimum of two criteria No selected? Query Text:Check all the applicable criteria. A minimum of two criteria are recommended for diagnosis of either severe or non-severe malnutrition. Malnutrition Related to Morbid Obesity Malnutrition related to morbid obesity No Intervention/Recommendation Comments 1. Continue with [facility] pureed diet as ordered. MD to adjust insulin for optimal glycemic control. 2. Monitor PO intake, wt, labs and skin integrity 3. F/U as low risk in 7 days, 09/08, PO check 09/05 Expected Outcomes/Goals Expected Outcomes/Goals 1. PO intake to meet at least 75% of nutritional needs. 2. Wt stability, skin to remain intact, labs to approach WNL.
[2017-09-05] MEDS: Multivitamin Tab PO SCH (09:27)
[2017-09-05] MEDS: Lactulose 10 Gm/15 mL 30mL UDC PO SCH ×2 (09:28→16:47)
[2017-09-05] MEDS: Venelex 60gm Tube TP SCH (11:12)
[2017-09-05] MEDS: Hydrogel 3 oz Tube TP SCH (11:13)
--- NOTE | 2017-09-05 14:00 | Internal Medicine Prog Note ---
Internal Medicine Subjective - Subjective Service Date: 09/05/17 Patient seen and examined:: with staff Patient is:: awake, non-verbal, in bed, confused Per staff patient has:: no adverse event Internal Medicine Objective - Results Result Diagrams: 08/27/17 09:25 08/27/17 09:25 Recent Labs: Laboratory Last Values WBC 8.5 Th/cmm (4.8-10.8) 08/27/17 09:25 RBC 3.94 Mil/cmm (3.80-5.20) 08/27/17 09:25 Hgb 12.6 gm/dL (12-16) 08/27/17 09:25 Hct 37.4 % (41.0-60) L 08/27/17 09:25 MCV 95.1 fl (81-100) 08/27/17 09:25 MCH 32.1 pg (27.0-31.0) H 08/27/17 09:25 MCHC Differential 33.8 pg (28.0-36.0) 08/27/17 09:25 RDW 13.6 % (11.5-20.0) 08/27/17 09:25 Plt Count 408 Th/cmm (150-400) H 08/27/17 09:25 MPV 7.3 fl 08/27/17 09:25 Neutrophils % 57.1 % (40.0-80.0) 08/27/17 09:25 Lymphocytes % 33.6 % (20.0-50.0) 08/27/17 09:25 Monocytes % 6.9 % (2.0-10.0) 08/27/17 09:25 Eosinophils % 1.7 % (0.0-5.0) 08/27/17 09:25 Basophils % 0.7 % (0.0-2.0) 08/27/17 09:25 Sodium 134 mEq/L (136-145) L 08/27/17 09:25 Potassium 3.9 mEq/L (3.5-5.1) 08/27/17 09:25 Chloride 102 mEq/L (98-107) 08/27/17 09:25 Carbon Dioxide 23.3 mEq/L (21.0-31.0) 08/27/17 09:25 Anion Gap 12.6 (7.0-16.0) 05/27/18 09:25 BUN 22 mg/dL (7-25) 08/27/17 09:25 Creatinine 0.9 mg/dL (0.6-1.2) 08/27/17 09:25 Est GFR ( Amer) TNP 08/27/17 09:25 Est GFR (Non-Af Amer) TNP 08/27/17 09:25 BUN/Creatinine Ratio 24.4 08/27/17 09:25 Glucose 224 mg/dL (70-105) H 08/27/17 09:25 POC Glucose 160 MG/DL (70 - 105) H 08/31/17 16:39 Hemoglobin A1c % 6.2 % (4.0-6.0) H 08/25/17 17:56 Whole Bld Lactic Acid 1.57 mmol/L (0.60-1.99) 08/25/17 17:56 Calcium 10.1 mg/dL (8.6-10.3) 08/27/17 09:25 Total Bilirubin 0.3 mg/dL (0.3-1.0) 08/25/17 17:56 AST 15 U/L (13-39) 08/25/17 17:56 ALT 18 U/L (7-52) 08/25/17 17:56 Alkaline Phosphatase 62 U/L (34-104) 08/25/17 17:56 Total Protein 6.7 gm/dL (6.0-8.3) 08/25/17 17:56 Albumin 3.6 gm/dL (3.7-5.3) L 08/25/17 17:56 Globulin 3.1 gm/dL 08/25/17 17:56 Albumin/Globulin Ratio 1.2 (1.0-1.8) 08/25/17 17:56 Urine Source CATH 08/27/17 14:50 Urine Color YELLOW 08/27/17 14:50 Urine Clarity CLEAR (CLEAR) 08/27/17 14:50 Urine pH 5.5 (4.6 - 8.0) 08/27/17 14:50 Ur Specific [place] >= 1.030 (1.005-1.030) 08/27/17 14:50 Urine Protein NEGATIVE mg/dL (NEGATIVE) 08/27/17 14:50 Urine Glucose (UA) NEGATIVE mg/dL (NEGATIVE) 08/27/17 14:50 Urine Ketones NEGATIVE mg/dL (NEGATIVE) 08/27/17 14:50 Urine Blood NEGATIVE (NEGATIVE) 08/27/17 14:50 Urine Nitrate NEGATIVE (NEGATIVE) 08/27/17 14:50 Urine Bilirubin NEGATIVE (NEGATIVE) 08/27/17 14:50 Urine Urobilinogen 0.2 E.U./dL (0.2 - 1.0) 08/27/17 14:50 Ur Leukocyte Esterase NEGATIVE (NEGATIVE) 08/27/17 14:50 Urine RBC 0-2 /hpf (0-5) 08/27/17 14:50 Urine WBC 2-5 /hpf (0-5) 08/27/17 14:50 Ur Epithelial Cells FEW /lpf (FEW) 08/27/17 14:50 Amorphous Sediment MODERATE URATES (NONE SEEN) 08/27/17 14:50 Urine Bacteria MODERATE /hpf (NONE SEEN) H 08/27/17 14:50 - Physical Exam Vitals and I&O: Vital Signs Temp 97.1 F 09/05/17 06:11 Pulse 90 09/05/17 06:11 Resp 18 09/05/17 06:11 BP 123/67 09/05/17 06:11 Pulse Ox 97 09/05/17 06:11 Intake & Output 09/04/17 09/05/17 09/05/17 18:59 06:59 18:59 Intake Total 250 240 Balance 250 240 Intake: Oral 250 240 Other: # Voids 3 1 # Bowel Movements 0 Stool Characteristics Soft Active Medications: Current Medications Acetaminophen (Tylenol) 650 mg PO Q4H PRN PRN Reason: Mild Pain / Temp above 100 Stop: 10/24/17 20:44 Last Admin: 08/30/17 05:41 Dose: 650 mg Al Hydrox/Mg Hydrox/Simethicone (Maalox) 30 ml PO Q4H PRN PRN Reason: GI DISTRESS Stop: 10/24/17 20:44 Bandage/Support Products (Hydrogel) 1 appl TP DAILY [facility] Stop: 10/25/17 08:59 Last Admin: 09/05/17 11:13 Dose: 1 appl Bisacodyl (Dulcolax 5 Mg Ec Tab) 10 mg PO DAILY PRN PRN Reason: Constipation Stop: 10/24/17 20:49 [place] Oil/Burmese Balsam/Trypsin (Venelex) 1 appl TP DAILY [facility] Stop: 10/28/17 15:59 Last Admin: 09/05/17 11:12 Dose: 1 appl Donepezil HCl (Aricept) 10 mg PO DAILY [facility] Stop: 11/04/17 08:59 Last Admin: 09/05/17 09:25 Dose: 10 mg Ergocalciferol (Vitamin D) 50,000 iu PO QWEEK [facility] Stop: 10/26/17 08:59 Last Admin: 09/03/17 09:14 Dose: 50,000 iu Famotidine (Pepcid) 20 mg PO DAILY [facility] Stop: 10/25/17 08:59 Last Admin: 09/05/17 09:26 Dose: 20 mg Lactulose (Cephulac) 10 gm PO BID [facility] Stop: 10/25/17 08:59 Last Admin: 09/05/17 09:28 Dose: 10 gm Magnesium Hydroxide (Milk Of Magnesia) 30 ml PO HS PRN PRN Reason: Constipation Megestrol Acetate (Megace) 400 mg PO DAILY [facility] Stop: 10/25/17 08:59 Last Admin: 09/05/17 09:28 Dose: 400 mg Metformin HCl (Glucophage) 500 mg PO DAILY [facility] Stop: 10/25/17 08:59 Last Admin: 09/05/17 09:26 Dose: 500 mg Multivitamins/Vitamin C (Theragran) 1 tab PO DAILY [facility] Stop: 10/25/17 08:59 Last Admin: 09/05/17 09:27 Dose: 1 tab Oxycodone HCl (Oxycodone Ir) 2.5 mg PO Q6H PRN PRN Reason: Pain (Severe) Stop: 10/25/17 07:29 Last Admin: 09/04/17 09:30 Dose: 2.5 mg Quetiapine Fumarate (Seroquel) 100 mg PO TID [facility] Stop: 10/31/17 14:29 Last Admin: 09/05/17 13:07 Dose: 100 mg Senna (Senna) 8.6 mg PO BID PRN PRN Reason: Constipation Stop: 10/24/17 20:49 Sodium Phosphate (Fleet Enema) 135 ml RC DAILY PRN PRN Reason: NO BM IN THREE DAYS Stop: 10/24/17 20:49 Last Admin: 08/27/17 10:39 Dose: 135 ml Tramadol HCl (Ultram) 50 mg PO Q6H PRN PRN Reason: MODERATE PAIN Stop: 10/24/17 20:49 Last Admin: 09/05/17 09:27 Dose: 50 mg General: demented HEENT: NC/AT, PERRLA, EOMI, anicteric sclerae, throat clear Neck: Supple, No JVD, No thyromegaly, +2 carotid pulse wo bruit, No LAD, + JVD Lungs: CTAB Cardiovascular: RRR, Normal S1, Normal S2, without murmur Abdomen: non-tender, non-distended Extremities: clear Neurological: no change - Procedures Procedures: Procedures Procedure Code Date EXCIS KNEE SEMILUN CARTL 80.6 02/12/04 INJECT/INFUSE NEC 99.29 10/09/07 KNEE ARTHROSCOPY/SURGERY 61172 02/12/04 KNEE ARTHROSCOPY/SURGERY 00628 02/12/04 OTHER REPAIR OF KNEE 81.47 02/12/04 THER/PROPH/DIAG INJ, IV PUSH 77353 10/09/07 TX/PRO/DX INJ NEW DRUG ADDON 80085 10/09/07 Internal Medicine Assmt/Plan - Assessment Assessment: 1.DM. 2.ANEMIA. 3.DEMENTIA. - Plan Plan: CONTINUE ON CURRENT MEDICATION AND DIET. Nutritional Asmnt/Malnutr-PDOC - Dietary Evaluation Malnutrition Findings (Please click <Entered> for more info): Nutritional Asmnt/Malnutrition Start: 09/01/17 17: 04 Text: Status: Complete Freq: Protocol: Document 09/01/17 17:07 LCALONAG (Rec: 09/01/17 17:11 ALONAG [email or web address]) Nutritional Asmnt/Malnutrition Patient General Information Nutritional Screening Low Risk Diagnosis psychosis Pertinent Medical Hx/Surgical Hx DM, dementia, HTN, CAD, CHF, CVA, TIA Subjective Information Per EMR, PO intake 25-75. Per TRUCK PACKER, pt needs assist with feeding, consumed 100% of dinner last night and breakfast this morning. Current Diet Order/ Nutrition Support pureed, CCHO 60gm, lactose intolerant. boost glucose control Pertinent Medications vit D, pepcid, megace, glucophage, theragran, seroquel, senna Pertinent Labs 08/27 na 134, glucose 224, POC 160-243 Nutritional Hx/Data Height 1.55 m Height (Calculated Centimeters) 154.9 Current Weight (lbs) 52.163 kg Weight (Calculated Kilograms) 52.2 Weight (Calculated Grams) 04747.1 [place] Body Weight 105 Body Mass Index (BMI) 21.7 Weight Status Approriate GI Symptoms GI Symptoms None Last BM 08/28 Difficult in: None Skin Integrity/Comment: itnact Current %PO Good (75-100%) Estimated Nutritional Goals BEE in Kcals: Using Current wt Calories/Kcals/Kg 25-30 Kcals Calculated 5990-9515 Protein: Using Current wt Protein g/k-1.2 Protein Calculated 52-62 Fluid: ml 1300-1560ml (1ml/kcal) Nutritional Problem 1. Problem Problem altered nutrition related labs Etiology hx of DM Signs/Symptoms: glucose 224, POC 160-243 Malnutrition Alert Is there a minimum of two criteria No selected? Query Text:Check all the applicable criteria. A minimum of two criteria are recommended for diagnosis of either severe or non-severe malnutrition. Malnutrition Related to Morbid Obesity Malnutrition related to morbid obesity No Intervention/Recommendation Comments 1. Continue with [facility] pureed diet as ordered. MD to adjust insulin for optimal glycemic control. 2. Monitor PO intake, wt, labs and skin integrity 3. F/U as low risk in 7 days, 09/08, PO check 09/05 Expected Outcomes/Goals Expected Outcomes/Goals 1. PO intake to meet at least 75% of nutritional needs. 2. Wt stability, skin to remain intact, labs to approach WNL.
--- NOTE | 2017-09-05 20:36 | Progress Notes ---
DATE: 09/04/2017 SUBJECTIVE: Chart reviewed and the patient interviewed. Also discussed the patient's condition with the staff and reviewed records and labs. The patient is selectively mute. The patient also is still suspicious and paranoid. The patient also is yelling and screaming for no reason and has difficulty expressing herself or expressing her feelings. The patient also wants to be left alone. The patient is confused and still needs lots of monitoring and lots of redirections. Otherwise, the patient is compliant with taking her medications with no side effects of medications. ASSESSMENT: The patient is still confused and agitated. TREATMENT PLAN: Continue to monitor her behavior and her condition closely. Also, continue to follow up with treatment plans and discharge plans. [facility]# [id number]
--- NOTE | 2017-09-06 01:56 | Progress Notes ---
DATE: 09/05/2017 SUBJECTIVE: Chart reviewed and the patient interviewed. Also discussed the patient's condition with the staff and reviewed the records and labs. The patient is still selectively mute and she still has labile affect. The patient also still seems to be disoriented and confused and the patient tries to answer my questions, but is always confused and unable to follow up directions. The patient also is still restless and still has angry episodes. Otherwise, the patient continued to comply with taking her medications and the patient continued to take Seroquel 100 mg 3 times a day with no side effects and the patient was not seeming to be sedated, but it seems that it is slightly calming her down. Also, she continued to take Aricept and we will increase Aricept dose to 10 mg every day. Also, continue to work with spring encaser as well as family in regard to discharge plans and placement issue and we will continue to follow up closely. JOB# [id number]
[2017-09-06] MEDS: oxyCODONE 5 mg IR Tab PO PRN (09:32)
[2017-09-06] MEDS: Lactulose 10 Gm/15 mL 30mL UDC PO SCH ×2 (09:34→18:12)
[2017-09-06] MEDS: Multivitamin Tab PO SCH (09:35)
--- NOTE | 2017-09-06 11:45 | Internal Medicine Prog Note ---
Internal Medicine Subjective - Subjective Service Date: 09/06/17 Patient seen and examined:: with staff Patient is:: awake, non-verbal, in bed, confused Per staff patient has:: no adverse event Internal Medicine Objective - Results Result Diagrams: 08/27/17 09:25 08/27/17 09:25 Recent Labs: Laboratory Last Values WBC 8.5 Th/cmm (4.8-10.8) 08/27/17 09:25 RBC 3.94 Mil/cmm (3.80-5.20) 08/27/17 09:25 Hgb 12.6 gm/dL (12-16) 08/27/17 09:25 Hct 37.4 % (41.0-60) L 08/27/17 09:25 MCV 95.1 fl (81-100) 08/27/17 09:25 MCH 32.1 pg (27.0-31.0) H 08/27/17 09:25 MCHC Differential 33.8 pg (28.0-36.0) 08/27/17 09:25 RDW 13.6 % (11.5-20.0) 08/27/17 09:25 Plt Count 408 Th/cmm (150-400) H 08/27/17 09:25 MPV 7.3 fl 08/27/17 09:25 Neutrophils % 57.1 % (40.0-80.0) 08/27/17 09:25 Lymphocytes % 33.6 % (20.0-50.0) 08/27/17 09:25 Monocytes % 6.9 % (2.0-10.0) 08/27/17 09:25 Eosinophils % 1.7 % (0.0-5.0) 08/27/17 09:25 Basophils % 0.7 % (0.0-2.0) 08/27/17 09:25 Sodium 134 mEq/L (136-145) L 08/27/17 09:25 Potassium 3.9 mEq/L (3.5-5.1) 08/27/17 09:25 Chloride 102 mEq/L (98-107) 08/27/17 09:25 Carbon Dioxide 23.3 mEq/L (21.0-31.0) 08/27/17 09:25 Anion Gap 12.6 (7.0-16.0) 05/27/18 09:25 BUN 22 mg/dL (7-25) 08/27/17 09:25 Creatinine 0.9 mg/dL (0.6-1.2) 08/27/17 09:25 Est GFR ( Amer) TNP 08/27/17 09:25 Est GFR (Non-Af Amer) TNP 08/27/17 09:25 BUN/Creatinine Ratio 24.4 08/27/17 09:25 Glucose 224 mg/dL (70-105) H 08/27/17 09:25 POC Glucose 160 MG/DL (70 - 105) H 08/31/17 16:39 Hemoglobin A1c % 6.2 % (4.0-6.0) H 08/25/17 17:56 Whole Bld Lactic Acid 1.57 mmol/L (0.60-1.99) 08/25/17 17:56 Calcium 10.1 mg/dL (8.6-10.3) 08/27/17 09:25 Total Bilirubin 0.3 mg/dL (0.3-1.0) 08/25/17 17:56 AST 15 U/L (13-39) 08/25/17 17:56 ALT 18 U/L (7-52) 08/25/17 17:56 Alkaline Phosphatase 62 U/L (34-104) 08/25/17 17:56 Total Protein 6.7 gm/dL (6.0-8.3) 08/25/17 17:56 Albumin 3.6 gm/dL (3.7-5.3) L 08/25/17 17:56 Globulin 3.1 gm/dL 08/25/17 17:56 Albumin/Globulin Ratio 1.2 (1.0-1.8) 08/25/17 17:56 Urine Source CATH 08/27/17 14:50 Urine Color YELLOW 08/27/17 14:50 Urine Clarity CLEAR (CLEAR) 08/27/17 14:50 Urine pH 5.5 (4.6 - 8.0) 08/27/17 14:50 Ur Specific [place] >= 1.030 (1.005-1.030) 08/27/17 14:50 Urine Protein NEGATIVE mg/dL (NEGATIVE) 08/27/17 14:50 Urine Glucose (UA) NEGATIVE mg/dL (NEGATIVE) 08/27/17 14:50 Urine Ketones NEGATIVE mg/dL (NEGATIVE) 08/27/17 14:50 Urine Blood NEGATIVE (NEGATIVE) 08/27/17 14:50 Urine Nitrate NEGATIVE (NEGATIVE) 08/27/17 14:50 Urine Bilirubin NEGATIVE (NEGATIVE) 08/27/17 14:50 Urine Urobilinogen 0.2 E.U./dL (0.2 - 1.0) 08/27/17 14:50 Ur Leukocyte Esterase NEGATIVE (NEGATIVE) 08/27/17 14:50 Urine RBC 0-2 /hpf (0-5) 08/27/17 14:50 Urine WBC 2-5 /hpf (0-5) 08/27/17 14:50 Ur Epithelial Cells FEW /lpf (FEW) 08/27/17 14:50 Amorphous Sediment MODERATE URATES (NONE SEEN) 08/27/17 14:50 Urine Bacteria MODERATE /hpf (NONE SEEN) H 08/27/17 14:50 - Physical Exam Vitals and I&O: Vital Signs Temp 97.4 F 09/06/17 06:09 Pulse 83 09/06/17 06:09 Resp 18 09/06/17 06:09 BP 136/50 09/06/17 06:09 Pulse Ox 97 09/06/17 06:09 Intake & Output 09/05/17 09/06/17 09/06/17 18:59 06:59 18:59 Intake Total 800 180 Balance 800 180 Intake: Oral 800 180 Other: # Voids 2 1 # Bowel Movements 0 Stool Characteristics Soft Soft Active Medications: Current Medications Acetaminophen (Tylenol) 650 mg PO Q4H PRN PRN Reason: Mild Pain / Temp above 100 Stop: 10/24/17 20:44 Last Admin: 08/30/17 05:41 Dose: 650 mg Al Hydrox/Mg Hydrox/Simethicone (Maalox) 30 ml PO Q4H PRN PRN Reason: GI DISTRESS Stop: 10/24/17 20:44 Bandage/Support Products (Hydrogel) 1 appl TP DAILY [facility] Stop: 10/25/17 08:59 Last Admin: 09/05/17 11:13 Dose: 1 appl Bisacodyl (Dulcolax 5 Mg Ec Tab) 10 mg PO DAILY PRN PRN Reason: Constipation Stop: 10/24/17 20:49 [place] Oil/[place] Balsam/Trypsin (Venelex) 1 appl TP DAILY [facility] Stop: 10/28/17 15:59 Last Admin: 09/05/17 11:12 Dose: 1 appl Donepezil HCl (Aricept) 10 mg PO DAILY [facility] Stop: 11/04/17 08:59 Last Admin: 09/06/17 09:34 Dose: 10 mg Ergocalciferol (Vitamin D) 50,000 iu PO QWEEK [facility] Stop: 10/26/17 08:59 Last Admin: 09/03/17 09:14 Dose: 50,000 iu Famotidine (Pepcid) 20 mg PO DAILY [facility] Stop: 10/25/17 08:59 Last Admin: 09/06/17 09:35 Dose: 20 mg Lactulose (Cephulac) 10 gm PO BID [facility] Stop: 10/25/17 08:59 Last Admin: 09/06/17 09:34 Dose: 10 gm Magnesium Hydroxide (Milk Of Magnesia) 30 ml PO HS PRN PRN Reason: Constipation Megestrol Acetate (Megace) 400 mg PO DAILY [facility] Stop: 10/25/17 08:59 Last Admin: 09/06/17 09:35 Dose: 400 mg Metformin HCl (Glucophage) 500 mg PO DAILY [facility] Stop: 10/25/17 08:59 Last Admin: 09/06/17 09:34 Dose: 500 mg Multivitamins/Vitamin C (Theragran) 1 tab PO DAILY [facility] Stop: 10/25/17 08:59 Last Admin: 09/06/17 09:35 Dose: 1 tab Oxycodone HCl (Oxycodone Ir) 2.5 mg PO Q6H PRN PRN Reason: Pain (Severe) Stop: 10/25/17 07:29 Last Admin: 09/06/17 09:32 Dose: 2.5 mg Quetiapine Fumarate (Seroquel) 100 mg PO TID [facility] Stop: 10/31/17 14:29 Last Admin: 09/06/17 09:34 Dose: 100 mg Senna (Senna) 8.6 mg PO BID PRN PRN Reason: Constipation Stop: 10/24/17 20:49 Sodium Phosphate (Fleet Enema) 135 ml RC DAILY PRN PRN Reason: NO BM IN THREE DAYS Stop: 10/24/17 20:49 Last Admin: 08/27/17 10:39 Dose: 135 ml Tramadol HCl (Ultram) 50 mg PO Q6H PRN PRN Reason: MODERATE PAIN Stop: 10/24/17 20:49 Last Admin: 09/05/17 09:27 Dose: 50 mg General: demented HEENT: NC/AT, PERRLA, EOMI, anicteric sclerae, throat clear Neck: Supple, No JVD, No thyromegaly, +2 carotid pulse wo bruit, No LAD, + JVD Lungs: CTAB Cardiovascular: RRR, Normal S1, Normal S2, without murmur Abdomen: non-tender, non-distended Extremities: clear Neurological: no change - Procedures Procedures: Procedures Procedure Code Date EXCIS KNEE SEMILUN CARTL 80.6 02/12/04 INJECT/INFUSE NEC 99.29 10/09/07 KNEE ARTHROSCOPY/SURGERY 30746 02/12/04 KNEE ARTHROSCOPY/SURGERY 77370 02/12/04 OTHER REPAIR OF KNEE 81.47 02/12/04 THER/PROPH/DIAG INJ, IV PUSH 44068 10/09/07 TX/PRO/DX INJ NEW DRUG ADDON 67033 10/09/07 Internal Medicine Assmt/Plan - Assessment Assessment: 1.DM. 2.ANEMIA. 3.DEMENTIA. - Plan Plan: CONTINUE ON CURRENT MEDICATION AND DIET. Nutritional Asmnt/Malnutr-PDOC - Dietary Evaluation Malnutrition Findings (Please click <Entered> for more info): Nutritional Asmnt/Malnutrition Start: 09/01/17 17: 04 Text: Status: Complete Freq: Protocol: Document 09/01/17 17:07 SHAWNG (Rec: 09/01/17 17:11 ALONA [email or web address]) Nutritional Asmnt/Malnutrition Patient General Information Nutritional Screening Low Risk Diagnosis psychosis Pertinent Medical Hx/Surgical Hx DM, dementia, HTN, CAD, CHF, CVA, TIA Subjective Information Per EMR, PO intake 25-75. Per PRODUCT DESIGNER, pt needs assist with feeding, consumed 100% of dinner last night and breakfast this morning. Current Diet Order/ Nutrition Support pureed, CCHO 60gm, lactose intolerant. boost glucose control Pertinent Medications vit D, pepcid, megace, glucophage, theragran, seroquel, senna Pertinent Labs 08/27 na 134, glucose 224, POC 160-243 Nutritional Hx/Data Height 1.55 m Height (Calculated Centimeters) 154.9 Current Weight (lbs) 52.163 kg Weight (Calculated Kilograms) 52.2 Weight (Calculated Grams) 62294.1 [place] Body Weight 105 Body Mass Index (BMI) 21.7 Weight Status Approriate GI Symptoms GI Symptoms None Last BM 08/28 Difficult in: None Skin Integrity/Comment: itnact Current %PO Good (75-100%) Estimated Nutritional Goals BEE in Kcals: Using Current wt Calories/Kcals/Kg 25-30 Kcals Calculated 3840-6972 Protein: Using Current wt Protein g/k-1.2 Protein Calculated 52-62 Fluid: ml 1300-1560ml (1ml/kcal) Nutritional Problem 1. Problem Problem altered nutrition related labs Etiology hx of DM Signs/Symptoms: glucose 224, POC 160-243 Malnutrition Alert Is there a minimum of two criteria No selected? Query Text:Check all the applicable criteria. A minimum of two criteria are recommended for diagnosis of either severe or non-severe malnutrition. Malnutrition Related to Morbid Obesity Malnutrition related to morbid obesity No Intervention/Recommendation Comments 1. Continue with [facility] pureed diet as ordered. MD to adjust insulin for optimal glycemic control. 2. Monitor PO intake, wt, labs and skin integrity 3. F/U as low risk in 7 days, 09/08, PO check 09/05 Expected Outcomes/Goals Expected Outcomes/Goals 1. PO intake to meet at least 75% of nutritional needs. 2. Wt stability, skin to remain intact, labs to approach WNL.
[2017-09-06] MEDS ORDERED: Haloperidol Lactate 5 mg/mL 1mL Vial ONE (13:54)
[2017-09-06] MEDS ORDERED: Haloperidol Lactate 5 mg/mL 1mL Vial IM ONE (14:00)
[2017-09-06] MEDS: Hydrogel 3 oz Tube TP SCH (18:12)
[2017-09-06] MEDS: Venelex 60gm Tube TP SCH (18:12)
--- NOTE | 2017-09-07 08:06 | Progress Notes ---
DATE: PSYCHIATRIC PROGRESS NOTE SUBJECTIVE: Chart reviewed and the patient interviewed. Also discussed the patient's condition with the staff and reviewed records and labs. The patient is still guarded and she is still in a depressed mood. The patient also is still withdrawn and she is still disheveled. She is still having angry outbursts, but seems to be slightly less than before. She also is compliant with taking her medications with no side effects of features. ASSESSMENT: The patient is still psychotic. TREATMENT PLAN: Continue to monitor her medications and her condition closely. The patient also still has wound in her right ankle. Wound care nurse is continuing to monitor that. At the same time, we will continue to work on her irritability and adjusting psychotropic medications and will continue to follow up. JOB# [id number]
[2017-09-07] MEDS: Lactulose 10 Gm/15 mL 30mL UDC PO SCH (08:40)
[2017-09-07] MEDS: oxyCODONE 5 mg IR Tab PO PRN ×2 (08:43→16:18)
[2017-09-07] MEDS: Multivitamin Tab PO SCH (08:44)
[2017-09-07] MEDS: Venelex 60gm Tube TP SCH (16:20)
[2017-09-07] MEDS: Hydrogel 3 oz Tube TP SCH (16:20)
--- NOTE | 2017-09-07 16:54 | Internal Medicine Prog Note ---
Internal Medicine Subjective - Subjective Service Date: 09/07/17 Patient seen and examined:: with staff Patient is:: awake, non-verbal, in bed, confused Per staff patient has:: no adverse event Internal Medicine Objective - Results Result Diagrams: 08/27/17 09:25 08/27/17 09:25 Recent Labs: Laboratory Last Values WBC 8.5 Th/cmm (4.8-10.8) 08/27/17 09:25 RBC 3.94 Mil/cmm (3.80-5.20) 08/27/17 09:25 Hgb 12.6 gm/dL (12-16) 08/27/17 09:25 Hct 37.4 % (41.0-60) L 08/27/17 09:25 MCV 95.1 fl (81-100) 08/27/17 09:25 MCH 32.1 pg (27.0-31.0) H 08/27/17 09:25 MCHC Differential 33.8 pg (28.0-36.0) 08/27/17 09:25 RDW 13.6 % (11.5-20.0) 08/27/17 09:25 Plt Count 408 Th/cmm (150-400) H 08/27/17 09:25 MPV 7.3 fl 08/27/17 09:25 Neutrophils % 57.1 % (40.0-80.0) 08/27/17 09:25 Lymphocytes % 33.6 % (20.0-50.0) 08/27/17 09:25 Monocytes % 6.9 % (2.0-10.0) 08/27/17 09:25 Eosinophils % 1.7 % (0.0-5.0) 08/27/17 09:25 Basophils % 0.7 % (0.0-2.0) 08/27/17 09:25 Sodium 134 mEq/L (136-145) L 08/27/17 09:25 Potassium 3.9 mEq/L (3.5-5.1) 08/27/17 09:25 Chloride 102 mEq/L (98-107) 08/27/17 09:25 Carbon Dioxide 23.3 mEq/L (21.0-31.0) 08/27/17 09:25 Anion Gap 12.6 (7.0-16.0) 05/27/18 09:25 BUN 22 mg/dL (7-25) 08/27/17 09:25 Creatinine 0.9 mg/dL (0.6-1.2) 08/27/17 09:25 Est GFR ( Amer) TNP 08/27/17 09:25 Est GFR (Non-Af Amer) TNP 08/27/17 09:25 BUN/Creatinine Ratio 24.4 08/27/17 09:25 Glucose 224 mg/dL (70-105) H 08/27/17 09:25 POC Glucose 160 MG/DL (70 - 105) H 08/31/17 16:39 Hemoglobin A1c % 6.2 % (4.0-6.0) H 08/25/17 17:56 Whole Bld Lactic Acid 1.57 mmol/L (0.60-1.99) 08/25/17 17:56 Calcium 10.1 mg/dL (8.6-10.3) 08/27/17 09:25 Total Bilirubin 0.3 mg/dL (0.3-1.0) 08/25/17 17:56 AST 15 U/L (13-39) 08/25/17 17:56 ALT 18 U/L (7-52) 08/25/17 17:56 Alkaline Phosphatase 62 U/L (34-104) 08/25/17 17:56 Total Protein 6.7 gm/dL (6.0-8.3) 08/25/17 17:56 Albumin 3.6 gm/dL (3.7-5.3) L 08/25/17 17:56 Globulin 3.1 gm/dL 08/25/17 17:56 Albumin/Globulin Ratio 1.2 (1.0-1.8) 08/25/17 17:56 Urine Source CATH 08/27/17 14:50 Urine Color YELLOW 08/27/17 14:50 Urine Clarity CLEAR (CLEAR) 08/27/17 14:50 Urine pH 5.5 (4.6 - 8.0) 08/27/17 14:50 Ur Specific [place] >= 1.030 (1.005-1.030) 08/27/17 14:50 Urine Protein NEGATIVE mg/dL (NEGATIVE) 08/27/17 14:50 Urine Glucose (UA) NEGATIVE mg/dL (NEGATIVE) 08/27/17 14:50 Urine Ketones NEGATIVE mg/dL (NEGATIVE) 08/27/17 14:50 Urine Blood NEGATIVE (NEGATIVE) 08/27/17 14:50 Urine Nitrate NEGATIVE (NEGATIVE) 08/27/17 14:50 Urine Bilirubin NEGATIVE (NEGATIVE) 08/27/17 14:50 Urine Urobilinogen 0.2 E.U./dL (0.2 - 1.0) 08/27/17 14:50 Ur Leukocyte Esterase NEGATIVE (NEGATIVE) 08/27/17 14:50 Urine RBC 0-2 /hpf (0-5) 08/27/17 14:50 Urine WBC 2-5 /hpf (0-5) 08/27/17 14:50 Ur Epithelial Cells FEW /lpf (FEW) 08/27/17 14:50 Amorphous Sediment MODERATE URATES (NONE SEEN) 08/27/17 14:50 Urine Bacteria MODERATE /hpf (NONE SEEN) H 08/27/17 14:50 - Physical Exam Vitals and I&O: Vital Signs Temp 97.9 F 09/07/17 15:27 Pulse 97 09/07/17 15:27 Resp 20 09/07/17 15:27 BP 157/97 09/07/17 15:27 Pulse Ox 97 09/07/17 15:27 Intake & Output 09/06/17 09/07/17 09/07/17 18:59 06:59 18:59 Intake Total 240 420 Balance 240 420 Intake: Oral 240 420 Other: # Voids 3 2 # Bowel Movements 0 Stool Characteristics Soft Soft Soft Active Medications: Current Medications Acetaminophen (Tylenol) 650 mg PO Q4H PRN PRN Reason: Mild Pain / Temp above 100 Stop: 10/24/17 20:44 Last Admin: 08/30/17 05:41 Dose: 650 mg Al Hydrox/Mg Hydrox/Simethicone (Maalox) 30 ml PO Q4H PRN PRN Reason: GI DISTRESS Stop: 10/24/17 20:44 Bandage/Support Products (Hydrogel) 1 appl TP DAILY JIL Stop: 10/25/17 08:59 Last Admin: 09/07/17 16:20 Dose: 1 appl Bisacodyl (Dulcolax 5 Mg Ec Tab) 10 mg PO DAILY PRN PRN Reason: Constipation Stop: 10/24/17 20:49 [place] Oil/[place] Balsam/Trypsin (Venelex) 1 appl TP DAILY [facility] Stop: 10/28/17 15:59 Last Admin: 09/07/17 16:20 Dose: 1 appl Donepezil HCl (Aricept) 10 mg PO DAILY [facility] Stop: 11/04/17 08:59 Last Admin: 09/07/17 08:44 Dose: 10 mg Ergocalciferol (Vitamin D) 50,000 iu PO QWEEK [facility] Stop: 10/26/17 08:59 Last Admin: 09/03/17 09:14 Dose: 50,000 iu Famotidine (Pepcid) 20 mg PO DAILY [facility] Stop: 10/25/17 08:59 Last Admin: 09/07/17 08:44 Dose: 20 mg Lactulose (Cephulac) 10 gm PO BID [facility] Stop: 10/25/17 08:59 Last Admin: 09/07/17 08:40 Dose: 10 gm Magnesium Hydroxide (Milk Of Magnesia) 30 ml PO HS PRN PRN Reason: Constipation Megestrol Acetate (Megace) 400 mg PO DAILY [facility] Stop: 10/25/17 08:59 Last Admin: 09/07/17 08:40 Dose: 400 mg Metformin HCl (Glucophage) 500 mg PO DAILY [facility] Stop: 10/25/17 08:59 Last Admin: 09/07/17 08:44 Dose: 500 mg Multivitamins/Vitamin C (Theragran) 1 tab PO DAILY [facility] Stop: 10/25/17 08:59 Last Admin: 09/07/17 08:44 Dose: 1 tab Oxycodone HCl (Oxycodone Ir) 2.5 mg PO Q6H PRN PRN Reason: Pain (Severe) Stop: 10/25/17 07:29 Last Admin: 09/07/17 16:18 Dose: 2.5 mg Quetiapine Fumarate (Seroquel) 125 mg PO TID [facility] Stop: 11/06/17 08:59 Last Admin: 09/07/17 16:19 Dose: 125 mg Senna (Senna) 8.6 mg PO BID PRN PRN Reason: Constipation Stop: 10/24/17 20:49 Sodium Phosphate (Fleet Enema) 135 ml RC DAILY PRN PRN Reason: NO BM IN THREE DAYS Stop: 10/24/17 20:49 Last Admin: 08/27/17 10:39 Dose: 135 ml Tramadol HCl (Ultram) 50 mg PO Q6H PRN PRN Reason: MODERATE PAIN Stop: 10/24/17 20:49 Last Admin: 09/05/17 09:27 Dose: 50 mg General: demented HEENT: NC/AT, PERRLA, EOMI, anicteric sclerae, throat clear Neck: Supple, No JVD, No thyromegaly, +2 carotid pulse wo bruit, No LAD, + JVD Lungs: CTAB Cardiovascular: RRR, Normal S1, Normal S2, without murmur Abdomen: non-tender, non-distended Extremities: clear Neurological: no change - Procedures Procedures: Procedures Procedure Code Date EXCIS KNEE SEMILUN CARTL 80.6 02/12/04 INJECT/INFUSE NEC 99.29 10/09/07 KNEE ARTHROSCOPY/SURGERY 81372 02/12/04 KNEE ARTHROSCOPY/SURGERY 82659 02/12/04 OTHER REPAIR OF KNEE 81.47 02/12/04 THER/PROPH/DIAG INJ, IV PUSH 42540 10/09/07 TX/PRO/DX INJ NEW DRUG ADDON 39652 10/09/07 Internal Medicine Assmt/Plan - Assessment Assessment: 1.DM. 2.ANEMIA. 3.DEMENTIA. - Plan Plan: CONTINUE ON CURRENT MEDICATION AND DIET.CT OF HEAD WITHOUT CONTRAST. Nutritional Asmnt/Malnutr-PDOC - Dietary Evaluation Malnutrition Findings (Please click <Entered> for more info): Nutritional Asmnt/Malnutrition Start: 09/01/17 17: 04 Text: Status: Complete Freq: Protocol: Document 09/01/17 17:07 LCALONA (Rec: 09/01/17 17:11 ALONA [email or web address]) Nutritional Asmnt/Malnutrition Patient General Information Nutritional Screening Low Risk Diagnosis psychosis Pertinent Medical Hx/Surgical Hx DM, dementia, HTN, CAD, CHF, CVA, TIA Subjective Information Per EMR, PO intake 25-75. Per [employer], pt needs assist with feeding, consumed 100% of dinner last night and breakfast this morning. Current Diet Order/ Nutrition Support pureed, CCHO 60gm, lactose intolerant. boost glucose control Pertinent Medications vit D, pepcid, megace, glucophage, theragran, seroquel, senna Pertinent Labs 08/27 na 134, glucose 224, POC 160-243 Nutritional Hx/Data Height 1.55 m Height (Calculated Centimeters) 154.9 Current Weight (lbs) 52.163 kg Weight (Calculated Kilograms) 52.2 Weight (Calculated Grams) 14654.1 [place] Body Weight 105 Body Mass Index (BMI) 21.7 Weight Status Approriate GI Symptoms GI Symptoms None Last BM 08/28 Difficult in: None Skin Integrity/Comment: itnact Current %PO Good (75-100%) Estimated Nutritional Goals BEE in Kcals: Using Current wt Calories/Kcals/Kg 25-30 Kcals Calculated 9875-6976 Protein: Using Current wt Protein g/k-1.2 Protein Calculated 52-62 Fluid: ml 1300-1560ml (1ml/kcal) Nutritional Problem 1. Problem Problem altered nutrition related labs Etiology hx of DM Signs/Symptoms: glucose 224, POC 160-243 Malnutrition Alert Is there a minimum of two criteria No selected? Query Text:Check all the applicable criteria. A minimum of two criteria are recommended for diagnosis of either severe or non-severe malnutrition. Malnutrition Related to Morbid Obesity Malnutrition related to morbid obesity No Intervention/Recommendation Comments 1. Continue with [facility] pureed diet as ordered. MD to adjust insulin for optimal glycemic control. 2. Monitor PO intake, wt, labs and skin integrity 3. F/U as low risk in 7 days, 09/08, PO check 09/05 Expected Outcomes/Goals Expected Outcomes/Goals 1. PO intake to meet at least 75% of nutritional needs. 2. Wt stability, skin to remain intact, labs to approach WNL.
--- NOTE | 2017-09-08 02:13 | Progress Notes ---
DATE: SUBJECTIVE: Chart reviewed and the patient interviewed. Also, discussed the patient's condition with the staff and reviewed records and labs. The patient is still guarded and suspicious and paranoid, but her affect is brighter. The patient also is less irritable and less agitated. She is still suspicious and paranoid and has episodes of anger and irritability. Yesterday, the patient was extremely agitated and angry, and the patient was given emergency medications to calm her down. She still has severe mood swings and anger and she still gets easily agitated and easily irritable. Although the patient has been taking Seroquel in a dose of 100 mg 3 times a day, yet she is still agitated and has episodes of irritability that required emergency medications. ASSESSMENT: The patient is still psychotic and still needs close monitoring. TREATMENT PLAN: Continue to monitor her behavior and her condition closely. Also, increase Seroquel to 125 mg 3 times a day and we will monitor any possibility of sedation because of her age. At the same time, we will continue to work on her irritability and anger and we will continue to follow up closely. Also, continue to work with case packer and sealer in regards to discharge plans and placement issue. JOB# [id number]
--- NOTE | 2017-09-08 08:39 | Diagnostic Imaging Report ---
Head CT without intravenous contrast Indication: Altered mild status Comparison: None Technique: Axial images were obtained from the vertex to the skull base without IV contrast. Coronal reconstructions were made. Total DLP: 586, CTDI28 FINDINGS: Images of the brain obtained without contrast demonstrate no evidence of an acute hemorrhage. Atrophy is noted. Moderate white matter disease is noted. The ventricles and basal cisterns are patent. No mass effect or midline shift. Atherosclerosis is noted. No evidence of a skull fracture or focal soft tissue swelling. The visualized paranasal sinuses are clear. IMPRESSION: No evidence of acute intracranial hemorrhage. Atrophy Moderate supratentorial white matter disease which is nonspecific and may be due to chronic microvessel ischemia. Atherosclerotic vascular disease.
[2017-09-08] MEDS: Multivitamin Tab PO SCH (10:00)
[2017-09-08] MEDS: Lactulose 10 Gm/15 mL 30mL UDC PO SCH ×2 (10:00→16:42)
[2017-09-08] MEDS: Venelex 60gm Tube TP SCH (10:10)
[2017-09-08] MEDS: Hydrogel 3 oz Tube TP SCH (10:11)
--- NOTE | 2017-09-08 16:24 | Internal Medicine Prog Note ---
Internal Medicine Subjective - Subjective Service Date: 09/08/17 Patient seen and examined:: with staff (CT OF HEAD IS NORMAL) Patient is:: awake, non-verbal, in bed, confused Per staff patient has:: no adverse event Internal Medicine Objective - Results Result Diagrams: 08/27/17 09:25 08/27/17 09:25 Recent Labs: Laboratory Last Values WBC 8.5 Th/cmm (4.8-10.8) 08/27/17 09:25 RBC 3.94 Mil/cmm (3.80-5.20) 08/27/17 09:25 Hgb 12.6 gm/dL (12-16) 08/27/17 09:25 Hct 37.4 % (41.0-60) L 08/27/17 09:25 MCV 95.1 fl (81-100) 08/27/17 09:25 MCH 32.1 pg (27.0-31.0) H 08/27/17 09:25 MCHC Differential 33.8 pg (28.0-36.0) 08/27/17 09:25 RDW 13.6 % (11.5-20.0) 08/27/17 09:25 Plt Count 408 Th/cmm (150-400) H 08/27/17 09:25 MPV 7.3 fl 08/27/17 09:25 Neutrophils % 57.1 % (40.0-80.0) 08/27/17 09:25 Lymphocytes % 33.6 % (20.0-50.0) 08/27/17 09:25 Monocytes % 6.9 % (2.0-10.0) 08/27/17 09:25 Eosinophils % 1.7 % (0.0-5.0) 08/27/17 09:25 Basophils % 0.7 % (0.0-2.0) 08/27/17 09:25 Sodium 134 mEq/L (136-145) L 08/27/17 09:25 Potassium 3.9 mEq/L (3.5-5.1) 08/27/17 09:25 Chloride 102 mEq/L (98-107) 08/27/17 09:25 Carbon Dioxide 23.3 mEq/L (21.0-31.0) 08/27/17 09:25 Anion Gap 12.6 (7.0-16.0) 08/27/17 09:25 BUN 22 mg/dL (7-25) 08/27/17 09:25 Creatinine 0.9 mg/dL (0.6-1.2) 08/27/17 09:25 Est GFR ( Amer) TNP 08/27/17 09:25 Est GFR (Non-Af Amer) TNP 08/27/17 09:25 BUN/Creatinine Ratio 24.4 08/27/17 09:25 Glucose 224 mg/dL (70-105) H 08/27/17 09:25 POC Glucose 160 MG/DL (70 - 105) H 08/31/17 16:39 Hemoglobin A1c % 6.2 % (4.0-6.0) H 08/25/17 17:56 Whole Bld Lactic Acid 1.57 mmol/L (0.60-1.99) 08/25/17 17:56 Calcium 10.1 mg/dL (8.6-10.3) 08/27/17 09:25 Total Bilirubin 0.3 mg/dL (0.3-1.0) 08/25/17 17:56 AST 15 U/L (13-39) 08/25/17 17:56 ALT 18 U/L (7-52) 08/25/17 17:56 Alkaline Phosphatase 62 U/L (34-104) 08/25/17 17:56 Total Protein 6.7 gm/dL (6.0-8.3) 08/25/17 17:56 Albumin 3.6 gm/dL (3.7-5.3) L 08/25/17 17:56 Globulin 3.1 gm/dL 08/25/17 17:56 Albumin/Globulin Ratio 1.2 (1.0-1.8) 08/25/17 17:56 Urine Source CATH 08/27/17 14:50 Urine Color YELLOW 08/27/17 14:50 Urine Clarity CLEAR (CLEAR) 08/27/17 14:50 Urine pH 5.5 (4.6 - 8.0) 08/27/17 14:50 Ur Specific [place] >= 1.030 (1.005-1.030) 08/27/17 14:50 Urine Protein NEGATIVE mg/dL (NEGATIVE) 08/27/17 14:50 Urine Glucose (UA) NEGATIVE mg/dL (NEGATIVE) 08/27/17 14:50 Urine Ketones NEGATIVE mg/dL (NEGATIVE) 08/27/17 14:50 Urine Blood NEGATIVE (NEGATIVE) 08/27/17 14:50 Urine Nitrate NEGATIVE (NEGATIVE) 08/27/17 14:50 Urine Bilirubin NEGATIVE (NEGATIVE) 08/27/17 14:50 Urine Urobilinogen 0.2 E.U./dL (0.2 - 1.0) 08/27/17 14:50 Ur Leukocyte Esterase NEGATIVE (NEGATIVE) 08/27/17 14:50 Urine RBC 0-2 /hpf (0-5) 08/27/17 14:50 Urine WBC 2-5 /hpf (0-5) 08/27/17 14:50 Ur Epithelial Cells FEW /lpf (FEW) 08/27/17 14:50 Amorphous Sediment MODERATE URATES (NONE SEEN) 08/27/17 14:50 Urine Bacteria MODERATE /hpf (NONE SEEN) H 08/27/17 14:50 - Physical Exam Vitals and I&O: Vital Signs Temp 97.8 F 09/08/17 15:17 Pulse 103 09/08/17 15:17 Resp 18 09/08/17 15:17 BP 122/61 09/08/17 15:17 Pulse Ox 97 09/08/17 15:17 Intake & Output 09/07/17 09/08/17 09/08/17 18:59 06:59 18:59 Intake Total 750 120 Balance 750 120 Intake: Oral 750 120 Other: # Voids 2 2 Stool Characteristics Soft Soft Active Medications: Current Medications Acetaminophen (Tylenol) 650 mg PO Q4H PRN PRN Reason: Mild Pain / Temp above 100 Stop: 10/24/17 20:44 Last Admin: 08/30/17 05:41 Dose: 650 mg Al Hydrox/Mg Hydrox/Simethicone (Maalox) 30 ml PO Q4H PRN PRN Reason: GI DISTRESS Stop: 10/24/17 20:44 Bandage/Support Products (Hydrogel) 1 appl TP DAILY [facility] Stop: 10/25/17 08:59 Last Admin: 09/08/17 10:11 Dose: 1 appl Bisacodyl (Dulcolax 5 Mg Ec Tab) 10 mg PO DAILY PRN PRN Reason: Constipation Stop: 10/24/17 20:49 [place] Oil/[place] Balsam/Trypsin (Venelex) 1 appl TP DAILY [facility] Stop: 10/28/17 15:59 Last Admin: 09/08/17 10:10 Dose: 1 appl Donepezil HCl (Aricept) 10 mg PO DAILY [facility] Stop: 11/04/17 08:59 Last Admin: 09/08/17 10:00 Dose: 10 mg Ergocalciferol (Vitamin D) 50,000 iu PO QWEEK [facility] Stop: 10/26/17 08:59 Last Admin: 09/03/17 09:14 Dose: 50,000 iu Famotidine (Pepcid) 20 mg PO DAILY [facility] Stop: 10/25/17 08:59 Last Admin: 09/08/17 10:00 Dose: 20 mg Lactulose (Cephulac) 10 gm PO BID [facility] Stop: 10/25/17 08:59 Last Admin: 09/08/17 10:00 Dose: 10 gm Magnesium Hydroxide (Milk Of Magnesia) 30 ml PO HS PRN PRN Reason: Constipation Megestrol Acetate (Megace) 400 mg PO DAILY [facility] Stop: 10/25/17 08:59 Last Admin: 09/08/17 10:00 Dose: 400 mg Metformin HCl (Glucophage) 500 mg PO DAILY [facility] Stop: 10/25/17 08:59 Last Admin: 09/08/17 10:00 Dose: 500 mg Multivitamins/Vitamin C (Theragran) 1 tab PO DAILY [facility] Stop: 10/25/17 08:59 Last Admin: 09/08/17 10:00 Dose: Not Given Oxycodone HCl (Oxycodone Ir) 2.5 mg PO Q6H PRN PRN Reason: Pain (Severe) Stop: 10/25/17 07:29 Last Admin: 09/07/17 16:18 Dose: 2.5 mg Quetiapine Fumarate 100 mg/ (Quetiapine Fumarate 25 mg) 125 mg PO TID [facility] Stop: 11/07/17 08:59 Last Admin: 09/08/17 14:20 Dose: 125 mg Senna (Senna) 8.6 mg PO BID PRN PRN Reason: Constipation Stop: 10/24/17 20:49 Sodium Phosphate (Fleet Enema) 135 ml RC DAILY PRN PRN Reason: NO BM IN THREE DAYS Stop: 10/24/17 20:49 Last Admin: 08/27/17 10:39 Dose: 135 ml Tramadol HCl (Ultram) 50 mg PO Q6H PRN PRN Reason: MODERATE PAIN Stop: 10/24/17 20:49 Last Admin: 09/05/17 09:27 Dose: 50 mg General: demented HEENT: NC/AT, PERRLA, EOMI, anicteric sclerae, throat clear Neck: Supple, No JVD, No thyromegaly, +2 carotid pulse wo bruit, No LAD, + JVD Lungs: CTAB Cardiovascular: RRR, Normal S1, Normal S2, without murmur Abdomen: non-tender, non-distended Extremities: clear Neurological: no change - Procedures Procedures: Procedures Procedure Code Date EXCIS KNEE SEMILUN CARTL 80.6 02/12/04 INJECT/INFUSE NEC 99.29 10/09/07 KNEE ARTHROSCOPY/SURGERY 15597 02/12/04 KNEE ARTHROSCOPY/SURGERY 23623 02/12/04 OTHER REPAIR OF KNEE 81.47 02/12/04 THER/PROPH/DIAG INJ, IV PUSH 98644 10/09/07 TX/PRO/DX INJ NEW DRUG ADDON 58093 10/09/07 Internal Medicine Assmt/Plan - Assessment Assessment: 1.DM. 2.ANEMIA. 3.DEMENTIA. - Plan Plan: CONTINUE ON CURRENT MEDICATION AND DIET. Nutritional Asmnt/Malnutr-PDOC - Dietary Evaluation Malnutrition Findings (Please click <Entered> for more info): Nutritional Asmnt/Malnutrition Start: 09/01/17 17: 04 Text: Status: Complete Freq: Protocol: Document 09/01/17 17:07 SHAWN (Rec: 09/01/17 17:11 ALONA [email or web address]) Nutritional Asmnt/Malnutrition Patient General Information Nutritional Screening Low Risk Diagnosis psychosis Pertinent Medical Hx/Surgical Hx DM, dementia, HTN, CAD, CHF, CVA, TIA Subjective Information Per EMR, PO intake 25-75. Per [employer]NA[employer]PERATIONS, pt needs assist with feeding, consumed 100% of dinner last night and breakfast this morning. Current Diet Order/ Nutrition Support pureed, CCHO 60gm, lactose intolerant. boost glucose control Pertinent Medications vit D, pepcid, megace, glucophage, theragran, seroquel, senna Pertinent Labs 08/27 na 134, glucose 224, POC 160-243 Nutritional Hx/Data Height 1.55 m Height (Calculated Centimeters) 154.9 Current Weight (lbs) 52.163 kg Weight (Calculated Kilograms) 52.2 Weight (Calculated Grams) 35777.1 [place] Body Weight 105 Body Mass Index (BMI) 21.7 Weight Status Approriate GI Symptoms GI Symptoms None Last BM 08/28 Difficult in: None Skin Integrity/Comment: itnact Current %PO Good (75-100%) Estimated Nutritional Goals BEE in Kcals: Using Current wt Calories/Kcals/Kg 25-30 Kcals Calculated 2892-1973 Protein: Using Current wt Protein g/k-1.2 Protein Calculated 52-62 Fluid: ml 1300-1560ml (1ml/kcal) Nutritional Problem 1. Problem Problem altered nutrition related labs Etiology hx of DM Signs/Symptoms: glucose 224, POC 160-243 Malnutrition Alert Is there a minimum of two criteria No selected? Query Text:Check all the applicable criteria. A minimum of two criteria are recommended for diagnosis of either severe or non-severe malnutrition. Malnutrition Related to Morbid Obesity Malnutrition related to morbid obesity No Intervention/Recommendation Comments 1. Continue with [facility] pureed diet as ordered. MD to adjust insulin for optimal glycemic control. 2. Monitor PO intake, wt, labs and skin integrity 3. F/U as low risk in 7 days, 09/08, PO check 09/05 Expected Outcomes/Goals Expected Outcomes/Goals 1. PO intake to meet at least 75% of nutritional needs. 2. Wt stability, skin to remain intact, labs to approach WNL.
--- NOTE | 2017-09-09 01:24 | Progress Notes ---
DATE: 09/08/2017 SUBJECTIVE: Chart reviewed and the patient interviewed. Also discussed the patient's condition with the staff and reviewed records and labs. The patient was supposed to be discharged today, but the patient though requested a CAT scan of the head to be done and insisted that it should be done prior to the day of discharge. It was done yesterday. The patient's result of the CAT scan is not there yet. The patient also is still anxious, depressed and withdrawn. Otherwise, the patient is compliant with taking her medications with no side effects of medications. ASSESSMENT: Planning to discharge the patient today if medically cleared by Dr. Price and CAT scan results are back and the patient to follow up there if she is discharged. Otherwise, we will continue current psychotropic medications and followup. JOB# [id number]
[2017-09-09] MEDS: Lactulose 10 Gm/15 mL 30mL UDC PO SCH ×2 (08:41→17:20)
[2017-09-09] MEDS: Multivitamin Tab PO SCH (08:42)
[2017-09-09] MEDS: Hydrogel 3 oz Tube TP SCH (08:51)
[2017-09-09] MEDS: Venelex 60gm Tube TP SCH (08:51)
--- NOTE | 2017-09-09 19:51 | Progress Notes ---
DATE: 09/09/2017 SUBJECTIVE: The patient is currently in the hospital. The patient needed a CAT scan and this delayed her discharge. She remains pretty anxious, depressed, withdrawn, otherwise calm at this time, still quiet, depressed. No episodes of yelling or screaming, slept about 5 hours. She has been yelling and shouting at times, but has been more redirectable, still confused, forgetful, minimally interactive on exam. Medications were noted. No overt side effects. No overt SI or HI. ASSESSMENT: The patient remains symptomatic, still labile, loud, confused. PLAN: We will continue to monitor pending the CT scan results. We will continue to monitor and follow up. [facility]# [id number]
--- NOTE | 2017-09-09 20:18 | General Progress Note ---
Subjective - Review of Systems Service Date: 09/09/17 Subjective: resting comfortably no distress Objective - Results Result Diagrams: 08/27/17 09:25 08/27/17 09:25 Recent Labs: Laboratory Last Values WBC 8.5 Th/cmm (4.8-10.8) 08/27/17 09:25 RBC 3.94 Mil/cmm (3.80-5.20) 08/27/17 09:25 Hgb 12.6 gm/dL (12-16) 08/27/17 09:25 Hct 37.4 % (41.0-60) L 08/27/17 09:25 MCV 95.1 fl (81-100) 08/27/17 09:25 MCH 32.1 pg (27.0-31.0) H 08/27/17 09:25 MCHC Differential 33.8 pg (28.0-36.0) 08/27/17 09:25 RDW 13.6 % (11.5-20.0) 08/27/17 09:25 Plt Count 408 Th/cmm (150-400) H 08/27/17 09:25 MPV 7.3 fl 08/27/17 09:25 Neutrophils % 57.1 % (40.0-80.0) 08/27/17 09:25 Lymphocytes % 33.6 % (20.0-50.0) 08/27/17 09:25 Monocytes % 6.9 % (2.0-10.0) 08/27/17 09:25 Eosinophils % 1.7 % (0.0-5.0) 08/27/17 09:25 Basophils % 0.7 % (0.0-2.0) 08/27/17 09:25 Sodium 134 mEq/L (136-145) L 08/27/17 09:25 Potassium 3.9 mEq/L (3.5-5.1) 08/27/17 09:25 Chloride 102 mEq/L (98-107) 08/27/17 09:25 Carbon Dioxide 23.3 mEq/L (21.0-31.0) 08/27/17 09:25 Anion Gap 12.6 (7.0-16.0) 08/27/17 09:25 BUN 22 mg/dL (7-25) 08/27/17 09:25 Creatinine 0.9 mg/dL (0.6-1.2) 08/27/17 09:25 Est GFR ( Amer) TNP 08/27/17 09:25 Est GFR (Non-Af Amer) TNP 08/27/17 09:25 BUN/Creatinine Ratio 24.4 08/27/17 09:25 Glucose 224 mg/dL (70-105) H 08/27/17 09:25 POC Glucose 160 MG/DL (70 - 105) H 08/31/17 16:39 Hemoglobin A1c % 6.2 % (4.0-6.0) H 08/25/17 17:56 Whole Bld Lactic Acid 1.57 mmol/L (0.60-1.99) 08/25/17 17:56 Calcium 10.1 mg/dL (8.6-10.3) 08/27/17 09:25 Total Bilirubin 0.3 mg/dL (0.3-1.0) 08/25/17 17:56 AST 15 U/L (13-39) 08/25/17 17:56 ALT 18 U/L (7-52) 08/25/17 17:56 Alkaline Phosphatase 62 U/L (34-104) 08/25/17 17:56 Total Protein 6.7 gm/dL (6.0-8.3) 08/25/17 17:56 Albumin 3.6 gm/dL (3.7-5.3) L 08/25/17 17:56 Globulin 3.1 gm/dL 08/25/17 17:56 Albumin/Globulin Ratio 1.2 (1.0-1.8) 08/25/17 17:56 Urine Source CATH 08/27/17 14:50 Urine Color YELLOW 08/27/17 14:50 Urine Clarity CLEAR (CLEAR) 08/27/17 14:50 Urine pH 5.5 (4.6 - 8.0) 08/27/17 14:50 Ur Specific [place] >= 1.030 (1.005-1.030) 08/27/17 14:50 Urine Protein NEGATIVE mg/dL (NEGATIVE) 08/27/17 14:50 Urine Glucose (UA) NEGATIVE mg/dL (NEGATIVE) 08/27/17 14:50 Urine Ketones NEGATIVE mg/dL (NEGATIVE) 08/27/17 14:50 Urine Blood NEGATIVE (NEGATIVE) 08/27/17 14:50 Urine Nitrate NEGATIVE (NEGATIVE) 08/27/17 14:50 Urine Bilirubin NEGATIVE (NEGATIVE) 08/27/17 14:50 Urine Urobilinogen 0.2 E.U./dL (0.2 - 1.0) 08/27/17 14:50 Ur Leukocyte Esterase NEGATIVE (NEGATIVE) 08/27/17 14:50 Urine RBC 0-2 /hpf (0-5) 08/27/17 14:50 Urine WBC 2-5 /hpf (0-5) 08/27/17 14:50 Ur Epithelial Cells FEW /lpf (FEW) 08/27/17 14:50 Amorphous Sediment MODERATE URATES (NONE SEEN) 08/27/17 14:50 Urine Bacteria MODERATE /hpf (NONE SEEN) H 08/27/17 14:50 - Physical Exam Vitals and I&O: Vital Signs Temp 97.8 F 09/09/17 19:58 Pulse 84 09/09/17 19:58 Resp 18 09/09/17 19:58 BP 121/59 09/09/17 19:58 Pulse Ox 99 09/09/17 19:58 Intake & Output 09/09/17 09/09/17 09/10/17 06:59 18:59 06:59 Intake Total 790 1200 120 Balance 790 1200 120 Intake: Oral 790 1200 120 Other: # Voids 1 1 # Bowel Movements 1 Active Medications: Current Medications Acetaminophen (Tylenol) 650 mg PO Q4H PRN PRN Reason: Mild Pain / Temp above 100 Stop: 10/24/17 20:44 Last Admin: 08/30/17 05:41 Dose: 650 mg Al Hydrox/Mg Hydrox/Simethicone (Maalox) 30 ml PO Q4H PRN PRN Reason: GI DISTRESS Stop: 10/24/17 20:44 Bandage/Support Products (Hydrogel) 1 appl TP DAILY JIL Stop: 10/25/17 08:59 Last Admin: 09/09/17 08:51 Dose: 1 appl Bisacodyl (Dulcolax 5 Mg Ec Tab) 10 mg PO DAILY PRN PRN Reason: Constipation Stop: 10/24/17 20:49 [place] Oil/[place] Balsam/Trypsin (Venelex) 1 appl TP DAILY JIL Stop: 10/28/17 15:59 Last Admin: 09/09/17 08:51 Dose: 1 appl Donepezil HCl (Aricept) 10 mg PO DAILY [facility] Stop: 11/04/17 08:59 Last Admin: 09/09/17 08:41 Dose: 10 mg Ergocalciferol (Vitamin D) 50,000 iu PO QWEEK [facility] Stop: 10/26/17 08:59 Last Admin: 09/03/17 09:14 Dose: 50,000 iu Famotidine (Pepcid) 20 mg PO DAILY [facility] Stop: 10/25/17 08:59 Last Admin: 09/09/17 08:42 Dose: 20 mg Lactulose (Cephulac) 10 gm PO BID [facility] Stop: 10/25/17 08:59 Last Admin: 09/09/17 17:20 Dose: Not Given Magnesium Hydroxide (Milk Of Magnesia) 30 ml PO HS PRN PRN Reason: Constipation Megestrol Acetate (Megace) 400 mg PO DAILY [facility] Stop: 10/25/17 08:59 Last Admin: 09/09/17 08:41 Dose: 400 mg Metformin HCl (Glucophage) 500 mg PO DAILY [facility] Stop: 10/25/17 08:59 Last Admin: 09/09/17 08:42 Dose: 500 mg Multivitamins/Vitamin C (Theragran) 1 tab PO DAILY [facility] Stop: 10/25/17 08:59 Last Admin: 09/09/17 08:42 Dose: 1 tab Oxycodone HCl (Oxycodone Ir) 2.5 mg PO Q6H PRN PRN Reason: Pain (Severe) Stop: 10/25/17 07:29 Last Admin: 09/07/17 16:18 Dose: 2.5 mg Quetiapine Fumarate 100 mg/ (Quetiapine Fumarate 25 mg) 125 mg PO TID [facility] Stop: 11/07/17 08:59 Last Admin: 09/09/17 13:13 Dose: 125 mg Senna (Senna) 8.6 mg PO BID PRN PRN Reason: Constipation Stop: 10/24/17 20:49 Sodium Phosphate (Fleet Enema) 135 ml RC DAILY PRN PRN Reason: NO BM IN THREE DAYS Stop: 10/24/17 20:49 Last Admin: 08/27/17 10:39 Dose: 135 ml Tramadol HCl (Ultram) 50 mg PO Q6H PRN PRN Reason: MODERATE PAIN Stop: 10/24/17 20:49 Last Admin: 09/05/17 09:27 Dose: 50 mg General: No acute distress HEENT: Atraumatic Neck: Supple, JVD Cardiovascular: Regular rate, Normal S1, Normal S2 Lungs: Clear to auscultation Abdomen: Bowel sounds, Soft - Procedures Procedures: Procedures Procedure Code Date EXCIS KNEE SEMILUN CARTL 80.6 02/12/04 INJECT/INFUSE NEC 99.29 10/09/07 KNEE ARTHROSCOPY/SURGERY 05631 02/12/04 KNEE ARTHROSCOPY/SURGERY 46902 02/12/04 OTHER REPAIR OF KNEE 81.47 02/12/04 THER/PROPH/DIAG INJ, IV PUSH 51161 10/09/07 TX/PRO/DX INJ NEW DRUG ADDON 94891 10/09/07 Assessment/Plan - Assessment Assessment: PSYCHIATRIC DISORDER DJD DM ANEMIA MILD PROTEIN MALNUTRITION - Plan Plan: cont current treatment Nutritional Asmnt/Malnutr-PDOC - Dietary Evaluation Malnutrition Findings (Please click <Entered> for more info): Nutritional Asmnt/Malnutrition Start: 09/01/17 17: 04 Text: Status: Complete Freq: Protocol: Document 09/01/17 17:07 [email or web address] (Rec: 09/01/17 17:11 LCALONAG [email or web address]) Nutritional Asmnt/Malnutrition Patient General Information Nutritional Screening Low Risk Diagnosis psychosis Pertinent Medical Hx/Surgical Hx DM, dementia, HTN, CAD, CHF, CVA, TIA Subjective Information Per EMR, PO intake 25-75. 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 Current Diet Order/ Nutrition Support pureed, CCHO 60gm, lactose intolerant. boost glucose control Pertinent Medications vit D, pepcid, megace, glucophage, theragran, seroquel, senna Pertinent Labs 08/27 na 134, glucose 224, POC 160-243 Nutritional Hx/Data Height 1.55 m Height (Calculated Centimeters) 154.9 Current Weight (lbs) 52.163 kg Weight (Calculated Kilograms) 52.2 Weight (Calculated Grams) 33898.1 [place] Body Weight 105 Body Mass Index (BMI) 21.7 Weight Status Approriate GI Symptoms GI Symptoms None Last BM 08/28 Difficult in: None Skin Integrity/Comment: itnact Current %PO Good (75-100%) Estimated Nutritional Goals BEE in Kcals: Using Current wt Calories/Kcals/Kg 25-30 Kcals Calculated 5610-9461 Protein: Using Current wt Protein g/k-1.2 Protein Calculated 52-62 Fluid: ml 1300-1560ml (1ml/kcal) Nutritional Problem 1. Problem Problem altered nutrition related labs Etiology hx of DM Signs/Symptoms: glucose 224, POC 160-243 Malnutrition Alert Is there a minimum of two criteria No selected? Query Text:Check all the applicable criteria. A minimum of two criteria are recommended for diagnosis of either severe or non-severe malnutrition. Malnutrition Related to Morbid Obesity Malnutrition related to morbid obesity No Intervention/Recommendation Comments 1. Continue with [facility] pureed diet as ordered. MD to adjust insulin for optimal glycemic control. 2. Monitor PO intake, wt, labs and skin integrity 3. F/U as low risk in 7 days, 09/08, PO check 09/05 Expected Outcomes/Goals Expected Outcomes/Goals 1. PO intake to meet at least 75% of nutritional needs. 2. Wt stability, skin to remain intact, labs to approach WNL.
[2017-09-10] MEDS: Multivitamin Tab PO SCH (08:47)
[2017-09-10] MEDS: Lactulose 10 Gm/15 mL 30mL UDC PO SCH ×2 (08:47→18:54)
[2017-09-10] MEDS: Venelex 60gm Tube TP SCH (08:54)
[2017-09-10] MEDS: Hydrogel 3 oz Tube TP SCH (08:56)
--- NOTE | 2017-09-10 16:15 | General Progress Note ---
Subjective - Review of Systems Service Date: 09/10/17 Subjective: resting comfortably no distress Objective - Results Result Diagrams: 08/27/17 09:25 08/27/17 09:25 Recent Labs: Laboratory Last Values WBC 8.5 Th/cmm (4.8-10.8) 08/27/17 09:25 RBC 3.94 Mil/cmm (3.80-5.20) 08/27/17 09:25 Hgb 12.6 gm/dL (12-16) 08/27/17 09:25 Hct 37.4 % (41.0-60) L 08/27/17 09:25 MCV 95.1 fl (81-100) 08/27/17 09:25 MCH 32.1 pg (27.0-31.0) H 08/27/17 09:25 MCHC Differential 33.8 pg (28.0-36.0) 08/27/17 09:25 RDW 13.6 % (11.5-20.0) 08/27/17 09:25 Plt Count 408 Th/cmm (150-400) H 08/27/17 09:25 MPV 7.3 fl 08/27/17 09:25 Neutrophils % 57.1 % (40.0-80.0) 08/27/17 09:25 Lymphocytes % 33.6 % (20.0-50.0) 08/27/17 09:25 Monocytes % 6.9 % (2.0-10.0) 08/27/17 09:25 Eosinophils % 1.7 % (0.0-5.0) 08/27/17 09:25 Basophils % 0.7 % (0.0-2.0) 08/27/17 09:25 Sodium 134 mEq/L (136-145) L 08/27/17 09:25 Potassium 3.9 mEq/L (3.5-5.1) 08/27/17 09:25 Chloride 102 mEq/L (98-107) 08/27/17 09:25 Carbon Dioxide 23.3 mEq/L (21.0-31.0) 08/27/17 09:25 Anion Gap 12.6 (7.0-16.0) 08/27/17 09:25 BUN 22 mg/dL (7-25) 08/27/17 09:25 Creatinine 0.9 mg/dL (0.6-1.2) 08/27/17 09:25 Est GFR ( Amer) TNP 08/27/17 09:25 Est GFR (Non-Af Amer) TNP 08/27/17 09:25 BUN/Creatinine Ratio 24.4 08/27/17 09:25 Glucose 224 mg/dL (70-105) H 08/27/17 09:25 POC Glucose 160 MG/DL (70 - 105) H 08/31/17 16:39 Hemoglobin A1c % 6.2 % (4.0-6.0) H 08/25/17 17:56 Whole Bld Lactic Acid 1.57 mmol/L (0.60-1.99) 08/25/17 17:56 Calcium 10.1 mg/dL (8.6-10.3) 08/27/17 09:25 Total Bilirubin 0.3 mg/dL (0.3-1.0) 08/25/17 17:56 AST 15 U/L (13-39) 08/25/17 17:56 ALT 18 U/L (7-52) 08/25/17 17:56 Alkaline Phosphatase 62 U/L (34-104) 08/25/17 17:56 Total Protein 6.7 gm/dL (6.0-8.3) 08/25/17 17:56 Albumin 3.6 gm/dL (3.7-5.3) L 08/25/17 17:56 Globulin 3.1 gm/dL 08/25/17 17:56 Albumin/Globulin Ratio 1.2 (1.0-1.8) 08/25/17 17:56 Urine Source CATH 08/27/17 14:50 Urine Color YELLOW 08/27/17 14:50 Urine Clarity CLEAR (CLEAR) 08/27/17 14:50 Urine pH 5.5 (4.6 - 8.0) 08/27/17 14:50 Ur Specific [place] >= 1.030 (1.005-1.030) 08/27/17 14:50 Urine Protein NEGATIVE mg/dL (NEGATIVE) 08/27/17 14:50 Urine Glucose (UA) NEGATIVE mg/dL (NEGATIVE) 08/27/17 14:50 Urine Ketones NEGATIVE mg/dL (NEGATIVE) 08/27/17 14:50 Urine Blood NEGATIVE (NEGATIVE) 08/27/17 14:50 Urine Nitrate NEGATIVE (NEGATIVE) 08/27/17 14:50 Urine Bilirubin NEGATIVE (NEGATIVE) 08/27/17 14:50 Urine Urobilinogen 0.2 E.U./dL (0.2 - 1.0) 08/27/17 14:50 Ur Leukocyte Esterase NEGATIVE (NEGATIVE) 08/27/17 14:50 Urine RBC 0-2 /hpf (0-5) 08/27/17 14:50 Urine WBC 2-5 /hpf (0-5) 08/27/17 14:50 Ur Epithelial Cells FEW /lpf (FEW) 08/27/17 14:50 Amorphous Sediment MODERATE URATES (NONE SEEN) 08/27/17 14:50 Urine Bacteria MODERATE /hpf (NONE SEEN) H 08/27/17 14:50 - Physical Exam Vitals and I&O: Vital Signs Temp 97.8 F 09/10/17 14:00 Pulse 61 09/10/17 14:00 Resp 20 09/10/17 14:00 BP 144/59 09/10/17 14:00 Pulse Ox 95 09/10/17 14:00 Intake & Output 09/09/17 09/10/17 09/10/17 18:59 06:59 18:59 Intake Total 1200 240 Output Total 1 Balance 1200 239 Intake: Oral 1200 240 Output: Urine/Stool Mix 1 Other: # Voids 1 # Bowel Movements 1 Active Medications: Current Medications Acetaminophen (Tylenol) 650 mg PO Q4H PRN PRN Reason: Mild Pain / Temp above 100 Stop: 10/24/17 20:44 Last Admin: 08/30/17 05:41 Dose: 650 mg Al Hydrox/Mg Hydrox/Simethicone (Maalox) 30 ml PO Q4H PRN PRN Reason: GI DISTRESS Stop: 10/24/17 20:44 Bandage/Support Products (Hydrogel) 1 appl TP DAILY JIL Stop: 10/25/17 08:59 Last Admin: 09/10/17 08:56 Dose: 1 appl Bisacodyl (Dulcolax 5 Mg Ec Tab) 10 mg PO DAILY PRN PRN Reason: Constipation Stop: 10/24/17 20:49 [place] Oil/[place] Balsam/Trypsin (Venelex) 1 appl TP DAILY JIL Stop: 10/28/17 15:59 Last Admin: 09/10/17 08:54 Dose: 1 appl Donepezil HCl (Aricept) 10 mg PO DAILY [facility] Stop: 11/04/17 08:59 Last Admin: 09/10/17 08:48 Dose: 10 mg Ergocalciferol (Vitamin D) 50,000 iu PO QWEEK [facility] Stop: 10/26/17 08:59 Last Admin: 09/10/17 08:53 Dose: 50,000 iu Famotidine (Pepcid) 20 mg PO DAILY [facility] Stop: 10/25/17 08:59 Last Admin: 09/10/17 08:47 Dose: 20 mg Lactulose (Cephulac) 10 gm PO BID [facility] Stop: 10/25/17 08:59 Last Admin: 09/10/17 08:47 Dose: 10 gm Magnesium Hydroxide (Milk Of Magnesia) 30 ml PO HS PRN PRN Reason: Constipation Megestrol Acetate (Megace) 400 mg PO DAILY [facility] Stop: 10/25/17 08:59 Last Admin: 09/10/17 08:47 Dose: 400 mg Metformin HCl (Glucophage) 500 mg PO DAILY [facility] Stop: 10/25/17 08:59 Last Admin: 09/10/17 08:47 Dose: 500 mg Multivitamins/Vitamin C (Theragran) 1 tab PO DAILY [facility] Stop: 10/25/17 08:59 Last Admin: 09/10/17 08:47 Dose: 1 tab Oxycodone HCl (Oxycodone Ir) 2.5 mg PO Q6H PRN PRN Reason: Pain (Severe) Stop: 10/25/17 07:29 Last Admin: 09/07/17 16:18 Dose: 2.5 mg Quetiapine Fumarate 100 mg/ (Quetiapine Fumarate 25 mg) 125 mg PO TID [facility] Stop: 11/07/17 08:59 Last Admin: 09/10/17 08:47 Dose: 125 mg Senna (Senna) 8.6 mg PO BID PRN PRN Reason: Constipation Stop: 10/24/17 20:49 Sodium Phosphate (Fleet Enema) 135 ml RC DAILY PRN PRN Reason: NO BM IN THREE DAYS Stop: 10/24/17 20:49 Last Admin: 08/27/17 10:39 Dose: 135 ml Tramadol HCl (Ultram) 50 mg PO Q6H PRN PRN Reason: MODERATE PAIN Stop: 10/24/17 20:49 Last Admin: 09/05/17 09:27 Dose: 50 mg General: No acute distress HEENT: Atraumatic Neck: Supple, JVD Cardiovascular: Regular rate, Normal S1, Normal S2 Lungs: Clear to auscultation Abdomen: Bowel sounds, Soft - Procedures Procedures: Procedures Procedure Code Date EXCIS KNEE SEMILUN CARTL 80.6 02/12/04 INJECT/INFUSE NEC 99.29 10/09/07 KNEE ARTHROSCOPY/SURGERY 40820 02/12/04 KNEE ARTHROSCOPY/SURGERY 16390 02/12/04 OTHER REPAIR OF KNEE 81.47 02/12/04 THER/PROPH/DIAG INJ, IV PUSH 51695 10/09/07 TX/PRO/DX INJ NEW DRUG ADDON 04006 10/09/07 Assessment/Plan - Assessment Assessment: PSYCHIATRIC DISORDER DJD DM ANEMIA MILD PROTEIN MALNUTRITION - Plan Plan: cont current treatment Nutritional Asmnt/Malnutr-PDOC - Dietary Evaluation Malnutrition Findings (Please click <Entered> for more info): Nutritional Asmnt/Malnutrition Start: 09/01/17 17: 04 Text: Status: Complete Freq: Protocol: Document 09/01/17 17:07 [email or web address] (Rec: 09/01/17 17:11 DESMOND [email or web address]) Nutritional Asmnt/Malnutrition Patient General Information Nutritional Screening Low Risk Diagnosis psychosis Pertinent Medical Hx/Surgical Hx DM, dementia, HTN, CAD, CHF, CVA, TIA Subjective Information Per EMR, PO intake 25-75. 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 Current Diet Order/ Nutrition Support pureed, CCHO 60gm, lactose intolerant. boost glucose control Pertinent Medications vit D, pepcid, megace, glucophage, theragran, seroquel, senna Pertinent Labs 08/27 na 134, glucose 224, POC 160-243 Nutritional Hx/Data Height 1.55 m Height (Calculated Centimeters) 154.9 Current Weight (lbs) 52.163 kg Weight (Calculated Kilograms) 52.2 Weight (Calculated Grams) 05370.1 [place] Body Weight 105 Body Mass Index (BMI) 21.7 Weight Status Approriate GI Symptoms GI Symptoms None Last BM 5/28 Difficult in: None Skin Integrity/Comment: itnact Current %PO Good (75-100%) Estimated Nutritional Goals BEE in Kcals: Using Current wt Calories/Kcals/Kg 25-30 Kcals Calculated 5277-1756 Protein: Using Current wt Protein g/k-1.2 Protein Calculated 52-62 Fluid: ml 1300-1560ml (1ml/kcal) Nutritional Problem 1. Problem Problem altered nutrition related labs Etiology hx of DM Signs/Symptoms: glucose 224, POC 160-243 Malnutrition Alert Is there a minimum of two criteria No selected? Query Text:Check all the applicable criteria. A minimum of two criteria are recommended for diagnosis of either severe or non-severe malnutrition. Malnutrition Related to Morbid Obesity Malnutrition related to morbid obesity No Intervention/Recommendation Comments 1. Continue with CCHO pureed diet as ordered. MD to adjust insulin for optimal glycemic control. 2. Monitor PO intake, wt, labs and skin integrity 3. F/U as low risk in 7 days, 09/08, PO check 09/05 Expected Outcomes/Goals Expected Outcomes/Goals 1. PO intake to meet at least 75% of nutritional needs. 2. Wt stability, skin to remain intact, labs to approach WNL.
--- NOTE | 2017-09-11 01:41 | Progress Notes ---
DATE: 09/10/2017 SUBJECTIVE: The patient is calm, cooperative. No episodes of yelling or screaming over the past 12 hours. Staff noting she slept about 5 hours. Apparently, per staff there were some episodes where she was yelling in the middle of the night, but she was redirectable and this stopped quite quickly. She remains disoriented, still depressed, mostly withdrawn, still with some mood liabilities, but no agitation, no combative behavior. Seems to be improving. ASSESSMENT: The patient likely approaching her baseline, improving, no combative behaviors. She remains confused. Medications were noted. We will continue to monitor and follow up. JOB# [id number]
[2017-09-11] MEDS: Lactulose 10 Gm/15 mL 30mL UDC PO SCH ×2 (09:25→16:05)
[2017-09-11] MEDS: Venelex 60gm Tube TP SCH (09:27)
[2017-09-11] MEDS: Multivitamin Tab PO SCH (09:27)
[2017-09-11] MEDS: Hydrogel 3 oz Tube TP SCH (09:27)
--- NOTE | 2017-09-11 21:52 | Internal Medicine Prog Note ---
Internal Medicine Subjective - Subjective Service Date: 09/11/17 Patient seen and examined:: with staff Patient is:: awake, non-verbal, in bed, confused Per staff patient has:: no adverse event Internal Medicine Objective - Results Result Diagrams: 08/27/17 09:25 08/27/17 09:25 Recent Labs: Laboratory Last Values WBC 8.5 Th/cmm (4.8-10.8) 08/27/17 09:25 RBC 3.94 Mil/cmm (3.80-5.20) 08/27/17 09:25 Hgb 12.6 gm/dL (12-16) 08/27/17 09:25 Hct 37.4 % (41.0-60) L 08/27/17 09:25 MCV 95.1 fl (81-100) 08/27/17 09:25 MCH 32.1 pg (27.0-31.0) H 08/27/17 09:25 MCHC Differential 33.8 pg (28.0-36.0) 08/27/17 09:25 RDW 13.6 % (11.5-20.0) 08/27/17 09:25 Plt Count 408 Th/cmm (150-400) H 08/27/17 09:25 MPV 7.3 fl 08/27/17 09:25 Neutrophils % 57.1 % (40.0-80.0) 08/27/17 09:25 Lymphocytes % 33.6 % (20.0-50.0) 08/27/17 09:25 Monocytes % 6.9 % (2.0-10.0) 08/27/17 09:25 Eosinophils % 1.7 % (0.0-5.0) 08/27/17 09:25 Basophils % 0.7 % (0.0-2.0) 08/27/17 09:25 Sodium 134 mEq/L (136-145) L 08/27/17 09:25 Potassium 3.9 mEq/L (3.5-5.1) 08/27/17 09:25 Chloride 102 mEq/L (98-107) 08/27/17 09:25 Carbon Dioxide 23.3 mEq/L (21.0-31.0) 08/27/17 09:25 Anion Gap 12.6 (7.0-16.0) 05/27/18 09:25 BUN 22 mg/dL (7-25) 08/27/17 09:25 Creatinine 0.9 mg/dL (0.6-1.2) 08/27/17 09:25 Est GFR ( Amer) TNP 08/27/17 09:25 Est GFR (Non-Af Amer) TNP 08/27/17 09:25 BUN/Creatinine Ratio 24.4 08/27/17 09:25 Glucose 224 mg/dL (70-105) H 08/27/17 09:25 POC Glucose 160 MG/DL (70 - 105) H 08/31/17 16:39 Hemoglobin A1c % 6.2 % (4.0-6.0) H 08/25/17 17:56 Whole Bld Lactic Acid 1.57 mmol/L (0.60-1.99) 08/25/17 17:56 Calcium 10.1 mg/dL (8.6-10.3) 08/27/17 09:25 Total Bilirubin 0.3 mg/dL (0.3-1.0) 08/25/17 17:56 AST 15 U/L (13-39) 08/25/17 17:56 ALT 18 U/L (7-52) 08/25/17 17:56 Alkaline Phosphatase 62 U/L (34-104) 08/25/17 17:56 Total Protein 6.7 gm/dL (6.0-8.3) 08/25/17 17:56 Albumin 3.6 gm/dL (3.7-5.3) L 08/25/17 17:56 Globulin 3.1 gm/dL 08/25/17 17:56 Albumin/Globulin Ratio 1.2 (1.0-1.8) 08/25/17 17:56 Urine Source CATH 08/27/17 14:50 Urine Color YELLOW 08/27/17 14:50 Urine Clarity CLEAR (CLEAR) 08/27/17 14:50 Urine pH 5.5 (4.6 - 8.0) 08/27/17 14:50 Ur Specific [place] >= 1.030 (1.005-1.030) 08/27/17 14:50 Urine Protein NEGATIVE mg/dL (NEGATIVE) 08/27/17 14:50 Urine Glucose (UA) NEGATIVE mg/dL (NEGATIVE) 08/27/17 14:50 Urine Ketones NEGATIVE mg/dL (NEGATIVE) 08/27/17 14:50 Urine Blood NEGATIVE (NEGATIVE) 08/27/17 14:50 Urine Nitrate NEGATIVE (NEGATIVE) 08/27/17 14:50 Urine Bilirubin NEGATIVE (NEGATIVE) 08/27/17 14:50 Urine Urobilinogen 0.2 E.U./dL (0.2 - 1.0) 08/27/17 14:50 Ur Leukocyte Esterase NEGATIVE (NEGATIVE) 08/27/17 14:50 Urine RBC 0-2 /hpf (0-5) 08/27/17 14:50 Urine WBC 2-5 /hpf (0-5) 08/27/17 14:50 Ur Epithelial Cells FEW /lpf (FEW) 08/27/17 14:50 Amorphous Sediment MODERATE URATES (NONE SEEN) 08/27/17 14:50 Urine Bacteria MODERATE /hpf (NONE SEEN) H 08/27/17 14:50 - Physical Exam Vitals and I&O: Vital Signs Temp 98.3 F 09/11/17 20:18 Pulse 95 09/11/17 20:18 Resp 19 09/11/17 20:18 BP 142/58 09/11/17 20:18 Pulse Ox 98 09/11/17 20:18 Intake & Output 09/11/17 09/11/17 09/12/17 06:59 18:59 06:59 Intake Total 180 360 120 Output Total 2 Balance 178 360 120 Intake: Oral 180 360 120 Output: Stool 1 Urine/Stool Mix 1 Other: # Voids 1 3 1 # Bowel Movements 0 0 Active Medications: Current Medications Acetaminophen (Tylenol) 650 mg PO Q4H PRN PRN Reason: Mild Pain / Temp above 100 Stop: 10/24/17 20:44 Last Admin: 08/30/17 05:41 Dose: 650 mg Al Hydrox/Mg Hydrox/Simethicone (Maalox) 30 ml PO Q4H PRN PRN Reason: GI DISTRESS Stop: 10/24/17 20:44 Bandage/Support Products (Hydrogel) 1 appl TP DAILY JIL Stop: 10/25/17 08:59 Last Admin: 09/11/17 09:27 Dose: 1 appl Bisacodyl (Dulcolax 5 Mg Ec Tab) 10 mg PO DAILY PRN PRN Reason: Constipation Stop: 10/24/17 20:49 [place] Oil/[place] Balsam/Trypsin (Venelex) 1 appl TP DAILY [facility] Stop: 10/28/17 15:59 Last Admin: 09/11/17 09:27 Dose: 1 appl Donepezil HCl (Aricept) 10 mg PO DAILY [facility] Stop: 11/04/17 08:59 Last Admin: 09/11/17 09:27 Dose: 10 mg Ergocalciferol (Vitamin D) 50,000 iu PO QWEEK [facility] Stop: 10/26/17 08:59 Last Admin: 09/10/17 08:53 Dose: 50,000 iu Famotidine (Pepcid) 20 mg PO DAILY [facility] Stop: 10/25/17 08:59 Last Admin: 09/11/17 09:27 Dose: 20 mg Lactulose (Cephulac) 10 gm PO BID [facility] Stop: 10/25/17 08:59 Last Admin: 09/11/17 16:05 Dose: 10 gm Magnesium Hydroxide (Milk Of Magnesia) 30 ml PO HS PRN PRN Reason: Constipation Megestrol Acetate (Megace) 400 mg PO DAILY [facility] Stop: 10/25/17 08:59 Last Admin: 09/11/17 09:24 Dose: 400 mg Metformin HCl (Glucophage) 500 mg PO DAILY [facility] Stop: 10/25/17 08:59 Last Admin: 09/11/17 09:27 Dose: 500 mg Multivitamins/Vitamin C (Theragran) 1 tab PO DAILY [facility] Stop: 10/25/17 08:59 Last Admin: 09/11/17 09:27 Dose: 1 tab Oxycodone HCl (Oxycodone Ir) 2.5 mg PO Q6H PRN PRN Reason: Pain (Severe) Stop: 10/25/17 07:29 Last Admin: 09/07/17 16:18 Dose: 2.5 mg Quetiapine Fumarate 100 mg/ (Quetiapine Fumarate 25 mg) 125 mg PO TID [facility] Stop: 11/07/17 08:59 Last Admin: 09/11/17 20:34 Dose: Not Given Senna (Senna) 8.6 mg PO BID PRN PRN Reason: Constipation Stop: 10/24/17 20:49 Sodium Phosphate (Fleet Enema) 135 ml RC DAILY PRN PRN Reason: NO BM IN THREE DAYS Stop: 10/24/17 20:49 Last Admin: 08/27/17 10:39 Dose: 135 ml Tramadol HCl (Ultram) 50 mg PO Q6H PRN PRN Reason: MODERATE PAIN Stop: 10/24/17 20:49 Last Admin: 09/05/17 09:27 Dose: 50 mg General: demented HEENT: NC/AT, PERRLA, EOMI, anicteric sclerae, throat clear Neck: Supple, No JVD, No thyromegaly, +2 carotid pulse wo bruit, No LAD, + JVD Lungs: CTAB Cardiovascular: RRR, Normal S1, Normal S2, without murmur Abdomen: non-tender, non-distended Extremities: clear Neurological: no change - Procedures Procedures: Procedures Procedure Code Date EXCIS KNEE SEMILUN CARTL 80.6 02/12/04 INJECT/INFUSE NEC 99.29 10/09/07 KNEE ARTHROSCOPY/SURGERY 50378 02/12/04 KNEE ARTHROSCOPY/SURGERY 43352 02/12/04 OTHER REPAIR OF KNEE 81.47 02/12/04 THER/PROPH/DIAG INJ, IV PUSH 06820 10/09/07 TX/PRO/DX INJ NEW DRUG ADDON 30286 10/09/07 Internal Medicine Assmt/Plan - Assessment Assessment: 1.DM. 2.ANEMIA. 3.DEMENTIA. - Plan Plan: CONTINUE ON CURRENT MEDICATION AND DIET. Nutritional Asmnt/Malnutr-PDOC - Dietary Evaluation Malnutrition Findings (Please click <Entered> for more info): Nutritional Asmnt/Malnutrition Start: 09/01/17 17: 04 Text: Status: Complete Freq: Protocol: Document 09/01/17 17:07 LCHENG (Rec: 09/01/17 17:11 ALONAG [email or web address]) Nutritional Asmnt/Malnutrition Patient General Information Nutritional Screening Low Risk Diagnosis psychosis Pertinent Medical Hx/Surgical Hx DM, dementia, HTN, CAD, CHF, CVA, TIA Subjective Information Per EMR, PO intake 25-75. Per LEARNING COORDINATOR, pt needs assist with feeding, consumed 100% of dinner last night and breakfast this morning. Current Diet Order/ Nutrition Support pureed, CCHO 60gm, lactose intolerant. boost glucose control Pertinent Medications vit D, pepcid, megace, glucophage, theragran, seroquel, senna Pertinent Labs 08/27 na 134, glucose 224, POC 160-243 Nutritional Hx/Data Height 1.55 m Height (Calculated Centimeters) 154.9 Current Weight (lbs) 52.163 kg Weight (Calculated Kilograms) 52.2 Weight (Calculated Grams) 24934.1 [place] Body Weight 105 Body Mass Index (BMI) 21.7 Weight Status Approriate GI Symptoms GI Symptoms None Last BM 08/28 Difficult in: None Skin Integrity/Comment: itnact Current %PO Good (75-100%) Estimated Nutritional Goals BEE in Kcals: Using Current wt Calories/Kcals/Kg 25-30 Kcals Calculated 9811-7172 Protein: Using Current wt Protein g/k-1.2 Protein Calculated 52-62 Fluid: ml 1300-1560ml (1ml/kcal) Nutritional Problem 1. Problem Problem altered nutrition related labs Etiology hx of DM Signs/Symptoms: glucose 224, POC 160-243 Malnutrition Alert Is there a minimum of two criteria No selected? Query Text:Check all the applicable criteria. A minimum of two criteria are recommended for diagnosis of either severe or non-severe malnutrition. Malnutrition Related to Morbid Obesity Malnutrition related to morbid obesity No Intervention/Recommendation Comments 1. Continue with [facility] pureed diet as ordered. MD to adjust insulin for optimal glycemic control. 2. Monitor PO intake, wt, labs and skin integrity 3. F/U as low risk in 7 days, 09/08, PO check 09/05 Expected Outcomes/Goals Expected Outcomes/Goals 1. PO intake to meet at least 75% of nutritional needs. 2. Wt stability, skin to remain intact, labs to approach WNL.
--- NOTE | 2017-09-11 22:20 | Progress Notes ---
DATE: 09/11/[address] Galindo. Case was discussed with staff of the patient, reviewed records. This is a well-known case to me. I have seen her before on 09/01/[address] Galindo. The patient continues to have episodes of yelling and screaming, confused, unable to make a safe plan for self-care, not sleeping well. She also was yelling in the middle of the night, but she is redirectable. She continues to be disoriented, confused, unable to make a safe plan for self-care and the patient continues to be unpredictable, impulsive, needing redirection not ready to go to a lesser level of care and she is on Aricept 10 mg at bedtime and Seroquel 125 mg 3 times a day with no side effects, no sedation, no nausea, no extrapyramidal symptoms. We will continue outpatient group therapy, milieu therapy and adjust the medication as needed. JOB# [id number]
[2017-09-12] MEDS: Venelex 60gm Tube TP SCH (08:06)
[2017-09-12] MEDS: Lactulose 10 Gm/15 mL 30mL UDC PO SCH ×2 (08:07→17:00)
[2017-09-12] MEDS: Multivitamin Tab PO SCH (08:08)
[2017-09-12] MEDS: Hydrogel 3 oz Tube TP SCH (08:09)
--- NOTE | 2017-09-12 13:39 | Internal Medicine Prog Note ---
Internal Medicine Subjective - Subjective Service Date: 09/12/17 Patient seen and examined:: without staff Patient is:: awake, non-verbal, in bed, confused Per staff patient has:: no adverse event Internal Medicine Objective - Results Result Diagrams: 08/27/17 09:25 08/27/17 09:25 Recent Labs: Laboratory Last Values WBC 8.5 Th/cmm (4.8-10.8) 08/27/17 09:25 RBC 3.94 Mil/cmm (3.80-5.20) 08/27/17 09:25 Hgb 12.6 gm/dL (12-16) 08/27/17 09:25 Hct 37.4 % (41.0-60) L 08/27/17 09:25 MCV 95.1 fl (81-100) 08/27/17 09:25 MCH 32.1 pg (27.0-31.0) H 08/27/17 09:25 MCHC Differential 33.8 pg (28.0-36.0) 08/27/17 09:25 RDW 13.6 % (11.5-20.0) 08/27/17 09:25 Plt Count 408 Th/cmm (150-400) H 08/27/17 09:25 MPV 7.3 fl 08/27/17 09:25 Neutrophils % 57.1 % (40.0-80.0) 08/27/17 09:25 Lymphocytes % 33.6 % (20.0-50.0) 08/27/17 09:25 Monocytes % 6.9 % (2.0-10.0) 08/27/17 09:25 Eosinophils % 1.7 % (0.0-5.0) 08/27/17 09:25 Basophils % 0.7 % (0.0-2.0) 08/27/17 09:25 Sodium 134 mEq/L (136-145) L 08/27/17 09:25 Potassium 3.9 mEq/L (3.5-5.1) 08/27/17 09:25 Chloride 102 mEq/L (98-107) 08/27/17 09:25 Carbon Dioxide 23.3 mEq/L (21.0-31.0) 08/27/17 09:25 Anion Gap 12.6 (7.0-16.0) 05/27/18 09:25 BUN 22 mg/dL (7-25) 08/27/17 09:25 Creatinine 0.9 mg/dL (0.6-1.2) 08/27/17 09:25 Est GFR ( Amer) TNP 08/27/17 09:25 Est GFR (Non-Af Amer) TNP 08/27/17 09:25 BUN/Creatinine Ratio 24.4 08/27/17 09:25 Glucose 224 mg/dL (70-105) H 08/27/17 09:25 POC Glucose 160 MG/DL (70 - 105) H 08/31/17 16:39 Hemoglobin A1c % 6.2 % (4.0-6.0) H 08/25/17 17:56 Whole Bld Lactic Acid 1.57 mmol/L (0.60-1.99) 08/25/17 17:56 Calcium 10.1 mg/dL (8.6-10.3) 08/27/17 09:25 Total Bilirubin 0.3 mg/dL (0.3-1.0) 08/25/17 17:56 AST 15 U/L (13-39) 08/25/17 17:56 ALT 18 U/L (7-52) 08/25/17 17:56 Alkaline Phosphatase 62 U/L (34-104) 08/25/17 17:56 Total Protein 6.7 gm/dL (6.0-8.3) 08/25/17 17:56 Albumin 3.6 gm/dL (3.7-5.3) L 08/25/17 17:56 Globulin 3.1 gm/dL 08/25/17 17:56 Albumin/Globulin Ratio 1.2 (1.0-1.8) 08/25/17 17:56 Urine Source CATH 08/27/17 14:50 Urine Color YELLOW 08/27/17 14:50 Urine Clarity CLEAR (CLEAR) 08/27/17 14:50 Urine pH 5.5 (4.6 - 8.0) 08/27/17 14:50 Ur Specific [place] >= 1.030 (1.005-1.030) 08/27/17 14:50 Urine Protein NEGATIVE mg/dL (NEGATIVE) 08/27/17 14:50 Urine Glucose (UA) NEGATIVE mg/dL (NEGATIVE) 08/27/17 14:50 Urine Ketones NEGATIVE mg/dL (NEGATIVE) 08/27/17 14:50 Urine Blood NEGATIVE (NEGATIVE) 08/27/17 14:50 Urine Nitrate NEGATIVE (NEGATIVE) 08/27/17 14:50 Urine Bilirubin NEGATIVE (NEGATIVE) 08/27/17 14:50 Urine Urobilinogen 0.2 E.U./dL (0.2 - 1.0) 08/27/17 14:50 Ur Leukocyte Esterase NEGATIVE (NEGATIVE) 08/27/17 14:50 Urine RBC 0-2 /hpf (0-5) 08/27/17 14:50 Urine WBC 2-5 /hpf (0-5) 08/27/17 14:50 Ur Epithelial Cells FEW /lpf (FEW) 08/27/17 14:50 Amorphous Sediment MODERATE URATES (NONE SEEN) 08/27/17 14:50 Urine Bacteria MODERATE /hpf (NONE SEEN) H 08/27/17 14:50 - Physical Exam Vitals and I&O: Vital Signs Temp 97.4 F 09/12/17 06:10 Pulse 70 09/12/17 06:10 Resp 19 09/12/17 06:10 BP 124/53 09/12/17 06:10 Pulse Ox 96 09/12/17 06:10 Intake & Output 09/11/17 09/12/17 09/12/17 18:59 06:59 18:59 Intake Total 360 240 Balance 360 240 Intake: Oral 360 240 Other: # Voids 3 2 # Bowel Movements 0 0 Active Medications: Current Medications Acetaminophen (Tylenol) 650 mg PO Q4H PRN PRN Reason: Mild Pain / Temp above 100 Stop: 10/24/17 20:44 Last Admin: 08/30/17 05:41 Dose: 650 mg Al Hydrox/Mg Hydrox/Simethicone (Maalox) 30 ml PO Q4H PRN PRN Reason: GI DISTRESS Stop: 10/24/17 20:44 Bandage/Support Products (Hydrogel) 1 appl TP DAILY [facility] Stop: 10/25/17 08:59 Last Admin: 09/12/17 08:09 Dose: 1 appl Bisacodyl (Dulcolax 5 Mg Ec Tab) 10 mg PO DAILY PRN PRN Reason: Constipation Stop: 10/24/17 20:49 [place] Oil/[place] Balsam/Trypsin (Venelex) 1 appl TP DAILY [facility] Stop: 10/28/17 15:59 Last Admin: 09/12/17 08:06 Dose: 1 appl Donepezil HCl (Aricept) 10 mg PO DAILY [facility] Stop: 11/04/17 08:59 Last Admin: 09/12/17 08:08 Dose: 10 mg Ergocalciferol (Vitamin D) 50,000 iu PO QWEEK [facility] Stop: 10/26/17 08:59 Last Admin: 09/10/17 08:53 Dose: 50,000 iu Famotidine (Pepcid) 20 mg PO DAILY [facility] Stop: 10/25/17 08:59 Last Admin: 09/12/17 08:08 Dose: 20 mg Lactulose (Cephulac) 10 gm PO BID [facility] Stop: 10/25/17 08:59 Last Admin: 09/12/17 08:07 Dose: 10 gm Magnesium Hydroxide (Milk Of Magnesia) 30 ml PO HS PRN PRN Reason: Constipation Megestrol Acetate (Megace) 400 mg PO DAILY [facility] Stop: 10/25/17 08:59 Last Admin: 09/12/17 08:06 Dose: 400 mg Metformin HCl (Glucophage) 500 mg PO DAILY [facility] Stop: 10/25/17 08:59 Last Admin: 09/12/17 08:09 Dose: 500 mg Multivitamins/Vitamin C (Theragran) 1 tab PO DAILY [facility] Stop: 10/25/17 08:59 Last Admin: 09/12/17 08:08 Dose: 1 tab Oxycodone HCl (Oxycodone Ir) 2.5 mg PO Q6H PRN PRN Reason: Pain (Severe) Stop: 10/25/17 07:29 Last Admin: 09/07/17 16:18 Dose: 2.5 mg Quetiapine Fumarate 100 mg/ (Quetiapine Fumarate 25 mg) 125 mg PO TID [facility] Stop: 11/07/17 08:59 Last Admin: 09/12/17 08:08 Dose: 125 mg Senna (Senna) 8.6 mg PO BID PRN PRN Reason: Constipation Stop: 10/24/17 20:49 Sodium Phosphate (Fleet Enema) 135 ml RC DAILY PRN PRN Reason: NO BM IN THREE DAYS Stop: 10/24/17 20:49 Last Admin: 08/27/17 10:39 Dose: 135 ml Tramadol HCl (Ultram) 50 mg PO Q6H PRN PRN Reason: MODERATE PAIN Stop: 10/24/17 20:49 Last Admin: 09/05/17 09:27 Dose: 50 mg General: demented HEENT: NC/AT, PERRLA, EOMI, anicteric sclerae, throat clear Neck: Supple, No JVD, No thyromegaly, +2 carotid pulse wo bruit, No LAD, + JVD Lungs: CTAB Cardiovascular: RRR, Normal S1, Normal S2, without murmur Abdomen: non-tender, non-distended Extremities: clear Neurological: no change - Procedures Procedures: Procedures Procedure Code Date EXCIS KNEE SEMILUN CARTL 80.6 02/12/04 INJECT/INFUSE NEC 99.29 10/09/07 KNEE ARTHROSCOPY/SURGERY 12524 02/12/04 KNEE ARTHROSCOPY/SURGERY 93824 02/12/04 OTHER REPAIR OF KNEE 81.47 02/12/04 THER/PROPH/DIAG INJ, IV PUSH 86755 10/09/07 TX/PRO/DX INJ NEW DRUG ADDON 40925 10/09/07 Internal Medicine Assmt/Plan - Assessment Assessment: 1.DM. 2.ANEMIA. 3.DEMENTIA. - Plan Plan: CONTINUE ON CURRENT MEDICATION AND DIET. Nutritional Asmnt/Malnutr-PDOC - Dietary Evaluation Malnutrition Findings (Please click <Entered> for more info): Nutritional Asmnt/Malnutrition Start: 09/01/17 17: 04 Text: Status: Complete Freq: Protocol: Document 09/01/17 17:07 DESMOND (Rec: 09/01/17 17:11 LISA [email or web address]) Nutritional Asmnt/Malnutrition Patient General Information Nutritional Screening Low Risk Diagnosis psychosis Pertinent Medical Hx/Surgical Hx DM, dementia, HTN, CAD, CHF, CVA, TIA Subjective Information Per EMR, PO intake 25-75. Per SKETCH MAKER, pt needs assist with feeding, consumed 100% of dinner last night and breakfast this morning. Current Diet Order/ Nutrition Support pureed, CCHO 60gm, lactose intolerant. boost glucose control Pertinent Medications vit D, pepcid, megace, glucophage, theragran, seroquel, senna Pertinent Labs 08/27 na 134, glucose 224, POC 160-243 Nutritional Hx/Data Height 1.55 m Height (Calculated Centimeters) 154.9 Current Weight (lbs) 52.163 kg Weight (Calculated Kilograms) 52.2 Weight (Calculated Grams) 38240.1 [place] Body Weight 105 Body Mass Index (BMI) 21.7 Weight Status Approriate GI Symptoms GI Symptoms None Last BM 08/28 Difficult in: None Skin Integrity/Comment: itnact Current %PO Good (75-100%) Estimated Nutritional Goals BEE in Kcals: Using Current wt Calories/Kcals/Kg 25-30 Kcals Calculated 3313-3539 Protein: Using Current wt Protein g/k-1.2 Protein Calculated 52-62 Fluid: ml 1300-1560ml (1ml/kcal) Nutritional Problem 1. Problem Problem altered nutrition related labs Etiology hx of DM Signs/Symptoms: glucose 224, POC 160-243 Malnutrition Alert Is there a minimum of two criteria No selected? Query Text:Check all the applicable criteria. A minimum of two criteria are recommended for diagnosis of either severe or non-severe malnutrition. Malnutrition Related to Morbid Obesity Malnutrition related to morbid obesity No Intervention/Recommendation Comments 1. Continue with [facility] pureed diet as ordered. MD to adjust insulin for optimal glycemic control. 2. Monitor PO intake, wt, labs and skin integrity 3. F/U as low risk in 7 days, 09/08, PO check 09/05 Expected Outcomes/Goals Expected Outcomes/Goals 1. PO intake to meet at least 75% of nutritional needs. 2. Wt stability, skin to remain intact, labs to approach WNL.
--- NOTE | 2017-09-12 20:32 | Progress Notes ---
DATE: 09/12/2017 SUBJECTIVE: Case was discussed with staff of the patient, reviewed records. The staff report that the patient has been yelling and screaming and crying and that they had to give her Ativan. The patient is unpredictable, impulsive, disoriented, confused, unable to participate in meaningful conversation or make safe plan for self-care. Continues to have poor insight. Unable to engage in any meaningful conversation. She is on Aricept 10 mg daily and she is on Seroquel 125 mg 3 times a day. No side effects to the medication, no sedation, no nausea and no extrapyramidal symptoms. We will continue the patient in group therapy, milieu therapy, and adjust the medication as needed. [facility]# [id number]
[2017-09-12] MEDS: oxyCODONE 5 mg IR Tab PO PRN (21:43)
[2017-09-13] MEDS: Multivitamin Tab PO SCH (08:17)
[2017-09-13] MEDS: Lactulose 10 Gm/15 mL 30mL UDC PO SCH ×2 (08:18→18:48)
[2017-09-13] MEDS ORDERED: Haloperidol Lactate 5 mg/mL 1mL Vial ONE (09:17)
[2017-09-13] MEDS: Hydrogel 3 oz Tube TP SCH (09:51)
[2017-09-13] MEDS: Venelex 60gm Tube TP SCH (09:51)
[2017-09-13] MEDS ORDERED: Haloperidol Lactate 5 mg/mL 1mL Vial IM STA ×2 (09:52→09:54)
--- NOTE | 2017-09-13 19:45 | Internal Medicine Prog Note ---
Internal Medicine Subjective - Subjective Service Date: 09/13/17 Patient seen and examined:: with staff Patient is:: awake, non-verbal, in bed, confused Per staff patient has:: no adverse event Internal Medicine Objective - Results Result Diagrams: 08/27/17 09:25 08/27/17 09:25 Recent Labs: Laboratory Last Values WBC 8.5 Th/cmm (4.8-10.8) 08/27/17 09:25 RBC 3.94 Mil/cmm (3.80-5.20) 08/27/17 09:25 Hgb 12.6 gm/dL (12-16) 08/27/17 09:25 Hct 37.4 % (41.0-60) L 08/27/17 09:25 MCV 95.1 fl (81-100) 08/27/17 09:25 MCH 32.1 pg (27.0-31.0) H 08/27/17 09:25 MCHC Differential 33.8 pg (28.0-36.0) 08/27/17 09:25 RDW 13.6 % (11.5-20.0) 08/27/17 09:25 Plt Count 408 Th/cmm (150-400) H 08/27/17 09:25 MPV 7.3 fl 08/27/17 09:25 Neutrophils % 57.1 % (40.0-80.0) 08/27/17 09:25 Lymphocytes % 33.6 % (20.0-50.0) 08/27/17 09:25 Monocytes % 6.9 % (2.0-10.0) 08/27/17 09:25 Eosinophils % 1.7 % (0.0-5.0) 08/27/17 09:25 Basophils % 0.7 % (0.0-2.0) 08/27/17 09:25 Sodium 134 mEq/L (136-145) L 08/27/17 09:25 Potassium 3.9 mEq/L (3.5-5.1) 08/27/17 09:25 Chloride 102 mEq/L (98-107) 08/27/17 09:25 Carbon Dioxide 23.3 mEq/L (21.0-31.0) 08/27/17 09:25 Anion Gap 12.6 (7.0-16.0) 05/27/18 09:25 BUN 22 mg/dL (7-25) 08/27/17 09:25 Creatinine 0.9 mg/dL (0.6-1.2) 08/27/17 09:25 Est GFR ( Amer) TNP 08/27/17 09:25 Est GFR (Non-Af Amer) TNP 08/27/17 09:25 BUN/Creatinine Ratio 24.4 08/27/17 09:25 Glucose 224 mg/dL (70-105) H 08/27/17 09:25 POC Glucose 160 MG/DL (70 - 105) H 08/31/17 16:39 Hemoglobin A1c % 6.2 % (4.0-6.0) H 08/25/17 17:56 Whole Bld Lactic Acid 1.57 mmol/L (0.60-1.99) 08/25/17 17:56 Calcium 10.1 mg/dL (8.6-10.3) 08/27/17 09:25 Total Bilirubin 0.3 mg/dL (0.3-1.0) 08/25/17 17:56 AST 15 U/L (13-39) 08/25/17 17:56 ALT 18 U/L (7-52) 08/25/17 17:56 Alkaline Phosphatase 62 U/L (34-104) 08/25/17 17:56 Total Protein 6.7 gm/dL (6.0-8.3) 08/25/17 17:56 Albumin 3.6 gm/dL (3.7-5.3) L 08/25/17 17:56 Globulin 3.1 gm/dL 08/25/17 17:56 Albumin/Globulin Ratio 1.2 (1.0-1.8) 08/25/17 17:56 Urine Source CATH 08/27/17 14:50 Urine Color YELLOW 08/27/17 14:50 Urine Clarity CLEAR (CLEAR) 08/27/17 14:50 Urine pH 5.5 (4.6 - 8.0) 08/27/17 14:50 Ur Specific [place] >= 1.030 (1.005-1.030) 08/27/17 14:50 Urine Protein NEGATIVE mg/dL (NEGATIVE) 08/27/17 14:50 Urine Glucose (UA) NEGATIVE mg/dL (NEGATIVE) 08/27/17 14:50 Urine Ketones NEGATIVE mg/dL (NEGATIVE) 08/27/17 14:50 Urine Blood NEGATIVE (NEGATIVE) 08/27/17 14:50 Urine Nitrate NEGATIVE (NEGATIVE) 08/27/17 14:50 Urine Bilirubin NEGATIVE (NEGATIVE) 08/27/17 14:50 Urine Urobilinogen 0.2 E.U./dL (0.2 - 1.0) 08/27/17 14:50 Ur Leukocyte Esterase NEGATIVE (NEGATIVE) 08/27/17 14:50 Urine RBC 0-2 /hpf (0-5) 08/27/17 14:50 Urine WBC 2-5 /hpf (0-5) 08/27/17 14:50 Ur Epithelial Cells FEW /lpf (FEW) 08/27/17 14:50 Amorphous Sediment MODERATE URATES (NONE SEEN) 08/27/17 14:50 Urine Bacteria MODERATE /hpf (NONE SEEN) H 08/27/17 14:50 - Physical Exam Vitals and I&O: Vital Signs Temp 97.1 F 09/13/17 15:37 Pulse 84 09/13/17 15:37 Resp 20 09/13/17 15:37 BP 111/57 09/13/17 15:37 Pulse Ox 98 09/13/17 15:37 Intake & Output 09/13/17 09/13/17 09/14/17 06:59 18:59 06:59 Intake Total 120 900 Balance 120 900 Intake: Oral 120 900 Other: # Voids 3 3 Active Medications: Current Medications Acetaminophen (Tylenol) 650 mg PO Q4H PRN PRN Reason: Mild Pain / Temp above 100 Stop: 10/24/17 20:44 Last Admin: 08/30/17 05:41 Dose: 650 mg Al Hydrox/Mg Hydrox/Simethicone (Maalox) 30 ml PO Q4H PRN PRN Reason: GI DISTRESS Stop: 10/24/17 20:44 Bandage/Support Products (Hydrogel) 1 appl TP DAILY JIL Stop: 10/25/17 08:59 Last Admin: 09/13/17 09:51 Dose: Not Given Bisacodyl (Dulcolax 5 Mg Ec Tab) 10 mg PO DAILY PRN PRN Reason: Constipation Stop: 10/24/17 20:49 Kimberly Oil/Luxembourger Balsam/Trypsin (Venelex) 1 appl TP DAILY JIL Stop: 10/28/17 15:59 Last Admin: 09/13/17 09:51 Dose: Not Given Donepezil HCl (Aricept) 10 mg PO DAILY [facility] Stop: 11/04/17 08:59 Last Admin: 09/13/17 08:18 Dose: 10 mg Ergocalciferol (Vitamin D) 50,000 iu PO QWEEK [facility] Stop: 10/26/17 08:59 Last Admin: 09/10/17 08:53 Dose: 50,000 iu Famotidine (Pepcid) 20 mg PO DAILY [facility] Stop: 10/25/17 08:59 Last Admin: 09/13/17 08:17 Dose: 20 mg Lactulose (Cephulac) 10 gm PO BID [facility] Stop: 10/25/17 08:59 Last Admin: 09/13/17 18:48 Dose: Not Given Magnesium Hydroxide (Milk Of Magnesia) 30 ml PO HS PRN PRN Reason: Constipation Megestrol Acetate (Megace) 400 mg PO DAILY [facility] Stop: 10/25/17 08:59 Last Admin: 09/13/17 08:18 Dose: 400 mg Metformin HCl (Glucophage) 500 mg PO DAILY [facility] Stop: 10/25/17 08:59 Last Admin: 09/13/17 08:16 Dose: 500 mg Multivitamins/Vitamin C (Theragran) 1 tab PO DAILY [facility] Stop: 10/25/17 08:59 Last Admin: 09/13/17 08:17 Dose: 1 tab Oxycodone HCl (Oxycodone Ir) 2.5 mg PO Q6H PRN PRN Reason: Pain (Severe) Stop: 10/25/17 07:29 Last Admin: 09/12/17 21:43 Dose: 2.5 mg Quetiapine Fumarate 100 mg/ (Quetiapine Fumarate 25 mg) 125 mg PO TID [facility] Stop: 11/07/17 08:59 Last Admin: 09/13/17 15:23 Dose: Not Given Senna (Senna) 8.6 mg PO BID PRN PRN Reason: Constipation Stop: 10/24/17 20:49 Sodium Phosphate (Fleet Enema) 135 ml RC DAILY PRN PRN Reason: NO BM IN THREE DAYS Stop: 10/24/17 20:49 Last Admin: 08/27/17 10:39 Dose: 135 ml Tramadol HCl (Ultram) 50 mg PO Q6H PRN PRN Reason: MODERATE PAIN Stop: 10/24/17 20:49 Last Admin: 09/05/17 09:27 Dose: 50 mg General: demented HEENT: NC/AT, PERRLA, EOMI, anicteric sclerae, throat clear Neck: Supple, No JVD, No thyromegaly, +2 carotid pulse wo bruit, No LAD, + JVD Lungs: CTAB Cardiovascular: RRR, Normal S1, Normal S2, without murmur Abdomen: non-tender, non-distended Extremities: clear Neurological: no change - Procedures Procedures: Procedures Procedure Code Date EXCIS KNEE SEMILUN CARTL 80.6 02/12/04 INJECT/INFUSE NEC 99.29 10/09/07 KNEE ARTHROSCOPY/SURGERY 59701 02/12/04 KNEE ARTHROSCOPY/SURGERY 04520 02/12/04 OTHER REPAIR OF KNEE 81.47 02/12/04 THER/PROPH/DIAG INJ, IV PUSH 02568 10/09/07 TX/PRO/DX INJ NEW DRUG ADDON 23438 10/09/07 Internal Medicine Assmt/Plan - Assessment Assessment: 1.DM. 2.ANEMIA. 3.DEMENTIA. - Plan Plan: CONTINUE ON CURRENT MEDICATION AND DIET. Nutritional Asmnt/Malnutr-PDOC - Dietary Evaluation Malnutrition Findings (Please click <Entered> for more info): Nutritional Asmnt/Malnutrition Start: 09/01/17 17: 04 Text: Status: Complete Freq: Protocol: Document 09/01/17 17:07 LCALONAG (Rec: 09/01/17 17:11 LCALONAG [email or web address]) Nutritional Asmnt/Malnutrition Patient General Information Nutritional Screening Low Risk Diagnosis psychosis Pertinent Medical Hx/Surgical Hx DM, dementia, HTN, CAD, CHF, CVA, TIA Subjective Information Per EMR, PO intake 25-75. 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 Current Diet Order/ Nutrition Support pureed, CCHO 60gm, lactose intolerant. boost glucose control Pertinent Medications vit D, pepcid, megace, glucophage, theragran, seroquel, senna Pertinent Labs 08/27 na 134, glucose 224, POC 160-243 Nutritional Hx/Data Height 1.55 m Height (Calculated Centimeters) 154.9 Current Weight (lbs) 52.163 kg Weight (Calculated Kilograms) 52.2 Weight (Calculated Grams) 30732.1 [place] Body Weight 105 Body Mass Index (BMI) 21.7 Weight Status Approriate GI Symptoms GI Symptoms None Last BM 08/28 Difficult in: None Skin Integrity/Comment: itnact Current %PO Good (75-100%) Estimated Nutritional Goals BEE in Kcals: Using Current wt Calories/Kcals/Kg 25-30 Kcals Calculated 3315-3637 Protein: Using Current wt Protein g/k-1.2 Protein Calculated 52-62 Fluid: ml 1300-1560ml (1ml/kcal) Nutritional Problem 1. Problem Problem altered nutrition related labs Etiology hx of DM Signs/Symptoms: glucose 224, POC 160-243 Malnutrition Alert Is there a minimum of two criteria No selected? Query Text:Check all the applicable criteria. A minimum of two criteria are recommended for diagnosis of either severe or non-severe malnutrition. Malnutrition Related to Morbid Obesity Malnutrition related to morbid obesity No Intervention/Recommendation Comments 1. Continue with [facility] pureed diet as ordered. MD to adjust insulin for optimal glycemic control. 2. Monitor PO intake, wt, labs and skin integrity 3. F/U as low risk in 7 days, 09/08, PO check 09/05 Expected Outcomes/Goals Expected Outcomes/Goals 1. PO intake to meet at least 75% of nutritional needs. 2. Wt stability, skin to remain intact, labs to approach WNL.
--- NOTE | 2017-09-14 04:33 | Discharge Summary ---
DATE OF DISCHARGE: 09/13/2017 AGE: 76. SEX: Female. PHYSICIAN: Dr. Galindo. FINAL DIAGNOSIS: PRIMARY DIAGNOSIS: Unspecified psychosis. SECONDARY DIAGNOSIS: Dementia, severe, with behavior disturbances and psychotic features. REASON FOR HOSPITALIZATION: The patient was admitted to the hospital from [facility] because of agitation as well as in irritable mood and crying spells. HOSPITAL COURSE: The patient continued to be extremely depressed and angry. The patient also was confused. She also has difficulty following directions and she had multiple episodes of yelling and screaming without ability to follow directions or staff to calm her down. The patient was given adequate and the dose adjusted to 10 mg every day and also was given Seroquel in a dose of 12.5 mg 3 times a day. The patient's was calmer and the patient was not as agitated and is slightly easier to redirect her, and the patient was discharged from the hospital back to [place]. Physical exam of the patient showed the patient has [id number] diabetes. The patient had no major medical problems while in the hospital. AFTER DISCHARGE PLANS: The patient discharged from the hospital and returned to [facility] with plans for followup there. EXPECTED OUTCOME AFTER DISCHARGE: Fair if the patient continued to take her psychotropic medications and followup. JOB# [id number]
== END 2017-09-13 19:45 | DRG 885 ==
LOC: ER 17:06 → GERO 19:52
PROVIDERS: ADMIT Psychiatry & Neurology Psychiatry; ATTEND Psychiatry & Neurology Psychiatry
DX: F29 Unspecified psychosis not due to a substance or known physiological condition (principal); F03.91 Unspecified dementia, unspecified severity, with behavioral disturbance; E44.1 Mild protein-calorie malnutrition; E11.9 Type 2 diabetes mellitus without complications; D64.9 Anemia, unspecified; I25.10 Atherosclerotic heart disease of native coronary artery without angina pectoris; I50.9 Heart failure, unspecified; I11.0 Hypertensive heart disease with heart failure; M19.90 Unspecified osteoarthritis, unspecified site; Z68.21 Body mass index [BMI] 21.0-21.9, adult; Z86.73 Personal history of transient ischemic attack (TIA), and cerebral infarction without residual deficits; Z88.5 Allergy status to narcotic agent; Z88.0 Allergy status to penicillin; Z88.2 Allergy status to sulfonamides
CPT/HCPCS: 36415-UA; 70450-TC; 71045-TC; 80048-TC; 80053-TC; 81001-TC; 82948-90; 83036-90; 83605; 85025-TC; 87086-90; J1200; J1630; J2060; Z7610